=== PATIENT | male | born 1950 | race Caucasian/White ===

== ENCOUNTER 2021-05-31 09:42 | Outpatient (REF) | payer MEDICARE, SELFPAY ==
[2021-05-31 11:08] LABS: Alanine Aminotransferase 19 U/L (0-40); Alkaline Phosphatase 137 U/L (39-117); Anion Gap 15 (12-20); Aspartate Amino Transferase 20 U/L (5-37); Bilirubin Total 0.7 mg/dL (0.0-1.0); Blood Urea Nitrogen 33 mg/dL (9-16); Calcium 9.5 mg/dL (8.4-10.2); Carbon Dioxide 25 mmol/L (22-29); Chloride 103 mmol/L (96-108); Cholesterol 213 mg/dL; Estimated Glomerular Filt Rate 45; Glucose Fasting 153 mg/dL (60-99); HDL Cholesterol 38 mg/dL; LDL Cholesterol Calculated 135 mg/dl; Potassium 5.1 mmol/L (3.3-5.1); Sodium 138 mmol/L (135-145); Total Protein 7.2 g/dL (6.5-8.0); Triglycerides 204 mg/dL
== END 2021-05-31 09:43 | disposition home or self-care (01) ==
LOC: HO.LAB 09:42
PROVIDERS: PCP Internal Medicine; Visit Provider Nurse Practitioner Family
DX: E78.5 Hyperlipidemia, unspecified (principal); I25.10 Atherosclerotic heart disease of native coronary artery without angina pectoris
CPT/HCPCS: 36415; 80053; 80061

== ENCOUNTER → 2021-06-04 09:00 | Outpatient (BNVA) | payer MEDICARE, SELFPAY | PROVIDERS: PCP Internal Medicine; Referring Provider Internal Medicine; Visit Provider Internal Medicine Cardiovascular Disease | DX: I25.10 Atherosclerotic heart disease of native coronary artery without angina pectoris (principal); E78.5 Hyperlipidemia, unspecified | CPT/HCPCS: 93005; 99212 ==

== ENCOUNTER 2021-07-15 11:42 | Outpatient (REF) | payer MEDICARE, SELFPAY ==
[2021-07-15 12:47] LABS: Cholesterol 155 mg/dL; HDL Cholesterol 37 mg/dL; LDL Cholesterol Calculated 85 mg/dl; Triglycerides 168 mg/dL
== END 2021-07-15 11:43 | disposition home or self-care (01) ==
LOC: HO.LAB 11:42
PROVIDERS: PCP Internal Medicine; Visit Provider Internal Medicine Cardiovascular Disease
DX: I25.10 Atherosclerotic heart disease of native coronary artery without angina pectoris (principal)
CPT/HCPCS: 36415; 80061

== ENCOUNTER 2022-01-09 13:24 | Outpatient (REF) | payer MEDICARE, SELFPAY ==
[2022-01-09 16:29] LABS: Estimated Average Glucose 151 mg/dL; Hemoglobin A1c % 6.9 %
== END 2022-01-09 13:25 | disposition home or self-care (01) ==
LOC: HO.HMGCLDS 13:24
PROVIDERS: Visit Provider Internal Medicine
DX: E11.9 Type 2 diabetes mellitus without complications (principal)
CPT/HCPCS: 36415; 83036

== ENCOUNTER → 2022-01-14 10:27 | Outpatient (BNVA) | payer MEDICARE, SELFPAY | PROVIDERS: PCP Internal Medicine; Referring Provider Internal Medicine; Visit Provider Internal Medicine Cardiovascular Disease | DX: I25.10 Atherosclerotic heart disease of native coronary artery without angina pectoris (principal); E78.5 Hyperlipidemia, unspecified | CPT/HCPCS: 93005; 99212 ==

== ENCOUNTER → 2022-01-15 08:47 | Outpatient (REF) | payer MEDICARE, SELFPAY ==
--- NOTE | 2022-01-15 08:49 | CA_ITS ---
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 Accuracy to assess for ischemia decreased due to inabilitty to reach 85% MPHR. He requested to stop due to fatigue and sob. In recovery his BP returned to baseline, 148/60. Test reviewed with Dr Hoffman Referred By: Husam Barnes Overread By: JOYCE KAUR
== END ==
LOC: HO.CARD 08:47
PROVIDERS: PCP Internal Medicine; Visit Provider Internal Medicine Cardiovascular Disease
DX: I25.10 Atherosclerotic heart disease of native coronary artery without angina pectoris (principal)
CPT/HCPCS: 93017

== ENCOUNTER 2022-03-21 08:27 | Outpatient (REF) | payer MEDICARE, SELFPAY ==
[2022-03-21 08:40] LABS: MANUAL DIFF FLAG NO
[2022-03-21 09:25] LABS: Basophils Absolute Auto 0.1 X10*3/uL (0.0-0.2); Basophils Percent Auto 0.6 % (0-2); Eosinophils Absolute Auto 0.5 X10*3/uL (0.0-0.4); Eosinophils Percent Auto 3.7 % (0-4); Hematocrit 40.7 % (42.0-52.0); Hemoglobin 13.1 g/dl (14.0-18.0); Imm Gran Abs Auto 0.05 X10*3/uL (0.00-0.03); Imm Gran Pct Auto 0.4 % (0.0-0.4); Lymphocytes Absolute Auto 2.3 X10*3/uL (1.2-4.9); Lymphocytes Percent Auto 17.2 % (20-40); Mean Corpuscular HGB Conc 32.2 g/dl (31.0-36.0); Mean Corpuscular Hemoglobin 29.3 pg (27.0-33.0); Mean Corpuscular Volume 91.1 fL (80.0-98.0); Mean Platelet Volume 10.5 fL (9.4-12.4); Monocytes Absolute Auto 1.5 X10*3/uL (0.1-1.2); Monocytes Percent Auto 11.3 % (2-11); Neutrophils Absolute Auto 8.9 x10*3/uL (2.0-8.3); Neutrophils Percent Auto 66.8 % (45-73); Platelet Count 356 X10*3/uL (160-400); Red Blood Count 4.47 X10*6/uL (4.60-5.80); Red Cell Distribution Width 14.7 % (11.0-16.0); White Blood Count 13.3 X10*3/uL (4.8-10.8)
[2022-03-21 09:59] LABS: Alanine Aminotransferase 43 U/L (0-40); Alkaline Phosphatase 123 U/L (39-117); Anion Gap 15 (12-20); Aspartate Amino Transferase 31 U/L (5-37); Bilirubin Direct 0.3 mg/dL (0.0-0.5); Bilirubin Total 0.7 mg/dL (0.0-1.0); Blood Urea Nitrogen 29 mg/dL (9-16); Carbon Dioxide 24 mmol/L (22-29); Chloride 106 mmol/L (96-108); Cholesterol 130 mg/dL; Estimated Glomerular Filt Rate 48; Glucose Fasting 165 mg/dL (60-99); HDL Cholesterol 37 mg/dL; LDL Cholesterol Calculated 69 mg/dl; Potassium 5.6 mmol/L (3.3-5.1); Sodium 139 mmol/L (135-145); Total Protein 7.2 g/dL (6.5-8.0); Triglycerides 120 mg/dL
[2022-03-21 10:21] LABS: PSA,Total (Free>4and<10) 0.94 ng/mL (0.00-4.00)
== END 2022-03-21 08:28 | disposition home or self-care (01) ==
LOC: HO.LAB 08:27
PROVIDERS: PCP Internal Medicine; Visit Provider Internal Medicine
DX: Z12.5 Encounter for screening for malignant neoplasm of prostate (principal); R53.83 Other fatigue; E11.9 Type 2 diabetes mellitus without complications; E78.5 Hyperlipidemia, unspecified
CPT/HCPCS: 36415; 80051; 80061; 80076; 82565; 82947; 84153; 84520; 85025

== ENCOUNTER 2022-04-13 08:07 | Outpatient (REF) | payer MEDICARE, SELFPAY ==
[2022-04-13 11:27] LABS: Estimated Average Glucose 151 mg/dL; Hemoglobin A1c % 6.9 %
== END 2022-04-13 08:08 | disposition home or self-care (01) ==
LOC: HO.HMGCLDS 08:07
PROVIDERS: PCP Internal Medicine; Visit Provider Internal Medicine
DX: E11.9 Type 2 diabetes mellitus without complications (principal)
CPT/HCPCS: 36415; 83036

== ENCOUNTER 2022-04-16 09:49 | Outpatient (REF) | payer MEDICARE, SELFPAY ==
[2022-04-16 11:01] LABS: Blood Urea Nitrogen 35 mg/dL (9-16); Estimated Glomerular Filt Rate 51
== END 2022-04-16 09:50 | disposition home or self-care (01) ==
LOC: HO.LAB 09:49
PROVIDERS: PCP Internal Medicine; Visit Provider Internal Medicine Cardiovascular Disease
DX: I25.10 Atherosclerotic heart disease of native coronary artery without angina pectoris (principal); I10 Essential (primary) hypertension; E87.5 Hyperkalemia
CPT/HCPCS: 36415; 82565; 84132; 84520; 99212

== ENCOUNTER → 2022-08-19 09:55 | Outpatient (BNVA) | payer MEDICARE, SELFPAY | PROVIDERS: PCP Internal Medicine; Referring Provider Internal Medicine; Visit Provider Internal Medicine Cardiovascular Disease | DX: I10 Essential (primary) hypertension (principal); I25.10 Atherosclerotic heart disease of native coronary artery without angina pectoris; E78.5 Hyperlipidemia, unspecified | CPT/HCPCS: 99212 ==

== ENCOUNTER → 2023-01-13 12:53 | Outpatient (BNVA) | payer MEDICARE, SELFPAY | PROVIDERS: PCP Internal Medicine; Referring Provider Internal Medicine; Visit Provider Internal Medicine Cardiovascular Disease | DX: I10 Essential (primary) hypertension (principal); I25.10 Atherosclerotic heart disease of native coronary artery without angina pectoris; E78.5 Hyperlipidemia, unspecified; R60.9 Edema, unspecified; Z79.02 Long term (current) use of antithrombotics/antiplatelets; Z79.82 Long term (current) use of aspirin; Z79.899 Other long term (current) drug therapy | CPT/HCPCS: 93005; 99212 ==

== ENCOUNTER 2023-05-15 08:54 | Outpatient (REF) | payer MEDICARE, SELFPAY ==
[2023-05-19 15:43] LABS: NT-proBNP 105 pg/mL (<125)
== END 2023-05-15 08:55 | disposition home or self-care (01) ==
LOC: HO.LAB 08:54
PROVIDERS: PCP Internal Medicine; Visit Provider Internal Medicine Cardiovascular Disease
DX: R60.9 Edema, unspecified (principal)
CPT/HCPCS: 36415; 83880

== ENCOUNTER 2023-05-19 13:48 | Outpatient (AMB) | payer MEDICARE, SELFPAY ==
[2023-05-19 13:49] VITALS: BP 138/64; PULSE 88; BMI 37.2
--- NOTE | 2023-05-19 13:49 | MHC.OFFVIS ---
Intake Vital Signs 05/19/23 13:49 Height 5 ft 9 in Weight 252 lb 3.341 oz BMI 37.2 BP 138/64 Blood Pressure Location Lt brachial Position Sitting Pulse 88 Pulse Source Pulse Oximeter Intake Visit Reasons: 4 mth f/up Intake Note: 4 month follow up. Automation Tester Required: No Accompanied by: Self / Same As Patient Allergies No Known Allergies Allergy (Verified 05/19/23 13:51) Medication List - Last Reconciled 05/19/23 by Husam Barnes MD aspirin 81 mg PO DAILY atorvastatin 80 mg PO BEDTIME 90 days clopidogrel (Plavix) 75 mg PO DAILY ezetimibe 10 mg PO DAILY fluorouracil 5% appl topical BID furosemide (Lasix) 20 mg PO DAILY glyburide 10 mg PO BID hydrochlorothiazide 50 mg PO DAILY isosorbide mononitrate ER 30 mg PO DAILY lisinopril 20 mg PO BID metformin 1,000 mg PO BID metoprolol succinate ER 200 mg PO DAILY nifedipine ER 90 mg PO DAILY HPI HPI Comments History of Present Illness Details Pleasant 73-year-old gentleman here for follow-up. He has background history of coronary artery disease for which he underwent RCA PCI in the past he had moderate LAD disease which was medically managed. He has not complained of any symptoms since the RCA PCI. 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 He had a hypertensive response to exercise during the stress test but did not have any ischemic EKG changes or chest discomfort. He was able to exercise to a maximum workload of 6.4 metabolic equivalents. On follow-up today he has no new complaints. His blood pressure is 140/62. He has been taking medications regularly. He is currently taking hydrochlorothiazide 50 mg daily, lisinopril 20 mg twice a day, metoprolol succinate 200 mg daily and nifedipine extended release 90 mg daily. Denying any chest discomfort shortness of breath. Does not take extra salt in diet. Does not drink alcohol. Not on any NSAIDs. 01/13/23: On follow-up today he has significant peripheral edema. He is saying his legs are swollen all the time. Denying any orthopnea or PND. Saying his breathing is at his baseline. We discussed and added low-dose Lasix 20 mg once a day. He was advised to get repeat blood workup as well as BNP. It appears he did not have any blood workup. 7/12/23: He returns for follow-up. He still has lower extremity edema. He is denying any chest pain or shortness of breath. Taking medications regularly. Blood pressure control is reasonable. [facility] Surgical History History of cardiac cath Family History Mother No problems noted. Father No problems noted. Social History Alcohol intake: never Patient Tobacco Use Status: Never used Tobacco Review of Systems Const Denies weakness ENT Denies dizziness Card Denies chest pain, Denies chest pain with activity, Denies syncope, Denies rapid heart rate, Denies pedal edema, Denies edema, Denies leg edema, Denies lightheadedness, Denies palpitations, Denies dyspnea, Denies dyspnea on exertion and Denies orthopnea Resp Denies cough, Denies dyspnea and Denies dyspnea on exertion GI Denies hematochezia and Denies change in stool character Musc Denies abnormal gait, Denies muscle cramps, Denies muscle weakness, Denies numbness, Denies radiating pain into limb and Denies tingling Neuro Denies abnormal gait, Denies dizziness, Denies syncope, Denies numbness, Denies tingling and Denies weakness Endo Denies palpitations Physical Exam Vital Signs: Last Vital Signs Pulse 88 05/19/23 13:49 BP 138/64 05/19/23 13:49 BMI result Body Mass Index 37.2 GENERAL APPEARANCE: in no acute distress, pleasant. NECK: no carotid bruit, no jugular venous distention. SKIN: no suspicious lesions, warm and dry. HEART: no murmurs, regular rate and rhythm. LUNGS: clear to auscultation bilaterally. ABDOMEN: soft, nontender. EXTREMITIES: 1+ edema. PERIPHERAL PULSES: equal. NEUROLOGIC: No gross deficits, AAO X 3 Assessment & Plan Assessment & Plan (1) Essential hypertension: Code(s): I10 - Essential (primary) hypertension (2) CAD (coronary artery disease): Code(s): I25.10 - Atherosclerotic heart disease of [place] coronary artery without angina pectoris (3) Peripheral edema: Code(s): R60.9 - Edema, unspecified (4) HLD (hyperlipidemia): Code(s): E78.5 - Hyperlipidemia, unspecified Plan [age] gentleman with known coronary artery disease with previous PCI. He has background of hypertension and hyperlipidemia. He is currently taking atorvastatin and ezetimibe. Blood pressure control is good. He has peripheral edema most likely due to nifedipine. He is on hydrochlorothiazide and Lasix 20 mg once a day. Clinically not in heart failure. We will arrange an elective echocardiogram for him. He should have fasting lipid panel once a year and by yearly basic metabolic panel. He is saying he had blood workup done recently but it appears it was not done at [facility]. Thank you for allowing me to participate in the care of your patient. Please feel free to contact me if you have any questions. Orders: Orders CA echo transthoracic complete Today I25.10 - Atherosclerotic heart disease of [place] coronary artery without angina pectoris Coding Level of Care Code Est Pt Level 4 (32744) Diagnoses Essential hypertension I10 CAD (coronary artery disease) I25.10 Peripheral edema R60.9 HLD (hyperlipidemia) E78.5
== END 2023-05-19 14:03 | disposition home or self-care (01) ==
PROVIDERS: Visit Provider Internal Medicine Cardiovascular Disease
DX: I10 Essential (primary) hypertension (principal); I25.10 Atherosclerotic heart disease of native coronary artery without angina pectoris; R60.9 Edema, unspecified; E78.5 Hyperlipidemia, unspecified
CPT/HCPCS: 99214

== ENCOUNTER → 2023-05-19 13:48 | Outpatient (BNVA) | payer MEDICARE, SELFPAY | PROVIDERS: Visit Provider Internal Medicine Cardiovascular Disease | DX: I10 Essential (primary) hypertension (principal); I25.10 Atherosclerotic heart disease of native coronary artery without angina pectoris; E78.5 Hyperlipidemia, unspecified; R60.9 Edema, unspecified | CPT/HCPCS: 99212 ==

== ENCOUNTER → 2023-06-22 09:53 | Outpatient (REF) | payer MEDICARE, SELFPAY ==
--- NOTE | 2023-06-22 09:55 | CA_ITS ---
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 Study Quality: Fair/Contrast Conclusions: - Mildly increased right ventricular cavity size. There is normal right ventricular systolic function. - The left atrium is mildly dilated. The right atrium is normal in size. - There is mild calcification of the aortic valve. There is no aortic valve stenosis. There is no aortic valve regurgitation. - There is mild dilatation of the sinuses of Valsalva measuring 4.12 cm and mild dilatation of the ascending aorta measuring 3.70 cm. - Normal left ventricular cavity size. There is mildly increased left ventricular wall thickness. The left ventricular systolic function is hyperdynamic. The visually estimated ejection fraction is >70%. There is no evidence of regional wall motion abnormalities. Diastolic function is normal for age. Findings Procedure Information Contrast agent, definity, is being given per protocol without apparent complications. Left Ventricle Normal left ventricular cavity size. There is mildly increased left ventricular wall thickness. The left ventricular systolic function is hyperdynamic. The visually estimated ejection fraction is >70%. There is no evidence of regional wall motion abnormalities. Diastolic function is normal for age. Right Ventricle Mildly increased right ventricular cavity size. There is normal right ventricular systolic function. Atria The left atrium is mildly dilated. The right atrium is normal in size. Aortic Valve There is mild calcification of the aortic valve. There is no aortic valve stenosis. There is no aortic valve regurgitation. Mitral Valve Normal mitral valve structure and function. There is no mitral valve regurgitation. There is no mitral valve stenosis. Pulmonic Valve The pulmonic valve is likely normal. Tricuspid Valve Normal tricuspid valve structure and function. There is trace tricuspid valve regurgitation. Normal right atrial pressure. There is no evidence of pulmonary hypertension. Great Vessels There is mild dilatation of the sinuses of Valsalva measuring 4.12 cm and mild dilatation of the ascending aorta measuring 3.70 cm. The visualized portions of the pulmonary artery and branches are normal. Venous The inferior vena cava is normal in size and collapses greater than 50% with inspiration. Pericardium/Pleural There is no evidence of pericardial effusion. Prior Study Comparison No prior study available for comparison. Measurements 2D Linear Measurements IVSd: 1.34 0.6-0.9/0.6-1.0 cm LVIDd: 4.59 3.9-5.3/4.2-5.9 cm LVIDd Index: 2.01 2.4-3.2/2.2-3.1 cm/m2 LVIDs: 2.42 2.0-3.6 cm LVPWd: 1.06 0.7-1.1 cm LA Diam: 3.60 2.7-3.8/3.0-4.0 cm LAIDs Index: 1.58 1.5-2.3 cm/m2 LV Mass: 254.62 67-162/88-224 g LV Mass Index: 111.68 43-95/49-115 g/m2 LVOT Diam: 2.30 3.0+(-)1.3 cm 2D Systolic Function EF 4C: 59.90 >55% EF 2C: 62.00 >55% EF BiP: 60.90 >55% Mitral Valve MV Pk E: 0.63 MV PK A: 0.93 MV Decel Time: 120.00 E/A: 0.70 E'Lateral: 11.40 E'Medial: 9.14 E/E' Med: 6.80 E/E' Lat: 5.50 PHT: 35.00 MVA PHT: 6.29 Decel Sargent: 5.23 Aortic Valve AoV Pk Yaw: 1.39 AoV Mn Yaw: 1.00 AoV VTI: 0.29 AoV Pk Grad: 8.00 Aov Mn Grad: 4.00 MELISSA Cont.VTI: 3.11 LVOT LVOT Pk Yaw: 1.06 LVOT Mn Yaw: 0.76 LVOT VTI: 0.22 LVOT Pk Grad: 4.00 LVOT Mn Grad: 3.00 LVOT Diam: 2.30 LVOT Area: 4.15 Diastolic Function MV Pk E: 0.63 MV Pk A: 0.93 E/A: 0.70 E'Medial: 9.14 E/E' Med: 6.80 E' Laterial: 11.40 E/E' Lat: 5.50 Right Ventricle TAPSE (mm): 24.40 TVS' Yaw: 14.80 Tricuspid Valve TR Pk Yaw: 2.74 TR Pk Grad: 30.00 RA Press: 3.00 RVSP: 33.00 Great Vessels Aorta Sinus of Valsalva: 4.12 2.0-3.[address] [place]: 3.19 1.7-3.4 cm Ao Asc: 3.70 2.1-3.4 cm Updated in Other Vendor System with Status of Final Husam Barnes MD electronically signed on 06/23/2023 12:33:51 PM with status of Final
== END ==
LOC: HO.CARD 09:53
PROVIDERS: PCP Internal Medicine; Visit Provider Internal Medicine Cardiovascular Disease
DX: I25.10 Atherosclerotic heart disease of native coronary artery without angina pectoris (principal)
CPT/HCPCS: 93306; Q9957

== ENCOUNTER → 2023-06-22 09:55 | Outpatient (BNV) | payer MEDICARE, SELFPAY | PROVIDERS: PCP Internal Medicine; Visit Provider Internal Medicine Cardiovascular Disease | DX: I25.10 Atherosclerotic heart disease of native coronary artery without angina pectoris (principal) | CPT/HCPCS: 93306 ==

== ENCOUNTER 2023-07-31 09:08 | Outpatient (REF) | payer MEDICARE, SELFPAY ==
[2023-07-31 11:00] LABS: Estimated Average Glucose 137 mg/dL; Hemoglobin A1c % 6.4 % (<6.0)
== END 2023-07-31 09:09 | disposition home or self-care (01) ==
LOC: HO.LAB 09:08
PROVIDERS: PCP Internal Medicine; Visit Provider Internal Medicine
DX: E11.9 Type 2 diabetes mellitus without complications (principal)
CPT/HCPCS: 36415; 83036

== ENCOUNTER 2023-08-13 13:14 | Outpatient (AMB) | payer MEDICARE, SELFPAY ==
--- NOTE | 2023-08-13 13:52 | MHC.OFFWIV ---
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 no known injuries. Patient Tobacco Use Status: Never used Tobacco Allergies No Known Allergies Allergy (Verified 08/13/23 13:53) Do you need a note to return to daycare/school/sports/work: No HPI HPI Comments History of Present Illness Details This is a 73-year-old male who presents to the office today for sick visit. Patient complaining of atraumatic left wrist pain and swelling x1 day. Patient states he started to developed left wrist pain and swelling yesterday to the point where he was unable to flex or extend his wrist. Today, the pain and swelling have persisted but patient is able to perform range of motion of his wrist with less pain. He states that the pain has improved since yesterday. He denies any known trauma or injury to the area and states that the pain and swelling came out of nowhere. He denies any numbness/ weakness /paresthesias of his upper extremity. [facility] Surgical History History of cardiac cath Family History Mother No problems noted. Father No problems noted. Social History Alcohol intake: never Patient Tobacco Use Status: Never used Tobacco Review of Systems Const All systems reviewed & are unremarkable except as noted in HPI and below Reports no additional complaints Eyes Reports no additional complaints ENT Reports no additional complaints Card Reports no additional complaints Resp Reports no additional complaints GI Reports no additional complaints Reports no additional complaints Musc Reports no additional complaints Skin/Breast Reports system reviewed and no additional complaints, except as documented Neuro Reports no additional complaints Psych Reports no additional complaints Endo Reports no additional complaints [place]/Lymph Reports no additional complaints Aller/Immun Reports no additional complaints Physical Exam Vital Signs: Last Vital Signs Pulse 80 08/13/23 13:53 BP 120/80 08/13/23 13:53 Pulse Ox 95 08/13/23 13:53 Oxygen Delivery Method Room Air 08/13/23 13:53 Const Other: Vital signs reviewed. Constitutional: Non-toxic appearing. No acute distress. Well-developed and well-nourished. HEENT: Normocephalic and atraumatic. Skin: Warm and dry. No rashes or lesions noted. Neck: Full and painless range of motion. No cervical lymphadenopathy. Cardio: Regular rate. No lower extremity edema. No JVD. Pulmonary: No respiratory distress. No accessory muscle usage. Gastrointestinal: Soft, nontender, and nondistended in all 4 quadrants. Musculoskeletal: Swelling of the left wrist with tenderness to palpation of the metacarpals on the dorsal aspect of the wrist. He has full but painful flexion and extension of the wrist. There is no tenderness to palpation of the proximal radius/ ulna or the radial/ulnar styloid process. There is no erythema or ecchymosis noted. Neuro: Alert and oriented x4. Cranial nerves 2-12 grossly intact. No focal deficits appreciated. Psych: Normal mood and affect. Assessment & Plan Assessment & Plan (1) Swelling of left wrist: Code(s): M25.432 - Effusion, left wrist Plan: This is a 73-year-old male presenting to the office complaining of atraumatic left wrist pain / swelling. On physical examination, there is swelling of the left wrist as well as tenderness to palpation of the metacarpals dorsal aspect of the wrist. Patient appeared to have an atraumatic left wrist effusion. No evidence of erythema and patient is able to move his wrist so septic arthritis is unlikely. An x-ray of the left wrist was obtained and shows a possible fracture of the waist of the scaphoid. We attempted to call the patient to discuss his results with him but we did not receive a phone call. Patient should proceed to the emergency room for CT scan to definitively rule out a scaphoid fracture as this would need to be immobilized. Patient was provided with orthopedic surgery referral. He was also given a prescription for p.o. prednisone 40 mg daily times 5 days as he is unable to take NSAIDs due to a history of cardiac disease. Orders: Orders XR wrist LT 2V Today M25.432 - Effusion, left wrist Referrals Orthopedics Referral M25.432 - Effusion, left wrist Medications: New prednisone Monitor your blood sugars while taking this medication. 40 mg (2 x 20 mg) PO DAILY 5 tabs 0RF prednisone Monitor your blood sugars while taking this medication. 40 mg (2 x 20 mg) PO DAILY 10 tabs 0RF Coding Level of Care Code New Pt Level 3 (13998) Diagnoses Swelling of left wrist M25.432
[2023-08-13 13:53] VITALS: BP 120/80; PULSE 80; O2SAT 95
== END 2023-08-13 14:29 | disposition home or self-care (01) ==
PROVIDERS: PCP Internal Medicine; Visit Provider Physician Assistant Medical
DX: M25.432 Effusion, left wrist (principal)
CPT/HCPCS: 99203

== ENCOUNTER 2023-08-13 14:23 | Outpatient (REF) | payer MEDICARE, SELFPAY | END 2023-08-13 14:24 | disposition home or self-care (01) | LOC: HO.HMGCX 14:23 | PROVIDERS: PCP Internal Medicine; Visit Provider Physician Assistant Medical | DX: M25.432 Effusion, left wrist (principal) | CPT/HCPCS: 73100 ==

== ENCOUNTER 2023-08-14 08:53 | Emergency (ER) | payer MEDICARE, SELFPAY ==
[2023-08-14 09:02] VITALS: BP 154/70; PULSE 74; RESP 18; TEMP 36.6; O2SAT 96; BMI 36.0
--- NOTE | 2023-08-14 09:55 | ED.EXTPRO ---
HPI - Extremity Problem General Chief complaint: Extremity Injury, Upper Stated complaint: L arm pain Time Seen by Provider: 08/14/23 09:48 Source: patient Mode of arrival: ambulatory Limitations: no limitations History of Present Illness HPI Narrative: 73-year-old male with a history of hypertension, hyperlipidemia, coronary artery disease presents to the ER with complaints of atraumatic left wrist pain for 2 days. Patient reports he went to walk-in urgent care yesterday and had x-rays of the wrist. He was prescribed prednisone for 5 days and given referral for Hand surgery to follow-up. Patient was called and informed that his x-ray was abnormal and he should seek care in the emergency room. The patient denies any previous injury or trauma. He denies any redness, warmth, fevers, chills, numbness, tingling of the extremity. Related Data Home Medications Medication Instructions Recorded Confirmed aspirin 81 mg tablet,delayed 81 mg PO DAILY 06/04/21 05/19/23 release glyburide 5 mg tablet 10 mg PO BID 06/04/21 05/19/23 metformin 1,000 mg tablet 1,000 mg PO BID 06/04/21 05/19/23 metoprolol succinate 200 mg 200 mg PO DAILY 06/04/21 05/19/23 tablet,extended release 24 hr nifedipine 90 mg tablet,extended 90 mg PO DAILY 06/04/21 05/19/23 release lisinopril 20 mg tablet 20 mg PO BID 01/14/22 05/19/23 fluorouracil 5 % topical cream appl topical BID 04/16/22 05/19/23 Previous Rx's Medication Instructions Recorded clopidogrel 75 mg tablet (Plavix) 75 mg PO DAILY #90 tabs 01/14/21 ezetimibe 10 mg tablet 10 mg PO DAILY #90 tabs 10/12/22 hydrochlorothiazide 50 mg tablet 50 mg PO DAILY #60 tabs 01/06/23 furosemide 20 mg tablet (Lasix) 20 mg PO DAILY #60 tabs 01/13/23 isosorbide mononitrate 30 mg 30 mg PO DAILY #90 tabs 03/12/23 tablet,extended release 24 hr atorvastatin 80 mg tablet 80 mg PO BEDTIME 90 days #90 tabs 03/15/23 prednisone 20 mg tablet 40 mg (2 x 20 mg) PO DAILY #10 tabs 08/13/23 Allergies Allergy/AdvReac Type Severity Reaction Status Date / Time No Known Allergies Allergy Verified 08/14/23 09:02 Review of Systems Review of Systems: Yes all other systems are reviewed and are negative Constitutional: Constitutional: Reports no additional constitutional complaints, Denies body ache(s), Denies chills, Denies fever(s), Denies headache(s) and Denies weakness Eyes: Eyes: Reports no additional eye complaints and Denies change in vision ENT: Reports system reviewed and no additional complaints, except as documented, Denies dizziness, Denies headache(s), Denies nasal congestion, Denies nasal discharge and Denies neck pain Cardiovascular: Cardiovascular: Reports no additional cardiovascular complaints, Denies chest pain, Denies leg edema and Denies dyspnea Respiratory: Respiratory: Reports no additional respiratory complaints, Denies cough and Denies dyspnea Gastrointestinal: Gastrointestinal: Reports no additional gastrointestinal complaints, Denies abdominal pain, Denies diarrhea, Denies nausea and Denies vomiting Genitourinary: Genitourinary: Denies urinary incontinence Musculoskeletal: Musculoskeletal: Reports no additional musculoskeletal complaints, Denies back pain, Reports arthralgias, Denies joint swelling, Denies limited range of motion, Denies neck pain, Denies numbness and Denies tingling Integumentary/Breasts: Skin/Breast: Reports system reviewed and no additional complaints, except as docu and Denies rash Neurologic: Reports system reviewed and no additional complaints, except as documented, Denies Abnormal speech present, Denies dizziness, Denies headache(s), Denies numbness, Denies tingling and Denies weakness PMFSH Past Medical History Attestation statement: The following information was validated with the patient. Source: old records reviewed and nursing notes reviewed Surgical History History of cardiac cath Family History Family History Mother No problems noted. Father No problems noted. Social History Social History Alcohol intake: never Patient Tobacco Use Status: Never used Tobacco Advance Directives: No Advance Directives Information Provided: Yes Physical Exam Vital Signs: Vital Signs: Last Vital Signs Temp 98 F 08/14/23 09:02 Pulse 74 10/07/23 09:02 Resp 18 08/14/23 09:02 BP 154/70 H 08/14/23 09:02 Pulse Ox 96 08/14/23 09:02 O2 Del Method Room Air 08/14/23 09:02 BMI result Body Mass Index 36.0 Const: General: cooperative, healthy appearing, comfortable and no acute distress Orientation/consciousness: patient oriented x3 Limitations: no limitations HEENT: Head: Yes normal to inspection Ears: hearing grossly normal bilaterally General nose exam: Normal external nose present Face and sinus: Yes normal facial exam Mouth: Normal oral and palatal mucosa present Throat: Yes posterior oropharynx normal Eyes: General: appearance normal, both eyes and all related structures Pupils: Equal, round and reactive pupils present Neck: Neck: Yes normal visual inspection Chest: Chest palpation & inspection: normal inspection of the chest Resp: Effort & Inspection: normal respiratory effort Auscultation: clear to auscultation bilaterally Cardio: Rate: regular rate Rhythm: regular rhythm Peripheral pulses: Peripheral pulses 2+ throughout GI: Inspection: Yes normal to inspection Palpation (GI): Soft to palpation and nontender Auscultation: normal bowel sounds Back/Spine/Pelvis: Thoracic/Lumbar Spine: thoracic and lumbar spine normal to inspection Skin: General skin exam: no rashes or lesions noted Neuro: General: patient oriented x3, no focal motor deficits and normal sensation to monofilament Cranial nerves: Yes Equal, round and reactive pupils present Cognition (Neuro): normal cognition Speech: No Abnormal speech present Gait exam (Neuro): Normal gait present Motor exam (neuro): 5/5 motor strength present throughout Extrem: Other: There is some mild tenderness over the left dorsal wrist. There is no tenderness over the snuffbox. There is full passive an active range of motion of the wrist. I do not appreciate any erythema, warmth, swelling. There are normal radial and ulnar pulses. General: Yes normal to inspection Medical Decision Making Medical Decision Making MDM Narrative: 73-year-old male with a history of hypertension, hyperlipidemia, coronary artery disease presents to the ER with complaints of atraumatic left wrist pain for 2 days. Patient reports he went to walk-in urgent care yesterday and had x-rays of the wrist. He was prescribed prednisone for 5 days and given referral for Hand surgery to follow-up. Patient was called and informed that his x-ray was abnormal and he should seek care in the emergency room. The patient denies any previous injury or trauma. He denies any redness, warmth, fevers, chills, numbness, tingling of the extremity. There is some mild tenderness over the left dorsal wrist. There is no tenderness over the snuffbox. There is full passive an active range of motion of the wrist. I do not appreciate any erythema, warmth, swelling. There are normal radial and ulnar pulses. I reviewed the outpatient x-rays which are concerning for a possible scaphoid fracture. This seems less likely as the patient has had no injury or trauma. Additionally he has no significant tenderness over the snuffbox or any limited range of motion to suggest a fracture. I will place him in a thumb spica Velcro splint. He has already been given referral for Orthopedics and is on prednisone which I recommend he continue With this plan of care. Reviewed worrisome signs and symptoms of when to return to the emergency room. Comfortable plan for discharge home. Differential Diagnosis Differential Diagnoses: The differential diagnosis associated with the presentation includes Fracture- see discussion above arthritis low concern for septic arthritis with full range of motion Admission/Observation Consideration of admission/observation: Escalation of care including admission/observation considered less likely fracture based on clinical exam in history of present illness. No evidence of septic arthritis suggest need for further workup and/or admission or orthopedic consultation emergently External Record Review External record reviewed: Outpatient record and Prior outpatient radiology reviewed outpatient urgent care visit and x-rays Tests considered The following testing was considered but not selected: no need for emergent CT or MRI. Patient can follow-up with orthopedics outpatient for this. Prescription Management I considered prescription management with: Pain Medication Chronic Conditions Patient?s care impacted by: Hypertension Discharge Plan Discharge Clinical Impression: Acute wrist pain Patient Disposition: Home, Self-Care Instructions: Arthralgia (ED) Additional Instructions: your x-ray is concerning for a fracture in the scaphoid bone. Clinically you do not have any tenderness over this area and no history of any fall or trauma to suggest a fracture. You were prescribed prednisone by urgent care. I recommend that you continue this. Call the orthopedic team on Wednesday to make an appointment to follow-up. Take Tylenol for pain additionally. Use the splint for comfort. Heat or ice to the area. Prescriptions: No Action clopidogrel [Plavix] 75 mg tablet 75 mg PO DAILY Qty: 90 1RF ezetimibe 10 mg tablet 10 mg PO DAILY Qty: 90 3RF hydrochlorothiazide 50 mg tablet 50 mg PO DAILY Qty: 60 3RF isosorbide mononitrate 30 mg tablet extended release 24 hr 30 mg PO DAILY Qty: 90 3RF atorvastatin 80 mg tablet 80 mg PO BEDTIME 90 Days Qty: 90 3RF prednisone 20 mg tablet 40 mg PO DAILY Qty: 10 0RF Rx Instructions: Monitor your blood sugars while taking this medication. glyburide 5 mg tablet 10 mg PO BID metoprolol succinate 200 mg tablet extended release 24 hr 200 mg PO DAILY nifedipine 90 mg tablet extended release 90 mg PO DAILY metformin 1,000 mg tablet 1,000 mg PO BID aspirin 81 mg tablet,delayed release (DR/EC) 81 mg PO DAILY lisinopril 20 mg tablet 20 mg PO BID fluorouracil 5 % cream topical BID furosemide [Lasix] 20 mg tablet 20 mg PO DAILY Qty: 60 3RF [place]: [facility] [place] Group] - 5 days Interventions: ED Discharge Assessment Last Done: 08/14/23 10:37 Discharge Date/Time: 08/14/23 10:38
== END 2023-08-14 10:38 | disposition home or self-care (01) ==
PROVIDERS: Emergency Provider Emergency Medicine Emergency Medical Services; PCP Internal Medicine
DX: M25.532 Pain in left wrist (principal); I10 Essential (primary) hypertension; E78.5 Hyperlipidemia, unspecified; Z79.82 Long term (current) use of aspirin; Z79.899 Other long term (current) drug therapy
CPT/HCPCS: 29125; 99282; 99283

== ENCOUNTER 2023-08-24 10:41 | Outpatient (REF) | payer MEDICARE, SELFPAY ==
--- NOTE | ~2023-08-24 | XR_ITS ---
EXAMINATION: XR wrist LT w scaphoid CLINICAL INFORMATION: Male of 73 years with history of Reason for Exam M25.532 - Pain in left wrist COMPARISON: 08/13/2023 TECHNIQUE: PA, lateral, and oblique views of the left wrist. FINDINGS: The bones and soft tissues are normal. No fracture. Alignment is anatomic with normal joint spaces. No erosions or abnormal soft tissue calcifications. No fracture of the left wrist. Anatomic alignment. No lytic or sclerotic osseous lesions. Diffuse degenerative changes of the left wrist with joint space narrowing and osteophytosis. No vascular calcifications. No soft tissue edema. XR/XR wrist LT w scaphoid IMPRESSION: Normal left wrist. No evidence of scaphoid fracture
== END 2023-08-24 10:42 | disposition home or self-care (01) ==
LOC: HO.HOSX 10:41
PROVIDERS: PCP Internal Medicine; Visit Provider Orthopaedic Surgery
DX: M25.532 Pain in left wrist (principal)
CPT/HCPCS: 73110; 99202

== ENCOUNTER 2023-08-24 10:41 | Outpatient (AMB) | payer MEDICARE, SELFPAY ==
--- NOTE | 2023-08-24 11:10 | MHC.OFFVIS ---
Intake Vital Signs 08/24/23 11:11 Height 5 ft 9 in Weight 245 lb BMI 36.2 Intake Visit Reasons: scaphoid injury-Left wrist DOI 08/14/23 Intake Note: Juan Antonio 73 yr old male who is right h and dominant, presents today for a new patient visit for his scaphoid injury-Left wrist DOI 08/14/23. Patient reports he started to experience soreness and worsen by the end of the day. States pain was so severe he was not able to move wrist. Denies injury, numbness, tingling or locking of any finger. Seen at urgent care where xray were done and was told he might have a fracture. Currently states pain has subside and is able to move his hand and wrist with no pain. A1C is a 6.5, last checked in July. Allergies No Known Allergies Allergy (Verified 08/24/23 11:26) HPI scaphoid injury-Left wrist DOI 08/14/23 HPI Details Juan Antonio is a 73 year old right hand dominant man who presents to discuss his left wrist pain. He reports having pain in his left wrist, which began on 08/12/23 and worsened over the next few days. No known injury. He was seen in the ED on 08/14/23, given PO Prednisone and referred here as he was told his X-rays were abnormal . Currently he denies any pain and feels that he is able to move his wrist comfortably. He denies any falls, injury, numbness, or tingling. 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 [facility] Surgical History History of cardiac cath Family History Mother No problems noted. Father No problems noted. 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 Review of Systems Const All systems reviewed & are unremarkable except as noted in HPI and below Physical Exam Vital Signs: BMI result Body Mass Index 36.2 Const General: cooperative, healthy appearing and no acute distress Orientation/consciousness: patient oriented x3 HEENT Head: Yes normocephalic and Yes atraumatic Eyes EOM: EOMs intact bilaterally Resp Effort & Inspection: normal respiratory effort and able to speak in complete sentences Cardio Jugular venous distension: no JVD Skin General skin exam: turgor normal Rashes: no rashes Neuro General: patient oriented x3 Extrem Other: Evaluation of Left Upper Extremity: The patient is alert, oriented, and in no acute distress Neuro: Median, Ulnar, Radial nerves motor and sensory intact and sensation is normal to the tips of all digits Vascular: Cap refill brisk ROM: He can make a tight fist with good strength and no pain Full & symmetrical pronosupination Nearly symmetrical wrist flexion & extension without pain No tenderness over distal radius, DRUJ, or distal ulna He says he was tender over the dorsal aspect of the distal radius when I pushed on it, but denies any tenderness today No tenderness over the 1st dorsal compartment No snuffbox or scaphoid tubercle tenderness Mild tenderness over the dorsal aspect of the radial lunate joint Skin: No lacerations or abrasions. General: No Ecchymosis. No Erythema or evidence of infection. Radiographs: 3 views of the left wrist were taken and viewed by me today in clinic. They show some small cystic changes in the distal third of the scaphoid, no evidence of fracture or dislocation Psych Appearance: grossly normal Affect: normal affect Attitude: cooperative Assessment & Plan Assessment & Plan (1) Left wrist pain: Code(s): M25.532 - Pain in left wrist Plan Assessment & Plan: 1. Left wrist pain No clinical or radiographic evidence of scaphoid fracture today I educated him about this condition He currently has no pain or limited use of his wrist I suspect this may have been a tendinitis but this seems to have improved with rest and bracing No surgical intervention indicated at this time I recommend he continue activity as tolerated He is no longer wearing his brace If his symptoms return he can follow up to discuss Otherwise follow-up prn Scribed for Tonya Schaffer MD by Juancarlos Lux, medical surgical tech, on 08/24/23 at 12:00 PM, EST. Orders: Orders XR wrist LT w scaphoid Today M25.532 - Pain in left wrist Coding Level of Care Code New Pt Level 3 (09619) Diagnoses Left wrist pain M25.532
[2023-08-24 11:11] VITALS: BMI 36.2
== END 2023-08-24 12:00 | disposition home or self-care (01) ==
PROVIDERS: PCP Internal Medicine; Visit Provider Orthopaedic Surgery
DX: M25.532 Pain in left wrist (principal)
CPT/HCPCS: 99203

== ENCOUNTER 2023-10-25 14:24 | Outpatient (AMB) | payer MEDICARE, SELFPAY ==
[2023-10-25 14:27] VITALS: BP 120/70; PULSE 77; BMI 35.9
--- NOTE | 2023-10-25 14:27 | MHC.OFFVIS ---
Intake Vital Signs 10/25/23 14:27 Height 5 ft 9 in Weight 242 lb 15.19 oz BMI 35.9 BP 120/70 Blood Pressure Location Lt brachial Position Sitting Pulse 77 Pulse Source Pulse Oximeter Intake Visit Reasons: 5 mth f/up Intake Note: 5 mnth f/up pt its feeling good Automatic Vulcanizing Operator Required: No Accompanied by: Self / Same As Patient Allergies No Known Allergies Allergy (Verified 08/24/23 11:26) Medication List - Last Reconciled 10/25/23 by Husam Barnes MD aspirin 81 mg PO DAILY atorvastatin 80 mg PO BEDTIME 90 days clopidogrel (Plavix) 75 mg PO DAILY ezetimibe 10 mg PO DAILY fluorouracil 5% appl topical BID furosemide (Lasix) 20 mg PO DAILY glyburide 10 mg PO BID hydrochlorothiazide 50 mg PO DAILY isosorbide mononitrate ER 30 mg PO DAILY lisinopril 20 mg PO BID metformin 1,000 mg PO BID metoprolol succinate ER 200 mg PO DAILY nifedipine ER 90 mg PO DAILY prednisone 40 mg (2 x 20 mg) PO DAILY HPI HPI Comments History of Present Illness Details Pleasant 73-year-old gentleman here for follow-up. He has background history of coronary artery disease for which he underwent RCA PCI in the past he had moderate LAD disease which was medically managed. He has not complained of any symptoms since the RCA PCI. 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 He had a hypertensive response to exercise during the stress test but did not have any ischemic EKG changes or chest discomfort. He was able to exercise to a maximum workload of 6.4 metabolic equivalents. On follow-up today he has no new complaints. His blood pressure is 140/62. He has been taking medications regularly. He is currently taking hydrochlorothiazide 50 mg daily, lisinopril 20 mg twice a day, metoprolol succinate 200 mg daily and nifedipine extended release 90 mg daily. Denying any chest discomfort shortness of breath. Does not take extra salt in diet. Does not drink alcohol. Not on any NSAIDs. 01/13/23: On follow-up today he has significant peripheral edema. He is saying his legs are swollen all the time. Denying any orthopnea or PND. Saying his breathing is at his baseline. We discussed and added low-dose Lasix 20 mg once a day. He was advised to get repeat blood workup as well as BNP. It appears he did not have any blood workup. 05/19/23: He returns for follow-up. He still has lower extremity edema. He is denying any chest pain or shortness of breath. Taking medications regularly. Blood pressure control is reasonable. 10/25/2023: He returns for follow-up. He has been doing well. No chest discomfort or shortness of breath. 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 Blood pressure control is good. [facility] Surgical History History of cardiac cath Family History Mother No problems noted. Father No problems noted. 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 Review of Systems Const Reports chills, Reports fatigue, Reports fever(s), Reports frequent falls, Reports weakness, Reports weight gain and Reports weight loss ENT Reports dizziness Card Reports chest pain, Reports leg edema, Reports lightheadedness, Reports palpitations, Reports dyspnea and Reports dyspnea on exertion Resp Reports cough, Reports dyspnea and Reports dyspnea on exertion GI Reports hematochezia Musc Reports abnormal gait, Reports muscle weakness, Reports numbness, Reports radiating pain into limb and Reports tingling Neuro Reports abnormal gait, Reports dizziness, Reports frequent falls, Reports numbness, Reports tingling and Reports weakness Endo Reports fatigue and Reports palpitations Physical Exam Vital Signs: Last Vital Signs Pulse 77 10/25/23 14:27 BP 120/70 10/25/23 14:27 BMI result Body Mass Index 35.9 GENERAL APPEARANCE: in no acute distress, pleasant. NECK: no carotid bruit, no jugular venous distention. SKIN: no suspicious lesions, warm and dry. HEART: no murmurs, regular rate and rhythm. LUNGS: clear to auscultation bilaterally. ABDOMEN: soft, nontender. EXTREMITIES: 1+ edema. PERIPHERAL PULSES: equal. NEUROLOGIC: No gross deficits, AAO X 3 Assessment & Plan Assessment & Plan (1) Peripheral edema: Code(s): R60.9 - Edema, unspecified (2) Essential hypertension: Code(s): I10 - Essential (primary) hypertension (3) Stable angina: Code(s): I20.89 - Other forms of angina pectoris Plan Pleasant 73 gentleman is here for follow-up. He has stable angina. Clinically stable. Advised him to stop the aspirin and take Plavix monotherapy. Blood pressure control is good. He has peripheral edema due to nifedipine. Clinically not in heart failure. He will see us back in 6 months. Thank you for allowing me to participate in the care of your patient. Please feel free to contact me if you have any questions. Coding Level of Care Code Est Pt Level 4 (21331) Diagnoses Peripheral edema R60.9 Essential hypertension I10 Stable angina I20.89
== END 2023-10-25 14:41 | disposition home or self-care (01) ==
PROVIDERS: PCP Internal Medicine; Visit Provider Internal Medicine Cardiovascular Disease
DX: R60.9 Edema, unspecified (principal); I10 Essential (primary) hypertension; I20.89 Other forms of angina pectoris
CPT/HCPCS: 99214

== ENCOUNTER → 2023-10-25 14:24 | Outpatient (BNVA) | payer MEDICARE, SELFPAY | PROVIDERS: PCP Internal Medicine; Visit Provider Internal Medicine Cardiovascular Disease | DX: I20.89 Other forms of angina pectoris (principal); I10 Essential (primary) hypertension; R60.9 Edema, unspecified; Z79.82 Long term (current) use of aspirin | CPT/HCPCS: 99212 ==

== ENCOUNTER 2024-04-22 09:05 | Emergency (ER) | payer MEDICARE, SELFPAY ==
--- NOTE | ~2024-04-22 | US_ITS ---
EXAMINATION: US VENOUS WITH DOPPLER UPPER EXTREMITY, RIGHT CLINICAL INFORMATION: Pain and swelling. COMPARISON: None available. TECHNIQUE: Ultrasound of the upper extremity is performed using compression sonography and color and pulse Doppler flow with assessment of augmentation of flow. There is also imaging and Doppler assessment of the jugular and subclavian veins. Spectral analysis with color-flow imaging is performed. FINDINGS: Respiratory variation, normal compression, and augmented flow are noted throughout the upper extremity including the axillary, brachial, cubital, and radial and ulnar veins. There is normal flow in the internal jugular and subclavian veins. There is no visible deep or superficial thrombophlebitis. In the lateral soft tissues of the right proximal upper extremity, there is a 5.2 x 1 x 1 cm well-defined, reniform structure with a central fatty hilum most suggestive of a lymph node. If the patient's symptoms progress, a followup ultrasound in 5 -7 days might be of value to exclude proximal propagation from a nonvisualized distal arm vein. US/US venous duplex UE RT IMPRESSION: 1. No DVT demonstrated in the right upper extremity. 2. Prominent nonaggressive appearing lymph node in the lateral aspect of the proximal right upper extremity; recommend correlation with physical examination and out of precaution follow-up with targeted short-term ultrasound.
--- NOTE | ~2024-04-22 | XR_ITS ---
X-RAY RIGHT CLAVICLE AND RIGHT SHOULDER CLINICAL HISTORY: Pain. COMPARISON: No relevant prior studies are available for comparison. TECHNIQUE: 1 view of the right clavicle and 4 views of the right shoulder. FINDINGS: No acute fracture or subluxation. Moderate degenerative osteoarthritis of the acromioclavicular and glenohumeral joints. No unusual soft tissue calcifications. Included portion of the right-sided ribs and right lung are within normal limits. XR/XR clavicle RT IMPRESSION: No acute fracture or subluxation. Moderate degenerative osteoarthritis.
--- NOTE | ~2024-04-22 | XR_ITS ---
X-RAY RIGHT CLAVICLE AND RIGHT SHOULDER CLINICAL HISTORY: Pain. COMPARISON: No relevant prior studies are available for comparison. TECHNIQUE: 1 view of the right clavicle and 4 views of the right shoulder. FINDINGS: No acute fracture or subluxation. Moderate degenerative osteoarthritis of the acromioclavicular and glenohumeral joints. No unusual soft tissue calcifications. Included portion of the right-sided ribs and right lung are within normal limits. XR/XR shoulder RT min 2V IMPRESSION: No acute fracture or subluxation. Moderate degenerative osteoarthritis.
[2024-04-22 09:08] VITALS: BP 150/60; PULSE 85; RESP 18; TEMP 36.6; O2SAT 94; BMI 36.9
--- NOTE | 2024-04-22 09:37 | ECG_ITS ---
Test Reason : R SHOULDER PAIN Blood Pressure : / mmHG Vent. Rate : 082 BPM Atrial Rate : 082 BPM P-R Int : 288 ms QRS Dur : 100 ms QT Int : 352 ms P-R-T Axes : 037 014 043 degrees QTc Int : 411 ms Sinus rhythm with 1st degree A-V block Otherwise normal ECG No previous ECGs available Referred By: Richa Luz Electronically Signed By:SIVA PILLAI
--- NOTE | 2024-04-22 09:43 | ED_ITS ---
HPI - Extremity Problem General Chief complaint: Extremity Problem Stated complaint: R arm pain, no injury Time Seen by Provider: 04/22/24 09:15 Source: patient, RN notes reviewed and old records reviewed Mode of arrival: ambulatory History of Present Illness ED Provider: Richa Luz PA-C HPI Narrative: 74-year-old male with a past medical history of CAD s/p stent placement on Plavix, HLD, HTN, peripheral edema, presenting to the ED complaining of atraumatic right shoulder pain x1 week worsening over the past few days. Reports decreased ROM secondary to pain. Denies known injury, trauma or fall/heavy lifting, numbness/tingling, chest being, shortness of breath. Reports compliance with medications MD Complaint: extremity pain Related Data Home Medications ?Medication ?Instructions ?Recorded ?Confirmed glyburide 5 mg tablet 10 mg PO BID 06/04/21 10/25/23 metformin 1,000 mg tablet 1,000 mg PO BID 06/04/21 10/25/23 metoprolol succinate 200 mg 200 mg PO DAILY 06/04/21 10/25/23 tablet,extended release 24 hr nifedipine 90 mg tablet,extended 90 mg PO DAILY 06/04/21 10/25/23 release lisinopril 20 mg tablet 20 mg PO BID 01/14/22 10/25/23 fluorouracil 5 % topical cream appl topical BID 04/16/22 10/25/23 Previous Rx's ?Medication ?Instructions ?Recorded clopidogrel 75 mg tablet (Plavix) 75 mg PO DAILY #90 tabs 01/14/21 prednisone 20 mg tablet 40 mg (2 x 20 mg) PO DAILY #10 tabs 08/13/23 hydrochlorothiazide 50 mg tablet 50 mg PO DAILY #60 tabs 08/30/23 ezetimibe 10 mg tablet 10 mg PO DAILY #90 tabs 10/11/23 furosemide 20 mg tablet (Lasix) 20 mg PO DAILY #60 tabs 10/28/23 atorvastatin 80 mg tablet 80 mg PO BEDTIME 90 days #90 tabs 01/26/24 isosorbide mononitrate 30 mg 30 mg PO DAILY #90 tabs 02/01/24 tablet,extended release 24 hr acetaminophen 500 mg tablet 500 mg PO Q6H PRN fever or pain 04/22/24 (Tylenol Extra Strength) #14 tabs cyclobenzaprine 5 mg tablet 5 mg PO Q8H PRN pain (scale score 04/22/24 7-10) 5 days #14 tabs lidocaine 5 % topical patch 1 patch topical DAILY PRN pain #30 04/22/24 (Lidoderm) ea morphine 15 mg immediate release 15 mg PO Q6H PRN pain (scale score 04/22/24 tablet 7-10) 3 days #5 tabs Allergies Allergy/AdvReac Type Severity Reaction Status Date / Time No Known Allergies Allergy Verified 04/22/24 09:08 Review of Systems Review of Systems: Constitutional: No Fever, No Chills ENT/Mouth: No Ear Pain, No Nasal Congestion, No sore throat, No Rhinorrhea, No Swallowing Difficulty Cardiovascular: No Chest Pain, No SOB Respiratory: No Cough Gastrointestinal: No Nausea, No Vomiting, No Diarrhea, No Constipation, No Abdominal pain Musculoskeletal: + joint pain, No Myalgias, + Joint Swelling Skin: No Skin Lesions, No rash Neuro: No Weakness, No Numbness, No Paresthesias Yes all other systems are reviewed and are negative Constitutional: Constitutional: Reports as per [facility] Past Medical History Attestation statement: The following information was validated with the patient. Source: old records reviewed Surgical History History of cardiac cath Family History Family History Mother No problems noted. Father No problems noted. 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 Physical Exam Vital Signs: Vital Signs: Last Vital Signs Temp 97.9 F 04/22/24 09:08 Pulse 85 04/22/24 09:08 Resp 18 04/22/24 09:08 BP 150/60 H 04/22/24 09:08 Pulse Ox 94 04/22/24 09:08 O2 Del Method Room Air 04/22/24 09:08 BMI result Body Mass Index 36.9 Const: General: cooperative, healthy appearing and no acute distress Orientation/consciousness: patient oriented x3 Limitations: no limitations HEENT: Head: Yes normal to inspection and Yes atraumatic Ears: hearing grossly normal bilaterally General nose exam: Normal external nose present Face and sinus: Yes normal facial exam Eyes: General: appearance normal, both eyes and all related structures EOM: EOMs intact bilaterally Neck: Neck: Yes normal visual inspection and Yes no meningeal signs Resp: Effort & Inspection: normal respiratory effort and no respiratory distress Cardio: Rate: regular rate Heart sounds: S1 normal heart sound present and S2 normal heart sound present Peripheral pulses: radial pulses present Skin: Rashes: no rashes Wounds: no wounds Neuro: General: patient oriented x3, tone normal and no meningeal signs Cranial nerves: Yes CN's II-XII intact bilaterally Gait exam (Neuro): Normal gait present Extrem: Other: +RUE swelling noted. No pitting edema. No erythema/warmth or crepitus. Right shoulder/clavicle with reproducible tenderness. Decreased ROM secondary to pain. Neurovascularly intact distally. Course Course Course Narrative: XR clavicle RT/XR shoulder RT min 2V IMPRESSION: No acute fracture or subluxation. Moderate degenerative osteoarthritis. US venous duplex UE RT IMPRESSION: 1. No DVT demonstrated in the right upper extremity. 2. Prominent nonaggressive appearing lymph node in the lateral aspect of the proximal right upper extremity; recommend correlation with physical examination and out of precaution follow-up with targeted short-term ultrasound. > 1216--on re-evaluation patient reports symptomatic improvement after medications given. Results discussed with patient including worrisome signs and symptoms and strict return precautions, and when to return to the emergency department. They verbalized understanding and feel safe for discharge at this time. Medications Administered Discontinued Medications Generic Name Dose Route Start Last Admin Trade Name Gita PRN Reason Stop Dose Admin Acetaminophen 650 mg 04/22/24 11:28 04/22/24 11:48 Acetaminophen 325 Mg Tablet PO 04/22/24 11:29 650 mg ONCE ONE Administration Cyclobenzaprine HCl 5 mg 04/22/24 09:37 04/22/24 09:57 Cyclobenzaprine Hcl 5 Mg Tablet PO 04/22/24 09:38 5 mg ONCE ONE Administration Morphine Sulfate 15 mg 04/22/24 11:28 04/22/24 11:48 Morphine Sulfate Immed Release 15 Mg Tablet PO 04/22/24 11:29 15 mg ONCE ONE Administration Medical Decision Making Medical Decision Making MDM Narrative: 74-year-old male with a past medical history of CAD s/p stent placement on Plavix, HLD, HTN, peripheral edema, presenting to the ED complaining of atraumatic right shoulder pain x1 week worsening over the past few days. On exam vital signs stable, NAD, nontoxic appearing, physical exam as above with right upper extremity swelling, right shoulder/clavicular tenderness and dec reased ROM. Neurovascularly intact. Concern for arthritis vs strain vs rotator cuff injury vs DVT. No evidence of cellulitis. Compartments soft. Lower suspicion for atypical ACS or arterial compromise Plan: EKG, x-ray, venous duplex ultrasound, pain control Please refer to course for remaining clinical decision making, interpretation of labs/imaging results, and discussions with consultants and/or family members. Differential Diagnosis Differential Diagnoses: The differential diagnosis associated with the presentation includes As above Admission/Observation Consideration of admission/observation: Escalation of care including admission/observation considered Lab Data MDM Lab Attestation statement: I reviewed the patient's lab results. Independent Interpretation I performed an independent interpretation of an: EKG, Plain X-Ray and Ultrasound Radiology Impression Discussion of test interpretation with radiology: I have reviewed the radiologist's reading. External Record Review External record reviewed: Inpatient record, Office record, Outpatient record, Prior outpatient labs, Prior outpatient radiology, Primary care record and Outside ED record Tests considered The following testing was considered but not selected: As above Chronic Conditions Patient?s care impacted by: Hypertension and Other (CAD) Discharge Plan Discharge Clinical Impression: Osteoarthritis of right shoulder Patient Disposition: Home, Self-Care Instructions: Osteoarthritis (DC) Additional Instructions: X-ray show osteoarthritis of her right shoulder. You do not have a blood clot They also see an inflamed lymph node in your right upper extremity. If symptoms persist we recommend a repeat ultrasound in 5-7 days Please have close follow-up with your doctor. Flexeril is a muscle relaxer, take at night as it makes you drowsy, do not drive, drink alcohol, or operate machinery while taking it Lidoderm patches are numbing patches, apply to painful area In addition take Tylenol at home Morphine as an opiate pain medication, take only when pain is severe for the next 3 If symptoms persist or worsen, pain becomes unbearable, you developed urinary retention or incontinence, or weakness return to the ED Prescriptions: New acetaminophen [Tylenol Extra Strength] 500 mg tablet 500 mg PO Q6H PRN (Reason: fever or pain) Qty: 14 0RF lidocaine [Lidoderm] 5 % adhesive patch,medicated 1 patch topical DAILY MDD remove after 12 hours PRN (Reason: pain) Qty: 30 0RF Rx Instructions: leave on most painful area for up to 12 hrs cyclobenzaprine 5 mg tablet 5 mg PO Q8H PRN (Reason: pain (scale score 7-10)) 5 Days Qty: 14 0RF morphine 15 mg tablet 15 mg PO Q6H PRN (Reason: pain (scale score 7-10)) 3 Days Qty: 5 0RF Rx Instructions: Partial Fill upon patient request. No Action clopidogrel [Plavix] 75 mg tablet 75 mg PO DAILY Qty: 90 1RF hydrochlorothiazide 50 mg tablet 50 mg PO DAILY Qty: 60 6RF ezetimibe 10 mg tablet 10 mg PO DAILY Qty: 90 3RF furosemide [Lasix] 20 mg tablet 20 mg PO DAILY Qty: 60 6RF atorvastatin 80 mg tablet 80 mg PO BEDTIME 90 Days Qty: 90 3RF isosorbide mononitrate 30 mg tablet extended release 24 hr 30 mg PO DAILY Qty: 90 3RF prednisone 20 mg tablet 40 mg PO DAILY Qty: 10 0RF Rx Instructions: Monitor your blood sugars while taking this medication. glyburide 5 mg tablet 10 mg PO BID metoprolol succinate 200 mg tablet extended release 24 hr 200 mg PO DAILY nifedipine 90 mg tablet extended release 90 mg PO DAILY metformin 1,000 mg tablet 1,000 mg PO BID lisinopril 20 mg tablet 20 mg PO BID fluorouracil 5 % cream topical BID Referrals: [facility] [place] [facility] [Provider Group] Ash Tucker MD [Primary Care Provider] - 3 days Print Language: Bengali
[2024-04-22] MEDS: Cyclobenzaprine HCl 5 MG TABLET PO (09:57)
[2024-04-22] MEDS: Acetaminophen 325 MG TABLET 650 MG PO (11:48)
[2024-04-22] MEDS: Morphine Sulfate Immed Release 15 MG TABLET PO (11:48)
[2024-04-22 12:51] VITALS: BP 127/56; PULSE 80; RESP 16; TEMP 37; O2SAT 92
== END 2024-04-22 12:45 | disposition home or self-care (01) ==
PROVIDERS: Emergency Provider Emergency Medicine Emergency Medical Services; PCP Internal Medicine
DX: M19.011 Primary osteoarthritis, right shoulder (principal); M25.511 Pain in right shoulder; M79.601 Pain in right arm; R60.9 Edema, unspecified; I10 Essential (primary) hypertension; E78.5 Hyperlipidemia, unspecified; Z79.02 Long term (current) use of antithrombotics/antiplatelets; Z79.899 Other long term (current) drug therapy
CPT/HCPCS: 73000; 73030; 93005; 93971; 99284

== ENCOUNTER → 2024-04-22 09:37 | Outpatient (BNV) | payer MEDICARE, SELFPAY | PROVIDERS: Emergency Provider Emergency Medicine Emergency Medical Services; PCP Internal Medicine; Visit Provider Internal Medicine | DX: I44.0 Atrioventricular block, first degree (principal) | CPT/HCPCS: 93010 ==

== ENCOUNTER 2024-05-03 15:41 | Outpatient (AMB) | payer MEDICARE, SELFPAY ==
[2024-05-03 15:58] VITALS: BP 110/60; PULSE 78; BMI 33.9
--- NOTE | 2024-05-03 15:58 | A.OFFVIS_ITS ---
Vital Signs 05/03/24 15:58 Height 5 ft 9 in Weight 229 lb 11.547 oz BMI 33.9 BP 110/60 Blood Pressure Location Lt brachial Position Sitting Pulse 78 Pulse Source Pulse Oximeter Intake Visit Reasons: 6 month follow up [employer] Required: No Accompanied by: Self / Same As Patient Allergies No Known Allergies Allergy (Verified 04/22/24 09:08) Medication List - Last Reconciled 05/03/24 by Husam Barnes MD acetaminophen (Tylenol Extra Strength) 500 mg PO Q6H PRN atorvastatin 80 mg PO BEDTIME 90 days clopidogrel (Plavix) 75 mg PO DAILY cyclobenzaprine 5 mg PO Q8H PRN 5 days ezetimibe 10 mg PO DAILY fluorouracil 5% appl topical BID furosemide (Lasix) 20 mg PO DAILY glyburide 10 mg PO BID hydrochlorothiazide 50 mg PO DAILY isosorbide mononitrate ER 30 mg PO DAILY lidocaine 5% (Lidoderm) 1 patch topical DAILY PRN MDD remove after 12 hours lisinopril 20 mg PO BID metformin 1,000 mg PO BID metoprolol succinate ER 200 mg PO DAILY morphine 15 mg PO Q6H PRN 3 days nifedipine ER 90 mg PO DAILY prednisone 40 mg (2 x 20 mg) PO DAILY HPI Comments Details: Pleasant 74-year-old gentleman here for follow-up. He has background history of coronary artery disease for which he underwent RCA PCI in the past he had moderate LAD disease which was medically managed. He has not complained of any symptoms since the RCA PCI. 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 He had a hypertensive response to exercise during the stress test but did not have any ischemic EKG changes or chest discomfort. He was able to exercise to a maximum workload of 6.4 metabolic equivalents. On follow-up today he has no new complaints. His blood pressure is 140/62. He has been taking medications regularly. He is currently taking hydrochlorothiazide 50 mg daily, lisinopril 20 mg twice a day, metoprolol succinate 200 mg daily and nifedipine extended release 90 mg daily. Denying any chest discomfort shortness of breath. Does not take extra salt in diet. Does not drink alcohol. Not on any NSAIDs. 01/13/23: On follow-up today he has significant peripheral edema. He is saying his legs are swollen all the time. Denying any orthopnea or PND. Saying his breathing is at his baseline. We discussed and added low-dose Lasix 20 mg once a day. He was advised to get repeat blood workup as well as BNP. It appears he did not have any blood workup. 05/19/23: He returns for follow-up. He still has lower extremity edema. He is denying any chest pain or shortness of breath. Taking medications regularly. Blood pressure control is reasonable. 10/25/2023: He returns for follow-up. He has been doing well. No chest discomfort or shortness of breath. 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 Blood pressure control is good. 05/03/24: He is here for follow-up. He has been doing well. No chest pain or shortness of breath. Taking medication regularly. [facility] Surgical History History of cardiac cath Family History Mother No problems noted. Father No problems noted. 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 Review of Systems Const Denies chills, Denies fatigue, Denies fever(s), Denies frequent falls, Denies weakness, Denies weight gain and Denies weight loss ENT Denies dizziness Card Denies chest pain, Denies leg edema, Denies lightheadedness, Denies palpitations, Denies dyspnea and Denies dyspnea on exertion Resp Denies cough, Denies dyspnea and Denies dyspnea on exertion GI Denies hematochezia Musc Denies abnormal gait, Denies muscle weakness, Denies numbness, Denies radiating pain into limb and Denies tingling Neuro Denies abnormal gait, Denies dizziness, Denies frequent falls, Denies numbness, Denies tingling and Denies weakness Endo Denies fatigue and Denies palpitations Physical Exam Vital Signs: Last Vital Signs Pulse 78 05/03/24 15:58 BP 110/60 05/03/24 15:58 BMI result Body Mass Index 33.9 GENERAL APPEARANCE: in no acute distress, pleasant. NECK: no carotid bruit, no jugular venous distention. SKIN: no suspicious lesions, warm and dry. HEART: no murmurs, regular rate and rhythm. LUNGS: clear to auscultation bilaterally. ABDOMEN: soft, nontender. EXTREMITIES: 1+ edema. PERIPHERAL PULSES: equal. NEUROLOGIC: No gross deficits, AAO X 3 Assessment & Plan Assessment & Plan (1) Peripheral edema: Code(s): R60.9 - Edema, unspecified Category: Medical (2) Essential hypertension: Code(s): I10 - Essential (primary) hypertension Category: Medical (3) Stable angina: Code(s): I20.89 - Other forms of angina pectoris Category: Medical Plan Pleasant 74 gentleman is here for follow-up. He has stable angina. Clinically stable. He is currently taking Plavix monotherapy. Blood pressure control is good. He has peripheral edema due to nifedipine. Clinically not in heart failure. He will see us back in 6 months. Thank you for allowing me to participate in the care of your patient. Please feel free to contact me if you have any questions. Coding Level of Care Code Est Pt Level 4 (09668) Diagnoses Peripheral edema R60.9 Essential hypertension I10 Stable angina I20.89
== END 2024-05-03 16:21 | disposition home or self-care (01) ==
PROVIDERS: PCP Internal Medicine; Visit Provider Internal Medicine Cardiovascular Disease
DX: R60.9 Edema, unspecified (principal); I10 Essential (primary) hypertension; I20.89 Other forms of angina pectoris
CPT/HCPCS: 99214

== ENCOUNTER → 2024-05-03 15:41 | Outpatient (BNVA) | payer MEDICARE, SELFPAY | PROVIDERS: PCP Internal Medicine; Visit Provider Internal Medicine Cardiovascular Disease | DX: I10 Essential (primary) hypertension (principal); I20.89 Other forms of angina pectoris; R60.9 Edema, unspecified | CPT/HCPCS: 99212 ==

== ENCOUNTER 2024-05-13 10:00 | Outpatient (REF) | payer MEDICARE, SELFPAY ==
[2024-05-13 10:25] LABS: MANUAL DIFF FLAG NO
[2024-05-13 10:49] LABS: Basophils Absolute Auto 0.1 X10*3/uL (0.0-0.2); Basophils Percent Auto 0.4 % (0-2); Hematocrit 35.7 % (42.0-52.0); Hemoglobin 11.5 g/dl (14.0-18.0); Imm Gran Abs Auto 0.08 X10*3/uL (0.00-0.03); Imm Gran Pct Auto 0.6 % (0.0-0.4); Lymphocytes Absolute Auto 1.5 X10*3/uL (1.2-4.9); Lymphocytes Percent Auto 10.9 % (20-40); Mean Corpuscular HGB Conc 32.2 g/dl (31.0-36.0); Mean Corpuscular Hemoglobin 29.2 pg (27.0-33.0); Mean Corpuscular Volume 90.6 fL (80.0-98.0); Mean Platelet Volume 9.9 fL (9.4-12.4); Monocytes Absolute Auto 1.2 X10*3/uL (0.1-1.2); Neutrophils Absolute Auto 10.8 x10*3/uL (2.0-8.3); Neutrophils Percent Auto 79.1 % (45-73); Platelet Count 424 X10*3/uL (160-400); Red Blood Count 3.94 X10*6/uL (4.60-5.80); Red Cell Distribution Width 14.5 % (11.0-16.0); White Blood Count 13.7 X10*3/uL (4.8-10.8)
[2024-05-13 10:57] LABS: Estimated Average Glucose 134 mg/dL; Hemoglobin A1c % 6.3 % (<6.0)
[2024-05-13 11:21] LABS: Alanine Aminotransferase 28 U/L (0-40); Albumin Level 3.8 g/dL (3.5-5.0); Alkaline Phosphatase 99 U/L (39-117); Anion Gap 16 (12-20); Aspartate Amino Transferase 20 U/L (5-37); Bilirubin Total 0.5 mg/dL (0.0-1.0); Blood Urea Nitrogen 53 mg/dL (9-16); Calcium 9.6 mg/dL (8.4-10.2); Carbon Dioxide 25 mmol/L (22-29); Chloride 105 mmol/L (96-108); Cholesterol 115 mg/dL (<200); Estimated Glomerular Filt Rate 37; HDL Cholesterol 33 mg/dL (>40); LDL Cholesterol Calculated 61 mg/dL (<100); Potassium 5.4 mmol/L (3.3-5.1); Sodium 141 mmol/L (135-145); Total Protein 7.1 g/dL (6.5-8.0); Triglycerides 109 mg/dL (<150)
[2024-05-13 11:33] LABS: Glucose Fasting 53 mg/dL (60-99)
[2024-05-13 11:40] LABS: Prostate Specific Antigen Scr 1.16 ng/mL (<0.05-4.0)
== END 2024-05-13 10:01 | disposition home or self-care (01) ==
LOC: HO.LAB 10:00
PROVIDERS: PCP Internal Medicine; Visit Provider Internal Medicine
DX: E11.9 Type 2 diabetes mellitus without complications (principal); Z12.5 Encounter for screening for malignant neoplasm of prostate; E78.5 Hyperlipidemia, unspecified
CPT/HCPCS: 36415; 80053; 80061; 83036; 84153; 85025

== ENCOUNTER 2024-05-18 11:22 | Outpatient (AMB) | payer MEDICARE, SELFPAY ==
--- NOTE | 2024-05-18 12:08 | MHC.OFFVIS ---
Vital Signs 05/18/24 12:11 Height 5 ft 9 in Weight 229 lb BMI 33.8 Intake Visit Reasons: New prob- RT shoulder OA Intake Note: Juan Antonio is a 74 year old right hand dominant male who presents today with complaints of right shoulder pain. Patient reports that he has had right shoulder pain ongoing for about three weeks now. Denies numbness & tingling. Denies injury & any previous treatment Allergies No Known Allergies Allergy (Verified 04/22/24 09:08) HPI HPI New prob- RT shoulder OA: Details: Juan Antonio presents with right shoulder pain for ~ 1 month. He denies injury. States he is active and uses his hand regularly. He has difficulty sleeping and with overhead activity. [facility] Surgical History History of cardiac cath Family History Mother No problems noted. Father No problems noted. 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 Physical Exam Vital Signs: BMI result Body Mass Index 33.8 Const General: cooperative, healthy appearing, no acute distress and well groomed Orientation/consciousness: oriented to person and oriented to place HEENT Head: Yes normal to inspection, Yes normocephalic and Yes atraumatic Eyes General: appearance normal, both eyes and all related structures Alignment and Position: alignment normal Conjunctivae: conjunctivae normal EOM: EOMs intact bilaterally Neck Neck: Yes normal visual inspection and Yes trachea midline Resp Other: No rerpiratory distress Effort & Inspection: normal respiratory effort and able to speak in complete sentences GI Other: No abdominal distension Back/Spine/Pelvis Cervical Spine: normal cervical lordosis and cervical ROM normal Skin General skin exam: no rashes or lesions noted Neuro General: oriented to person, oriented to place and gait normal Extrem Other: SRight hsoulder: 20/80/130/HP Pain with JOSE Office Procedures Joint Injection/Drain Joint Injection/Drain Details: Injected 1 mL of Decadron and 3 mL 1% lidocaine and 3 mL of 0.25% Marcaine. Site was prepped using aseptic technique. Patient tolerated the procedure well. Primary Site: right shoulder (GH) Approach Used: posterolateral Coding - Large joint Procedure code (CPT) selection complete Results Reviewed Results Reviewed: I personally reviewed relevant radiographs. Right shoulder Moderate GH OA Assessment & Plan Assessment & Plan (1) Osteoarthritis of glenohumeral joint: Code(s): M19.019 - Primary osteoarthritis, unspecified shoulder Category: Medical Plan: This is a 74 yo with right GH OA but pain only for a few weeks. I discussed his diagnosis and treatment options. Surgery not appropriate nor desired by patient. I injected GH joint. f/u as needed. Coding Level of Care Code New Pt Level 3 (70744) Diagnoses Osteoarthritis of glenohumeral joint M19.019 CPT Codes Coding - Large joint: 15840 - Large joint ([id number])
[2024-05-18 12:11] VITALS: BMI 33.8
== END 2024-05-18 12:25 | disposition home or self-care (01) ==
PROVIDERS: PCP Internal Medicine; Visit Provider Orthopaedic Surgery
DX: M19.011 Primary osteoarthritis, right shoulder (principal)
CPT/HCPCS: 20610; 99203

== ENCOUNTER → 2024-05-18 11:22 | Outpatient (BNVA) | payer MEDICARE, SELFPAY ==
--- NOTE | 2024-06-01 15:52 | P.CONNP_ITS ---
History of Present Illness Reason for Consult Consult date: 06/01/24 Reason for consult: CKD 3 Chief Complaint Chief complaint: New prob- RT shoulder OA History of Present Illness Narrative: RTANE consulted for eval and Tx of CKD 3 in setting of DM/HTN Full consult avail in ofice TText me if need to discuss renal issues PMFSH Family History Family History Mother No problems noted. Father No problems noted. 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 Meds Allergies Allergy/AdvReac Type Severity Reaction Status Date / Time No Known Allergies Allergy Verified 04/22/24 09:08 Home Medications ?Medication ?Instructions ?Recorded ?Confirmed ?Last Taken ?Type glyburide 5 mg tablet 10 mg PO BID 06/04/21 05/03/24 Unknown History metformin 1,000 mg tablet 1,000 mg PO BID 06/04/21 05/03/24 Unknown History metoprolol succinate 200 mg 200 mg PO DAILY 06/04/21 05/03/24 Unknown History tablet,extended release 24 hr nifedipine 90 mg tablet,extended 90 mg PO DAILY 06/04/21 05/03/24 Unknown History release lisinopril 20 mg tablet 20 mg PO BID 01/14/22 05/03/24 Unknown History fluorouracil 5 % topical cream appl topical BID 04/16/22 05/03/24 Unknown History Procedures Date of Service Date of Service: 06/01/24
== END ==
PROVIDERS: PCP Internal Medicine; Visit Provider Orthopaedic Surgery
DX: M19.011 Primary osteoarthritis, right shoulder (principal)
CPT/HCPCS: 20610; 99202; J0665; J1100

== ENCOUNTER 2024-06-03 10:04 | Outpatient (REF) | payer MEDICARE, SELFPAY ==
[2024-06-03 10:18] LABS: MANUAL DIFF FLAG NO
[2024-06-03 11:14] LABS: Basophils Absolute Auto 0.1 X10*3/uL (0.0-0.2); Basophils Percent Auto 0.5 % (0-2); Hematocrit 35.4 % (42.0-52.0); Hemoglobin 11.3 g/dl (14.0-18.0); Imm Gran Abs Auto 0.06 X10*3/uL (0.00-0.03); Imm Gran Pct Auto 0.5 % (0.0-0.4); Lymphocytes Absolute Auto 1.9 X10*3/uL (1.2-4.9); Lymphocytes Percent Auto 14.7 % (20-40); Mean Corpuscular HGB Conc 31.9 g/dl (31.0-36.0); Mean Corpuscular Hemoglobin 28.9 pg (27.0-33.0); Mean Corpuscular Volume 90.5 fL (80.0-98.0); Mean Platelet Volume 9.6 fL (9.4-12.4); Monocytes Absolute Auto 1.4 X10*3/uL (0.1-1.2); Monocytes Percent Auto 10.6 % (2-11); Neutrophils Absolute Auto 9.4 x10*3/uL (2.0-8.3); Neutrophils Percent Auto 73.7 % (45-73); Platelet Count 424 X10*3/uL (160-400); Red Blood Count 3.91 X10*6/uL (4.60-5.80); Red Cell Distribution Width 14.5 % (11.0-16.0); White Blood Count 12.8 X10*3/uL (4.8-10.8)
[2024-06-03 12:01] LABS: Parathyroid Hormone Intact 69.5 pg/mL (8.7-77.1)
[2024-06-03 12:15] LABS: Albumin Level 3.9 g/dL (3.5-5.0); Anion Gap 16 (12-20); Blood Urea Nitrogen 45 mg/dL (9-16); Calcium 9.7 mg/dL (8.4-10.2); Carbon Dioxide 25 mmol/L (22-29); Chloride 103 mmol/L (96-108); Estimated Glomerular Filt Rate 43; Magnesium 2.2 mg/dL (1.6-2.6); Phosphorus 3.3 mg/dL (2.7-4.5); Potassium 5.4 mmol/L (3.3-5.1); Sodium 139 mmol/L (135-145); Vitamin D 25-OH Total 26.8 ng/mL (>30)
== END 2024-06-03 10:05 | disposition home or self-care (01) ==
LOC: HO.LAB 10:04
PROVIDERS: PCP Internal Medicine; Visit Provider Internal Medicine Nephrology
DX: E11.22 Type 2 diabetes mellitus with diabetic chronic kidney disease (principal); N18.32 Chronic kidney disease, stage 3b; N25.0 Renal osteodystrophy
CPT/HCPCS: 36415; 80051; 82040; 82306; 82310; 82565; 83735; 83970; 84100; 84520; 85025

== ENCOUNTER 2024-11-27 14:04 | Outpatient (AMB) | payer MEDICARE, SELFPAY ==
[2024-11-27 14:11] VITALS: BP 120/58; PULSE 72; BMI 34.4
--- NOTE | 2024-11-27 14:11 | A.OFFVIS_ITS ---
Vital Signs 11/27/24 14:11 Height 5 ft 9 in Weight 233 lb 3.985 oz BMI 34.4 BP 120/58 L Blood Pressure Location Lt brachial Position Sitting Pulse 72 Pulse Source Pulse Oximeter Intake Visit Reasons: 6 mth f/up Intake Note: 6 mth f/up Host Hostess Required: No Accompanied by: Self / Same As Patient Allergies No Known Allergies Allergy (Verified 04/22/24 09:08) HPI Comments Details: Pleasant 74-year-old gentleman here for follow-up. He has background history of coronary artery disease for which he underwent RCA PCI in the past he had moderate LAD disease which was medically managed. He has not complained of any symptoms since the RCA PCI. 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 He had a hypertensive response to exercise during the stress test but did not have any ischemic EKG changes or chest discomfort. He was able to exercise to a maximum workload of 6.4 metabolic equivalents. On follow-up today he has no new complaints. His blood pressure is 140/62. He has been taking medications regularly. He is currently taking hydrochlorothiazide 50 mg daily, lisinopril 20 mg twice a day, metoprolol succinate 200 mg daily and nifedipine extended release 90 mg daily. Denying any chest discomfort shortness of breath. Does not take extra salt in diet. Does not drink alcohol. Not on any NSAIDs. 01/13/23: On follow-up today he has significant peripheral edema. He is saying his legs are swollen all the time. Denying any orthopnea or PND. Saying his breathing is at his baseline. We discussed and added low-dose Lasix 20 mg once a day. He was advised to get repeat blood workup as well as BNP. It appears he did not have any blood workup. 05/19/23: He returns for follow-up. He still has lower extremity edema. He is denying any chest pain or shortness of breath. Taking medications regularly. Blood pressure control is reasonable. 10/25/2023: He returns for follow-up. He has been doing well. No chest discomfort or shortness of breath. 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 Blood pressure control is good. 05/03/24: He is here for follow-up. He has been doing well. No chest pain or shortness of breath. Taking medication regularly. 11/27/2024: He is here for follow-up. He is denying any chest discomfort shortness of breath. Continues to work as a tier lift truck operator. He is asking for a note from us that he can continue to drive. He had a stress test done in January of 2022 when he was cleared to drive truck. 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 [facility] Surgical History History of cardiac cath Family History Mother No problems noted. Father No problems noted. 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 Review of Systems Const Denies chills, Denies fatigue, Denies fever(s), Denies frequent falls, Denies weakness, Denies weight gain and Denies weight loss ENT Denies dizziness Card Denies chest pain, Denies leg edema, Denies lightheadedness, Denies palpitations, Denies dyspnea and Denies dyspnea on exertion Resp Denies cough, Denies dyspnea and Denies dyspnea on exertion GI Denies hematochezia Musc Denies abnormal gait, Denies muscle weakness, Denies numbness, Denies radiating pain into limb and Denies tingling Neuro Denies abnormal gait, Denies dizziness, Denies frequent falls, Denies numbness, Denies tingling and Denies weakness Endo Denies fatigue and Denies palpitations Physical Exam Vital Signs: Last Vital Signs Pulse 72 11/27/24 14:11 BP 120/58 L 11/27/24 14:11 BMI result Body Mass Index 34.4 GENERAL APPEARANCE: in no acute distress, pleasant. NECK: no carotid bruit, no jugular venous distention. SKIN: no suspicious lesions, warm and dry. HEART: no murmurs, regular rate and rhythm. LUNGS: clear to auscultation bilaterally. ABDOMEN: soft, nontender. EXTREMITIES: Mild edema. PERIPHERAL PULSES: equal. NEUROLOGIC: No gross deficits, AAO X 3 Assessment & Plan Assessment & Plan (1) Peripheral edema: Code(s): R60.9 - Edema, unspecified Category: Medical (2) Essential hypertension: Code(s): I10 - Essential (primary) hypertension Category: Medical (3) Stable angina: Code(s): I20.89 - Other forms of angina pectoris Category: Medical Plan Pleasant 74 gentleman is here for follow-up. He has stable angina. Clinically stable. He is currently taking Plavix monotherapy. Blood pressure control is good. He has peripheral edema due to nifedipine. Clinically not in heart failure. He has no exertional symptoms and can continue to drive truck. He did stress testing in January of 2022. If DOT requires new stress testing then he will reach out to us. He will see us back in 4 months. Thank you for allowing me to participate in the care of your patient. Please feel free to contact me if you have any questions. Coding Level of Care Code Est Pt Level 4 (38338) Diagnoses Peripheral edema R60.9 Essential hypertension I10 Stable angina I20.89
== END 2024-11-27 14:35 | disposition home or self-care (01) ==
PROVIDERS: PCP Internal Medicine; Visit Provider Internal Medicine Cardiovascular Disease
DX: R60.9 Edema, unspecified (principal); I10 Essential (primary) hypertension; I20.89 Other forms of angina pectoris
CPT/HCPCS: 99214

== ENCOUNTER → 2024-11-27 14:04 | Outpatient (BNVA) | payer MEDICARE, SELFPAY | PROVIDERS: PCP Internal Medicine; Visit Provider Internal Medicine Cardiovascular Disease | DX: I25.10 Atherosclerotic heart disease of native coronary artery without angina pectoris (principal); I10 Essential (primary) hypertension; R60.9 Edema, unspecified; I20.89 Other forms of angina pectoris | CPT/HCPCS: 99212 ==

== ENCOUNTER 2025-01-13 09:18 | Outpatient (REF) | payer MEDICARE, SELFPAY ==
--- OUTSIDE RECORDS SUMMARY | 2025-01-13 09:22 | XMS_ITS ---
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 Name Role Phone Ash Tucker MD Primary Care Provider Unavailab monica Birgit Sandoval Unavailable [phone] Allergies No Known Allergies REASON FOR VISIT At Risk Footcare, Painful Nail(s) aggrevated by shoes and causing difficulty standing/walking Medications Medication SIG (Take, Route, Frequency, Duration) Notes Start Date End Date Status Nifedical XL 60 MG 1 tablet Orally Once a day Active Extra Depth Orthopedic Shoes (1 Pair) with Customized Heat Molded Multidensity Innersoles (3 Pair) as directed Dx: NIDDM/Polyneuropathy (E11.42), Hammertoe Foot Deformity (M20.41,M20.42), Preulcerative Skin Lesion(s) (L85.1 01/05/2018 Active Cephalexin 500 MG TAKE ONE CAPSULE BY MOUTH THREE TIMES A DAY Oral for 7 Not-Taking metFORMIN HCl 1000 MG 1 tablet with meal s Orally Twice a day Active Simvastatin 20 MG 1 tablet in the even ing Orally Once a day Active Atenolol 100 MG 1 tablet Orally Once a day Active Pioglitazone HCl 30 MG 1 tablet Orally O nce a day Active Lisinopril 10 MG 1 tablet Orally twic e a day Active glyBURIDE 10mg twice a day Act joon Immunizations Vaccine Route Administration Date Status Comme nts Influenza Unknown 04/28/2024 Refused Social History Tobacco Use: Social History Observation Description Date Details (start date - stop date) Never Smoker NA - NA Tobacco Use/Smoking Question Answer Notes Are you a: nonsmoker Additional Findings: Tobacco Non-User Current no n-smoker Alcohol Screen Question Answer Notes Did you have a drink containing alcohol in the p ast year? No Points 0 Interpretation Negative Tobacco use other than smoking: Question Answer Notes Are you an other tobacco user? No Vital Signs Height 5ft9in in 04/28/2024 Weight 250 lbs 04/28/2024 BMI 36.91 kg/m2 04/28/2024 Encounters Encounter Location Date Provider Diagnosis [facility] [address] [address] 04/28/2024 Birgit Sandoval Tinea unguium B35.1 ; Ingrown nail L60.0 and Type 2 diabetes mellitus with diabetic polyneuropathy E11.42 Assessments Encounter Date Diagnosis (ICD Code) Assessment Notes Treatment Notes Treatment Clinical Notes Section Notes 04/28/2024 Tinea unguium (ICD-10 - B35.1) 04/28/2024 Ingrown nail (ICD-10 - L60.0) 04/28/2024 Type 2 diabetes mellitus with diabetic polyneuropathy (ICD-10 - E11.42) Plan Of Treatment Next Appt Details Follow Up: 3 Months, Reason: Provider Name:Birgit chang, 01/19/2025 09:00:00 AM, [address] [place] [address], [id number], Procedure Notes * Category Sub-Category Detail Notes Debride Nail 6-10 Nail debridement Nail debridem ent performed extensively to reduce/remove overall nail length and girth, subungual debris, and necrotic tissue, by manual and electrical means with use of a nail nipper and/or dremel, to more viable healthy nail plate or bed tissue 6-10. Silver nitrate used for any petechial bleeding as necessary. Patient chooses, no pharmaceutical tx ([id number]) Keratoma Treatment Parring or Cutting o f Benign Hyperkeratotic Lesion(s) 26665 ( >4 Lesions) - The Benign hyperkeratotic lesions, as described above were pared, and/or cut utilizing a sterile #15 blade, tissue nippers, and/or dremel Progress Notes * Juan Antonio FERNANDESDOB:[birth year] (74 yo M)Acc No.[id number]:04/28/2024 Progress Note Patient:?Juan Antonio Fernandes Provider:?Birgit Sandoval DPM :1950???Age:74 Y???Sex:Male Tera e:04/28/2024 Address:[address] [id number] Pcp:Ash Tucker MD Subjective: * Chief Complaints: * ???At Risk FootcarePainful N ail(s) aggrevated by shoes and causing difficulty standing/walking * HPI: ???At Risk footcare:?Pt States Last PCP Visit:?Date?10/08/2023 * ROS:?General/Constitutional:?Nausea?denies, denies.?Vomiting?denies, denies.?Hunger Thirst?denies, denies.?Loss appetite?denies, denies.?Chills?denies, denies.?Fatigue?denies, denies.?Fever?denies, denies.?Night Sweats denies, denies.?Unexplained weight loss?denies, denies.?Unexplained weight gain?denies, denies.?HEENTM:?Dentures?denies, denies.?Dizziness?denies, denies.?Glasses/contacts?denies, denies.?Retinopathy?denies, denies.?Blurred/double vision?denies, denies.?TMJ?denies, denies.?Discharge/drainage?denies, denies.?Implants?denies, denies.?Sore throat?denies, denies.?Dental implants?denies, denies.?Hard of hearing ?denies, denies.?Difficulty chewing/swallowing/speaking?denies, denies.?Nose bleeds?denies, denies.?Sore mouth?denies, denies.?Respiratory:?On Oxygen?denies, denies.?Pneumonia/pleurisy?denies, denies.?Bronchitis?denies, denies.?Emphysema?denies, denies.?Coughing?denies, denies.?Cough blood?denies, denies.?Shortness of breath?denies, denies.?Wheezing?denies, denies.?Cardiovascular:?Pacemaker?denies, denies.?MVP?denies, denies.?WPW?denies, denies.?CHF?denies, denies.?Heart attack?denies, denies.?Septal defect?denies, denies.?Rapid beat?denies, denies.?Chest pain ?denies, denies.?Atrial Fib.?denies, denies.?Murmur/Palpitations?denies, denies.?Gastrointestinal:?Hemorrhoids?denies, denies.?Stomach/Abdominal pain?denies, denies.?Dark blood stool?denies, denies.?Irritable bowel ?denies, denies.?Constipation?denies, denies.?Diarrhea?denies, denies.?Hematology:?Swelling?admits, admits.?Clots?denies, denies.?Varicose Veins?denies, denies.?Bruising?denies, denies.?Bleeding problem?denies, denies.?Genitourinary:?Blood urine?denies, denies.?Frequent/Painfu/urination/bladder control?denies, denies.?Kidney stones?denies, denies.?Infection (UTI)?denies, denies.?Nephropathy?denies, denies.?sex trans dis (STD)?denies, denies.?Prostate?denies, denies.?Musculoskeletal:?Hammertoes?denies, denies.?Bunions?denies, denies.?Back Pain?denies, denies.?Muscle Cramps/ Resting?denies, denies.?Muscle cramps / walking?denies, denies.?Generalized aches and pains?admits, admits.?Weakness?denies, denies.?Integ.:?Nicholson?denies, denies.?Scars?denies, denies.?Corns/calluses?denies, denies.?Ingrown nails?admits, admits.?Painful nails?denies, denies.?Open Sores?denies, denies.?Rashes?denies, denies.?Neurologic:?Difficulty sleeping?denies, denies.?Brain disorder?denies, denies.?Numbness?denies, denies.?Balance trouble?denies, denies.?Confusion?denies, denies.?Fainting/blackouts?denies, denies.?Tingling?denies, denies.?Tremors?denies, denies.? * Medical History:? * Surgical History:?Stent x2 p laced 05/2019 * Hospitalization/Major Diagno stic Procedure:?Denies Past Hospitalization * Family History:?Mother: dece ased, diagnosed with Unspecified essential hypertension.?Father: , diagnosed with Other malignant neoplasm of unspecified site.? * Social History:?Tobacco Use:?Tobacco Use/Smoking?Are you a:?nonsmoker ?Additional Findings: Tobacco Non-User?Current non-smoker ?Tobacco use other than smoking?Are you an other tobacco user??No ???Drugs/Alcohol:?Drugs?Have you used drugs other than those for medical reasons in the past 12 months??No ?Alcohol Screen?Did you have a drink containing alcohol in the past year??No ?Points?0 ?Interpretation?Negative ???Miscellaneous:?Caffeine: yes, frequency: Soda , 2-3 cups per day. ?no Children. ?Exercise: yes, work. ?Marital status: single. 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 * Medications:?TakingAtenolol 100 MG Tablet 1 tablet Orally Once a dayPioglitazone HCl 30 MG Tablet 1 tablet Orally Once a dayLisinopril 10 MG Tablet 1 tablet Orally twice a dayglyBURIDE 10mg twice a dayNifedical XL 60 MG Tablet Extended Release 24 Hour 1 tablet Orally Once a daymetFORMIN HCl 1000 MG Tablet 1 tablet with meals Orally Twice a daySimvastatin 20 MG Tablet 1 tablet in the evening Orally Once a dayExtra Depth Orthopedic Shoes (1 Pair) with Customized Heat Molded Multidensity Innersoles (3 Pair) as directed Dx: NIDDM/Polyneuropathy (E11.42), Hammertoe Foot Deformity (M20.41,M20.42), Preulcerative Skin Lesion(s) (L85.1Taking Atenolol 100 MG Tablet 1 tablet Orally Once a dayTaking Pioglitazone HCl 30 MG Tablet 1 tablet Orally Once a dayTaking Lisinopril 10 MG Tablet 1 tablet Orally twice a dayTaking glyBURIDE 10mg twice a dayTaking Nifedical XL 60 MG Tablet Extended Release 24 Hour 1 tablet Orally Once a dayTaking metFORMIN HCl 1000 MG Tablet 1 tablet with meals Orally Twice a dayTaking Simvastatin 20 MG Tablet 1 tablet in the evening Orally Once a dayTaking Extra Depth Orthopedic Shoes (1 Pair) with Customized Heat Molded Multidensity Innersoles (3 Pair) as directed Dx: NIDDM/Polyneuropathy (E11.42), Hammertoe Foot Deformity (M20.41,M20.42), Preulcerative Skin Lesion(s) (L85.1Not-Taking/PRNCephalexin 500 MG Capsule TAKE ONE CAPSULE BY MOUTH THREE TIMES A DAY Oral Medication List reviewed and reconciled with the patientNot-Taking/PRN Cephalexin 500 MG Capsule TAKE ONE CAPSULE BY MOUTH THREE TIMES A DAY Oral Medication List reviewed and reconciled with the patient * Allergies:?N.K.D.A.yes[Aller gies Verified] Objective: * Vitals:?Ht: 5ft9in, Wt:250, BMI:36.91, Shoe size: 11.5, BS: 86, Ht-cm: 175.26 cm, Wt-k.4 kg. * ???Past Orders: ???Lab:HEMOGLOBIN A1C (GLYCO HEMOGLOBIN) (Order Date - 10/22/2023) (Collection Date - 10/22/2023) ? Value Reference Range ?HEMOGLOBIN A1C (HH) 6.7 * Examination: ???Ophthalmology Referral: ?DIABETES EYE EXAM?Diabetic Retinopathy Screening:?Yes ?Findings of Diabetic Eye Exam:?no retinopathy?Neurological: ?SENSORY:?Neurological exam demonstrates, reduced light touch sensation, reduced sharp/dull discrimination , reduced vibration sensation, Pt relates, tingling, paresthesia, B/L.?Nails: ?NAILS are:?Elongated, overgrown, dystrophic, lytic, greater than 3mm thick, discolored and friable with crumbly malodorous subungual debris, with dull to no pain on palpation due to neuropathy, TA, T2, T5, T6, T7, T9, T1.?Dermatologic: ?SKIN FINDINGS:?Skin exam reveals Keratotic lesion(s) located at ,TA,T5, T8,Heel(s),B/L.? Assessment: * Assessment: 1.?Tinea unguium - B35.1?2.? Ingrown nail - L60.0 (Primary)?3.?Type 2 diabetes mellitus with diabetic polyneuropathy - E11.42? Plan: * Treatment: * Procedures:?Debride Nail 6-10:?Nail debridement?Nail debridement performed extensively to reduce/remove overall nail length and girth, subungual debris, and necrotic tissue, by manual and electrical means with use of a nail nipper and/or dremel, to more viable healthy nail plate or bed tissue 6-10. Silver nitrate used for any petechial bleeding as necessary. Patient chooses, no pharmaceutical tx ([id number]).?Keratoma Treatment:?Parring or Cutting of Benign Hyperkeratotic Lesion(s)?96657 ( >4 Lesions) - The Benign hyperkeratotic lesions, as described above were pared, and/or cut utilizing a sterile #15 blade, tissue nippers, and/or dremel.? * Immunizations:? Influenza (Not administered - Refused: Patient decision) * Procedure Codes:?18368 DEBRI DE NAIL, 6 OR MORE, Modifiers: XS 31792 TRIM SKIN LESIONS, OVER 4, Modifiers: XS * Follow Up:?3 Months * Images: * Sign off status: Completed true * Provider:?Birgit Sandoval, DPM Date:? Generated for Ann blanchard/Lorna/Vikram on:?01/13/2025 09:22 AM EST History and Physical Notes * HPI (History of Present Illness) Category Sub-Category Detail Notes Category Not es At Risk footcare Pt States Last PCP Visit: Date: 3 Examination Category Sub-Category Detail Notes Category Not es Neurological SENSORY: Neurological exa m demonstrates, reduced light touch sensation, reduced sharp/dull discrimination , reduced vibration sensation, Pt relates, tingling, paresthesia, B/L Dermatologic SKIN FINDINGS: Skin exam reveal s Keratotic lesion(s) located at ,TA, T5, T8,Heel(s),B/L Ophthalmology Referral DIABETES EYE EXAM Diabeti c Retinopathy Screening:: Yes Findings of Diabetic Eye Exam:: no retin opathy Nails NAILS are: Elongated, overg rown, dystrophic, lytic, greater than 3mm thick, discolored and friable with crumbly malodorous subungual debris, with dull to no pain on palpation due to neuropathy, TA, T2, T5, T6, T7, T9, T1
--- OUTSIDE RECORDS SUMMARY | 2025-01-13 09:22 | XMS_ITS ---
Author Organization [facility] Jose Address [address] [facility] [place] [address] Care Team Providers Care Horologist Apprentice Name Role Phone Ash Tucker MD Primary Care Provider Unavailab monica Birgit Sandoval Unavailable [phone] Allergies No Known Allergies REASON FOR VISIT At Risk Footcare, Painful Nail(s) aggrevated by shoes and causing difficulty standing/walking Medications Medication SIG (Take, Route, Frequency, Duration) Notes Start Date End Date Status Nifedical XL 60 MG 1 tablet Orally Once a day Active metFORMIN HCl 1000 MG 1 tablet with meal s Orally Twice a day Active Extra Depth Orthopedic Shoes (1 Pair) with Customized Heat Molded Multidensity Innersoles (3 Pair) as directed Dx: NIDDM/Polyneuropathy (E11.42), Hammertoe Foot Deformity (M20.41,M20.42), Preulcerative Skin Lesion(s) (L85.1 01/05/2018 Active Simvastatin 20 MG 1 tablet in the evening Orally Once a day Not-Taking Cephalexin 500 MG TAKE ONE CAPSULE BY MOUTH THREE TIMES A DAY Oral for 7 Not-Taking glyBURIDE 10mg twice a day Act joon Atenolol 100 MG 1 tablet Orally Once a day Active hydroCHLOROthiazide 50 MG 1 tablet in th e morning Orally Once a day Active Lisinopril 10 MG 1 tablet Orally twic e a day Active Pioglitazone HCl 30 MG 1 tablet Orally O nce a day Active Atorvastatin Calcium 80 MG 1 tablet Oral ly Once a day Active Ezetimibe 10 MG 1 tablet Orally Once a day Active Social History Tobacco Use: Social History Observation Description Date Details (start date - stop date) Never Smoker NA - NA Tobacco Use/Smoking Question Answer Notes Are you a: nonsmoker Additional Findings: Tobacco Non-User Current no n-smoker Tobacco use other than smoking: Question Answer Notes Are you an other tobacco user? No Vital Signs Height 5ft9in in 07/28/2024 Weight 238 lbs 07/28/2024 BMI 35.14 kg/m2 07/28/2024 Blood pressure systolic 126 mm Hg 07/28/20 24 Blood pressure diastolic 67 mm Hg 024 Encounters Encounter Location Date Provider Diagnosis [facility] [address] [place] [address] 07/28/2024 Birgit Sandoval Tinea unguium B35.1 and Type 2 diabetes mellitus with diabetic polyneuropathy E11.42 Assessments Encounter Date Diagnosis (ICD Code) Assessment Notes Treatment Notes Treatment Clinical Notes Section Notes 07/28/2024 Tinea unguium (ICD-10 - B35.1) 07/28/2024 Type 2 diabetes mellitus with diabetic polyneuropathy (ICD-10 - E11.42) Plan Of Treatment Next Appt Details Follow Up: 3 Months, Reason: Provider Name:Birgit chang, 01/19/2025 09:00:00 AM, [address] [place] [address], [id number], Procedure Notes * Category Sub-Category Detail Notes [...] as necessary. Patient chooses, no pharmaceutical tx ([id number]) Progress Notes * Juan Antonio FERNANDESDOB:[birth year] (74 yo M)Acc No.[id number]:07/28/2024 Progress Note Patient:?Juan Antonio Fernandes Provider:?Birgit Sandoval DPM :1950???Age:74 Y???Sex:Male Tera e:07/28/2024 [address] [place] Pcp:Ash Tucker MD Subjective: * Chief Complaints: * ???At Risk FootcarePainful N ail(s) aggrevated by shoes and causing difficulty standing/walking * HPI: ???At Risk footcare:?Pt States Last PCP Visit:?Date?01/07/2024 * ROS:?General/Constitutional:?Nausea?denies, denies, denies.?Vomiting?denies, denies, denies.?Hunger Thirst?denies, denies, denies.?Loss appetite?denies, denies, denies.?Chills?denies, denies, denies.?Fatigue?denies, denies, denies.?Fever?denies, denies, denies.?Night Sweats?denies, denies, denies.?Unexplained weight loss?denies, denies, denies.?Unexplained weight gain?denies, denies, denies.?HEENTM:?Dentures?denies, denies, denies.?Dizziness?denies, denies, denies.?Glasses/contacts?denies, denies, denies.?Retinopathy?denies, denies, denies.?Blurred/double vision?denies, denies, denies.?TMJ?denies, denies, denies.?Discharge/drainage?denies, denies, denies.?Implants?denies, denies, denies.?Sore throat?denies, denies, denies.?Dental implants?denies, denies, denies.?Hard of hearing ?denies, denies, denies.?Difficulty chewing/swallowing/speaking denies, denies, denies.?Nose bleeds?denies, denies, denies.?Sore mouth?denies, denies, denies.?Respiratory:?On Oxygen?denies, denies, denies.?Pneumonia/pleurisy?denies, denies, denies.?Bronchitis?denies, denies, denies.?Emphysema?denies, denies, denies.?Coughing?denies, denies, denies.?Cough blood?denies, denies, denies.?Shortness of breath?denies, denies, denies.?Wheezing?denies, denies, denies.?Cardiovascular:?Pacemaker?denies, denies, denies.?MVP?denies, denies, denies.?WPW?denies, denies, denies.?CHF?denies, denies, denies.?Heart attack?denies, denies, denies.?Septal defect?denies, denies, denies.?Rapid beat denies, denies, denies.?Chest pain ?denies, denies, denies.?Atrial Fib.?denies, denies, denies.?Murmur/Palpitations?denies, denies, denies.?Gastrointestinal:?Hemorrhoids?denies, denies, denies.?Stomach/Abdominal pain?denies, denies, denies.?Dark blood stool?denies, denies, denies.?Irritable bowel ?denies, denies, denies.?Constipation?denies, denies, denies.?Diarrhea?denies, denies, denies.?Hematology:?Swelling?admits, admits, admits.?Clots?denies, denies, denies.?Varicose Veins?denies, denies, denies.?Bruising?denies, denies, denies.?Bleeding problem?denies, denies, denies.?Genitourinary:?Blood urine?denies, denies, denies.?Frequent/Painfu/urination/bladder control?denies, denies, denies.?Kidney stones?denies, denies, denies.?Infection (UTI)?denies, denies, denies.?Nephropathy?denies, denies, denies. sex trans dis (STD)?denies, denies, denies.?Prostate?denies, denies, denies.?Musculoskeletal:?Hammertoes?denies, denies, denies.?Bunions?denies, denies, denies.?Back Pain?denies, denies, denies.?Muscle Cramps/ Resting?denies, denies, denies.?Muscle cramps / walking?denies, denies, denies.?Generalized aches and pains?admits, admits, admits.?Weakness?denies, denies, denies.?Integ.:?Nicholson?denies, denies, denies.?Scars?denies, denies, denies.?Corns/calluses?denies, denies, denies.?Ingrown nails?admits, admits, admits.?Painful nails?denies, denies, denies.?Open Sores?denies, denies, denies.?Rashes?denies, denies, denies.?Neurologic:?Difficulty sleeping?denies, denies, denies.?Brain disorder?denies, denies, denies.?Numbness?denies, denies, denies.?Balance trouble?denies, denies, denies.?Confusion?denies, denies, denies.?Fainting/blackouts?denies, denies, denies.?Tingling?denies, denies, denies.?Tremors?denies, denies, denies.? * Medical History:? * Surgical History:?Stent x2 p laced 05/2019 * Hospitalization/Major Diagno stic Procedure:?Denies Past Hospitalization * Family History:?Mother: dece ased, diagnosed with Unspecified essential hypertension.?Father: , diagnosed with Other malignant neoplasm of unspecified site.? * Social History:?Tobacco Use:?Tobacco Use/Smoking?Are you a:?nonsmoker ?Additional Findings: Tobacco Non-User?Current non-smoker ?Tobacco use other than smoking?Are you an other tobacco user??No ???Miscellaneous:?Caffeine: yes, frequency: Soda , 2-3 cups per day. ?no Children. ?Exercise: yes, work. ?Marital status: single. 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 * Medications:?TakingEzetimibe 10 MG Tablet 1 tablet Orally Once a dayAtorvastatin Calcium 80 MG Tablet 1 tablet Orally Once a dayhydroCHLOROthiazide 50 MG Tablet 1 tablet in the morning Orally Once a dayAtenolol 100 MG Tablet 1 tablet Orally Once a dayPioglitazone HCl 30 MG Tablet 1 tablet Orally Once a dayLisinopril 10 MG Tablet 1 tablet Orally twice a dayglyBURIDE 10mg twice a dayNifedical XL 60 MG Tablet Extended Release 24 Hour 1 tablet Orally Once a daymetFORMIN HCl 1000 MG Tablet 1 tablet with meals Orally Twice a dayExtra Depth Orthopedic Shoes (1 Pair) with Customized Heat Molded Multidensity Innersoles (3 Pair) as directed Dx: NIDDM/Polyneuropathy (E11.42), Hammertoe Foot Deformity (M20.41,M20.42), Preulcerative Skin Lesion(s) (L85.1Taking Ezetimibe 10 MG Tablet 1 tablet Orally Once a dayTaking Atorvastatin Calcium 80 MG Tablet 1 tablet Orally Once a dayTaking hydroCHLOROthiazide 50 MG Tablet 1 tablet in the morning Orally Once a dayTaking Atenolol 100 MG Tablet 1 tablet Orally [...] tablet with meals Orally Twice a dayTaking Extra Depth Orthopedic Shoes (1 Pair) with Customized Heat Molded Multidensity Innersoles (3 Pair) as directed Dx: NIDDM/Polyneuropathy (E11.42), Hammertoe Foot Deformity (M20.41,M20.42), Preulcerative Skin Lesion(s) (L85.1Not-Taking/PRNSimvastatin 20 MG Tablet 1 tablet in the evening Orally Once a dayCephalexin 500 MG Capsule TAKE ONE CAPSULE BY MOUTH THREE TIMES A DAY Oral Medication List reviewed and reconciled with the patientNot-Taking/PRN Simvastatin 20 MG Tablet 1 tablet in the evening Orally Once a dayNot-Taking/PRN Cephalexin 500 MG Capsule TAKE ONE CAPSULE BY MOUTH THREE TIMES A DAY Oral Medication List reviewed and reconciled with the patient * Allergies:?N.K.D.A.yes[Aller gies Verified] Objective: * Vitals:?Ht: 5ft9in, Wt:238, BMI:35.14, Shoe size: 11.5, BP:126/67 mm Hg, BS: 105, Ht-cm: 175.26 cm, Wt-k.95 kg. * ???Past Orders: ???Lab:HEMOGLOBIN A1C (GLYCO [...] T2, T5, T6, T7, T9, T1.?Dermatologic: ?SKIN FINDINGS:?, Skin exam reveals normal color, texture, elasticity, and turgor. There are no masses, nor excrescences. The interspaces are clear, B/L.? Assessment: * Assessment: 1.?Tinea unguium - B35.1?2.? Type 2 diabetes mellitus with diabetic polyneuropathy - E11.42 (Primary)? Plan: * Treatment: * Procedures:?Debride Nail 6-10:?Nail debridement?Nail debridement performed extensively to reduce/remove overall nail length and girth, subungual debris, and necrotic tissue, by manual and electrical means with use of a nail nipper and/or dremel, to more viable healthy nail plate or bed tissue 6-10. Silver nitrate used for any petechial bleeding as necessary. Patient chooses, no pharmaceutical tx ([id number]).? * Procedure Codes:?80971 DEBRI DE NAIL, 6 OR MORE, Modifiers: XS * Follow Up:?3 Months * Images: * Sign off status: Completed true * Provider:?Birgit Sandoval, DPMartha Date:? Generated for Ann blanchard/Lorna/eTransmitting on:?01/13/2025 09:22 AM EST History and Physical Notes * HPI (History of Present Illness) Category Sub-Category Detail Notes Category Not es At Risk footcare Pt States Last PCP Visit: Date: 4 Examination Category Sub-Category Detail Notes Category Not es Neurological SENSORY: Neurological exa m demonstrates, reduced light touch sensation, reduced sharp/dull discrimination , reduced vibration sensation, Pt relates, tingling, paresthesia, B/L Dermatologic SKIN FINDINGS: , Skin exam reve als normal color, texture, elasticity, and turgor. There are no masses, nor excrescences. The interspaces are clear, B/L Ophthalmology Referral DIABETES EYE EXAM Diabeti c Retinopathy Screening:: Yes Findings of Diabetic Eye Exam:: no retin opathy Nails NAILS are: Elongated, overg rown, dystrophic, lytic, greater than 3mm thick, discolored and friable with crumbly malodorous subungual debris, with dull to no pain on palpation due to neuropathy, TA, T2, T5, T6, T7, T9, T1
--- OUTSIDE RECORDS SUMMARY | 2025-01-13 09:23 | XMS_ITS ---
Author Organization [facility] m[facility] Jose Address [address] [facility] [place] [address] Care Team Providers Care Television Actor Name Role Phone Ash Tucker MD Primary Care Provider Unavailab monica ValverdeBirgit chang Unavailable [phone] Allergies No Known Allergies REASON FOR VISIT At Risk Footcare, Painful Nail(s) aggrevated by shoes and causing difficulty standing/walking, Ingrown Nail Medications Medication SIG (Take, Route, Frequency, Duration) Notes Start Date End Date Status Lisinopril 10 MG 1 tablet Orally twic e a day Active glyBURIDE 10mg twice a day Act joon Nifedical XL 60 MG 1 tablet Orally Once a day Active metFORMIN HCl 1000 MG 1 tablet with meal s Orally Twice a day Active Extra Depth Orthopedic Shoes (1 Pair) with Customized Heat Molded Multidensity Innersoles (3 Pair) as directed Dx: NIDDM/Polyneuropathy (E11.42), Hammertoe Foot Deformity (M20.41,M20.42), Preulcerative Skin Lesion(s) (L85.1 01/05/2018 Active Atenolol 100 MG 1 tablet Orally Once a day Active Pioglitazone HCl 30 MG 1 tablet Orally O nce a day Active hydroCHLOROthiazide 50 MG 1 tablet in th e morning Orally Once a day Active Ezetimibe 10 MG 1 tablet Orally Once a day Active Atorvastatin Calcium 80 MG 1 tablet Oral ly Once a day Active Cephalexin 500 MG TAKE ONE CAPSULE BY MOUTH THREE TIMES A DAY Oral for 7 Not-Taking Simvastatin 20 MG 1 tablet in the evening Orally Once a day Active Social History Tobacco Use: Social History Observation Description Date Details (start date - stop date) Never Smoker NA - NA Tobacco Use/Smoking Question Answer Notes Are you a: nonsmoker Additional Findings: Tobacco Non-User Current no n-smoker Tobacco use other than smoking: Question Answer Notes Are you an other tobacco user? No Vital Signs Height 5ft9in in 10/27/2024 Weight 240 lbs 10/27/2024 BMI 35.44 kg/m2 10/27/2024 Blood pressure systolic 130 mm Hg 10/27/20 24 Blood pressure diastolic 70 mm Hg 024 Encounters Encounter Location Date Provider Diagnosis [facility] [address] [address] 10/27/2024 Birgit Jaime Type 2 diabetes mellitus with diabetic polyneuropathy E11.42 ; Ingrown nail L60.0 and Tinea unguium B35.1 Assessments Encounter Date Diagnosis (ICD Code) Assessment Notes Treatment Notes Treatment Clinical Notes Section Notes 10/27/2024 Type 2 diabetes mellitus with diabetic polyneuropathy (ICD-10 - E11.42) 10/27/2024 Ingrown nail (ICD-10 - L60.0) 10/27/2024 Tinea unguium (ICD-10 - B35.1) Plan Of Treatment Next Appt Details Follow Up: 3 Months, Reason: Provider Name:Birgit Chang Abram bernardo, 01/19/2025 09:00:00 AM, [address] [place] [address], [phone], Procedure Notes * Category Sub-Category Detail Notes Nail Avulsion Procedure A fine sterile e levator was placed between the eponychium, nail fold, and nail plate to separate the structures. A sterile nail splitter, and/or sterile 316 blade, was then used to longitudinally section the nail along its entire length through the eponychium to the area under the nail fold. The offending portion of nail was from the nail bed with a rolling action and then removed with a hemostat. No underlying bone was identified. There was minimal bleeding as hemostasis was achieved through the temporary use of either a digital tourniquet or the aforementioned local with epinephrine. A bacitracin sterile dressing was applied. Local wound aftercare instructions were discussed and dispensed. The patient was informed of both conservative and future surgical procedures to prevent recurrence. Tylenol or Motrin was recommended for pain or discomfort (60394), Pt DEFERS matricectomy Anesthesia 3cc of 1 percent Lid ocaine Plain local anesthesic utilizing aseptic technique Location Medial nail border, TA Debride Nail 6-10 Nail debridement Due to the cl inical pathology outlined in the exam findings, performance of this nail treatment is medically necessary as its management by an unskilled/untrained nonprofessional would put this patients foot and overall health at risk. Therefore, debridement to affected nail(s), as described in exam ( TA, T2, T5, T6, T7, T9, T1), was performed exclusively by the physician of record to reduce/remove overall nail length, girth, thickness, subungual debris, and necrotic tissue, by manual and/or electrical means through the use of a nail nipper and/or dremel-type grinder set up operator surface, to a more viable healthy nail plate or bed tissue 6-10 nails in total. Silver nitrate was used for any petechial bleeding as necessary. Definitive antifungal treatment options, both pharmaceutical and surgical, have been reviewed and discussed with the patient. The patient solely prefers the use of intermittent/as needed professional debridement services for their nail condition and understands the need for additional periodic treatments to maintain effectiveness in symptomatic relief - 03779 Keratoma Treatment Parring or Cutting o f Benign Hyperkeratotic Lesion(s) (-56) 2-4 Lesions - Due to the at risk nature of the patients medical condition as documented in the exam findings, performance of this keratoderma treatment is medically necessary as its management by an unskilled/untrained nonprofessional would put this patients foot and overall health at risk. Therefore, the benign hyperkeratotic lesions, ( 4) in total, locations as stated and described in the exam ( Medial plantar, T5, Plantar Heel(s), B/L), were pared, and/or cut utilizing a sterile 15 blade, tissue nippers, and/or power dremel instrumentation by the physician of record - 26919 Progress Notes * Juan Antonio FERNANDESDOB:[birth year] (74 yo M)Acc No.[id number]:10/27/2024 Progress Note Patient:?Juan Antonio FERNANDES Provider:?Birgit Sandoval DPM :1950???Age:74 Y???Sex:Male Tera e:10/27/2024 Address:[place], [place] Pcp:Ash Tucker MD Subjective: * Chief Complaints: * ???At Risk FootcarePainful N ail(s) aggrevated by shoes and causing difficulty standing/walkingIngrown Nail * HPI: ???At Risk footcare:?Pt States Last PCP Visit:?Date?01/07/2024 * ROS:?General/Constitutional:?Nausea?denies.?Vomiting?denies.?Hunger Thirst?denies.?Loss appetite?denies.?Chills?denies.?Fatigue?denies.?Fever?denies.?Night Sweats?denies.?Unexplained weight loss?denies.?Unexplained weight gain?denies.?HEENTM:?Dentures?denies.?Dizziness?denies.?Glasses/contacts?denies.?Retinopathy?den ies.?Blurred/double vision?denies.?TMJ?denies.?Discharge/drainage?denies.?Implants?denies.?Sore throat?denies.?Dental implants?denies.?Hard of hearing ?denies.?Difficulty chewing/swallowing/speaking?denies.?Nose bleeds?denies.?Sore mouth?denies.?Respiratory:?On O xygen?denies.?Pneumonia/pleurisy?denies.?Bronchitis?denies.?Emphysema?denies.?Co ughing?denies.?Cough blood?denies.?Shortness of breath?denies.?Wheezing?denies.?Cardiovascular:?Pacemaker?denies.?MVP?denies.?WPW?denies.?CHF?denies.?Heart attack?denies.?Septal defect?denies.?Rapid beat?denies.?Chest pain ?denies.?Atrial Fib.?denies.?Murmur/Palpitations?denies.?Gastrointestinal:?Hemorrhoids?denies.?Stomach/Abdominal pain?denies.?Dark blood stool?denies.?Irritable bowel ?denies.?Constipation?denies.?Diarrhea?denies.?Hematology:?Swelling?admits.?Clots?denies.?Varicose Veins?denies.?Bruising?denies.?Bleeding problem?denies.?Genitourinary:?Blood urine?denies.?Frequent/Painfu/urination/bladder control?denies.?Kidney stones?denies.?Infection (UTI)?denies.?Nephropathy?denies.?sex trans dis (STD)?denies.?Prostate?denies.?Musculoskeletal:?Hammertoes?denies.?Bunions?denies.?Back Pain?denies.?Muscle Cramps/ Resting?denies.?Muscle cramps / walking?denies.?Generalized aches and pains?admits.?Weakness?denies.?Integ.:?Nicholson?denies.?Scars?denies.?Corns/calluses?denies.?Ingrown nails?admits.?Painful nails?denies.?Open Sores?denies.?Rashes?denies.?Neurologic:?Difficulty sleeping?denies.?Brain disorder?denies.?Numbness?denies.?Balance t rouble?denies.?Confusion?denies.?Fainting/blackouts?denies.?Tingling?denies.?Amol mors?denies.? * Medical History:? * Surgical History:?Stent x2 p laced 05/2019 * Hospitalization/Major Diagno stic Procedure:?Denies Past Hospitalization * Family History:?Mother: dece ased, diagnosed with Unspecified essential hypertension.?Father: , diagnosed with Other malignant neoplasm of unspecified site.? * Social History:?Tobacco Use:?Tobacco Use/Smoking?Are you a:?nonsmoker ?Additional Findings: Tobacco Non-User?Current non-smoker ?Tobacco use other than smoking?Are you an other tobacco user??No * Medications:?TakingEzetimibe 10 MG Tablet 1 tablet Orally Once a day Atorvastatin Calcium 80 MG Tablet 1 tablet Orally Once a day hydroCHLOROthiazide 50 MG Tablet 1 tablet in the morning Orally Once a day Atenolol 100 MG Tablet 1 tablet Orally Once a day Pioglitazone HCl 30 MG Tablet 1 tablet Orally Once a day Lisinopril 10 MG Tablet 1 tablet Orally twice a day glyBURIDE 10mg twice a day Nifedical XL 60 MG Tablet Extended Release 24 Hour 1 tablet Orally Once a day metFORMIN HCl 1000 MG Tablet 1 tablet with meals Orally Twice a day Extra Depth Orthopedic Shoes (1 Pair) with Customized Heat Molded Multidensity Innersoles (3 Pair) as directed Dx: NIDDM/Polyneuropathy (E11.42), Hammertoe Foot Deformity (M20.41,M20.42), Preulcerative Skin Lesion(s) (L85.1 Simvastatin 20 MG Tablet 1 tablet in the evening Orally Once a day Taking Ezetimibe 10 MG Tablet 1 tablet Orally Once a day Taking Atorvastatin Calcium 80 MG Tablet 1 tablet Orally Once a day Taking hydroCHLOROthiazide 50 MG Tablet 1 tablet in the morning Orally Once a day Taking Atenolol 100 MG Tablet 1 tablet Orally Once a day Taking Pioglitazone HCl 30 MG Tablet 1 tablet Orally Once a day Taking Lisinopril 10 MG Tablet 1 tablet Orally twice a day Taking glyBURIDE 10mg twice a day Taking Nifedical XL 60 MG Tablet Extended Release 24 Hour 1 tablet Orally Once a day Taking metFORMIN HCl 1000 MG Tablet 1 tablet with meals Orally Twice a day Taking Extra Depth Orthopedic Shoes (1 Pair) with Customized Heat Molded Multidensity Innersoles (3 Pair) as directed Dx: NIDDM/Polyneuropathy (E11.42), Hammertoe Foot Deformity (M20.41,M20.42), Preulcerative Skin Lesion(s) (L85.1 Taking Simvastatin 20 MG Tablet 1 tablet in the evening Orally Once a day Not-Taking/PRNCephalexin 500 MG Capsule TAKE ONE CAPSULE BY MOUTH THREE TIMES A DAY Oral Medication List reviewed and reconciled with the patientNot-Taking/PRN Cephalexin 500 MG Capsule TAKE ONE CAPSULE BY MOUTH THREE TIMES A DAY Oral Medication List reviewed and reconciled with the patient * Allergies:?N.K.D.A.yes[Aller gies Verified] Objective: * Vitals:?Ht: 5ft9in, Wt:240, BMI:35.44, Shoe size: 11.5, BP:130/70mm Hg, BS: 106, Ht-cm: 175.26 cm, Wt-k.86 kg. * ???Past Orders: ???Lab:HEMOGLOBIN A1C (GLYCO HEMOGLOBIN) (Order Date - 10/22/2023) (Collection Date & Time - 10/22/2023 09:31 AM) ? Value Reference Range ?HEMOGLOBIN A1C (HH) 6.7 * Examination: ???Ophthalmology Referral: ?DIABETES EYE EXAM?Procedure Performed:?Yes ?Date of Exam Performed?08/15/2024 ?Findings of Diabetic Eye Exam:?no retinopathy?Neurological: ?SENSORY:?Neurological [...] ?SKIN FINDINGS:?Skin exam reveals Keratotic lesion(s) located at, Medial plantar, T5, Plantar Heel(s), B/L.?Ingrown Nail: ?INSPECTION:?Reveals nail incurvation, pain on palpation, groove hypertrophy, Medial nail border, TA.?General Examination: ?FOOT EXAM:?Lower Extremity Neurological Exam performed:?Yes ?Visual exam of foot performed:?Yes ?Date?10/27/2024 ?Sensory testing performed:?sensations diminished ?Footwear Evaluation?Footwear Evaluation performed:?Yes??? Assessment: * Assessment: 1.?Type 2 diabetes mellitus with diabetic polyneuropathy - E11.42???2.?Ingrown nail - L60.0 (Primary)???3.?Tinea unguium - B35.1??? Plan: * Treatment: * Procedures:?Debride Nail 6-10:?Nail debridement?Due to the clinical pathology outlined in the exam findings, performance of this nail treatment is medically necessary as its management by an unskilled/untrained nonprofessional would put this patients foot and overall health at risk. Therefore, debridement to affected nail(s), as described in exam (?TA,?T2,?T5,?T6, T7,?T9,?T1), was performed exclusively by the physician of record to reduce/remove overall nail length, girth, thickness, subungual debris, and necrotic tissue, by manual and/or electrical means through the use of a nail nipper and/or dremel-type grinder set up operator surface, to a more viable healthy nail plate or bed tissue 6- 10 nails in total. Silver nitrate was used for any petechial bleeding as necessary. Definitive antifungal treatment options, both pharmaceutical and surgical, have been reviewed and discussed with the patient. The patient solely prefers the use of intermittent/as needed professional debridement services for their nail condition and understands the need for additional periodic treatments to maintain effectiveness in symptomatic relief - 84704.?Keratoma Treatment:?Parring or Cutting of Benign Hyperkeratotic Lesion(s)?(-56) 2-4 Lesions - Due to the at risk nature of the patients medical condition as documented in the exam findings, performance of this keratoderma treatment is medically necessary as its management by an unskilled/untrained nonprofessional would put this patients foot and overall health at risk. Therefore, the benign hyperkeratotic lesions, ( 4) in total, locations as stated and described in the exam (?Medial plantar,?T5,?Plantar Heel(s),?B/L), were pared, and/or cut utilizing a sterile 15 blade, tissue nippers, and/or power dremel instrumentation by the physician of record - 70335.?Nail Avulsion:?Location?Medial nail border, TA.?Anesthesia?3cc of 1 percent Lidocaine Plain local anesthesic utilizing aseptic technique.?Procedure?A fine sterile elevator was placed between the eponychium, nail fold, and nail plate to separate the structures. A sterile nail splitter, and/or sterile 316 blade, was then used to longitudinally section the nail along its entire length through the eponychium to the area under the nail fold. The offending portion of nail was from the nail bed with a rolling action and then removed with a hemostat. No underlying bone was identified. There was minimal bleeding as hemostasis was achieved through the temporary use of either a digital tourniquet or the aforementioned local with epinephrine. A bacitracin sterile dressing was applied. Local wound aftercare instructions were discussed and dispensed. The patient was informed of both conservative and future surgical procedures to prevent recurrence. Tylenol or Motrin was recommended for pain or discomfort (45810), Pt DEFERS matricectomy.? * Procedure Codes:?95261 DEBRI DE NAIL, 6 OR MORE, Modifiers: XS 13569 Avulsion Plate, Modifiers: XS , [id number] TRIM SKIN LESIONS, 2 TO 4, Modifiers: XS * Preventive Medicine:? ??Screening/Special Tests:?Fall Risk?Assessment:?Performed ?Screening:?No falls in the past year ?FALLS: Screening for Future Fall Risk?Have you had two or more falls in the past year??No ?Have you had any falls with injury in the past year??No * Follow Up:?3 Months * Images: * Sign off status: Completed true * Provider:?Birgit aSndoval DPM Date:? Generated for Ann blanchard/Lorna/Vikram on:?01/13/2025 09:22 AM EST History and Physical Notes * HPI (History of Present Illness) Category Sub-Category Detail Notes Category Not es At Risk footcare Pt States Last PCP Visit: Date: 4 Examination Category Sub-Category Detail Notes Category Not es Ingrown Nail INSPECTION: Reveals nail inc urvation, pain on palpation, groove hypertrophy, Medial nail border, TA Neurological SENSORY: Neurological exa m demonstrates, reduced light touch sensation, reduced sharp/dull discrimination , reduced vibration sensation, Pt relates, tingling, paresthesia, B/L Dermatologic SKIN FINDINGS: Skin exam reveal s Keratotic lesion(s) located at, Medial plantar, T5, Plantar Heel(s), B/L General Examination FOOT EXAM: Lower Extrem ity Neurological Exam performed:: Yes Visual exam of foot performed:: Yes Date: 10/27/2024 Sensory testing performed:: sensations d iminished Footwear Evaluation Footwear Evaluation performe d:: Yes Ophthalmology Referral DIABETES EYE EXAM Procedure Perform ed:: Yes ?Date of Exam Performed: 08/15/2024 Findings of Diabetic Eye Exam:: no retin opathy Nails NAILS are: Elongated, overg rown, dystrophic, lytic, greater than 3mm thick, discolored and friable with crumbly malodorous subungual debris, with dull to no pain on palpation due to neuropathy, TA, T2, T5, T6, T7, T9, T1
--- OUTSIDE RECORDS SUMMARY | 2025-01-13 09:23 | XMS_ITS | Encounter Summary ---
Author Organization [facility] Address [address] [facility] [address] [place] [address] Phone Care Team Providers Care Pressurizer Name Role Phone Ash Tucker MD Primary Care Provider [phone] Encounter Details Date Type Department Care Team (Late Contact Info) Description 06/07/2024 Office Communication [facility] [address] [facility] [address] [place] [address] Melvin Becerra MD [address] [facility] [address] [place] [address] Social History Tobacco Use Types Packs/Day Years Used Date Smoking Tobacco: Never Smokeless Tobacco: Never Alcohol Use Standard Drinks/Week Comments Never 0 (1 standard drink = 0.6 oz pur e alcohol) Sex and Gender Information Value Date Recorded Sex Assigned at Not on file Legal Sex Male 9:16 AM EDT Gender Identity Not on file Sexual Orientation Not on file documented as of this encounter Miscellaneous Notes * Telephone Encounter - Melvin Becerra MD - 06/07/2024 9:42 AM EDT Pls call PT and tell him to start med to keep potassium controlled --I will send to his pharmacy Lokelma 10 gm 3x/week documented in this encounter Plan of Treatment Upcoming Encounters Date Type Department Care Team (Late st Contact Info) Description 01/22/2025 1:00 PM EDT Office Visit [facility] [address] [place] [id number] Melvin Becerra MD [address] [address] documented as of this encounter Visit Diagnoses Not on filedocumented in this encounter Care Teams Pressurizer Relationship Specialty Start Date End Date Ash Tucker MD [address] [place] [address] PCP - General Internal Medicine 05/18/24 documented as of this encounter
--- OUTSIDE RECORDS SUMMARY | 2025-01-13 09:23 | XMS_ITS | Patient Health Record ---
Author [facility] Address [address] [facility] [place] [address] Care Team Providers Care Hand Clipper Name Role Phone Ash Tucker MD Primary Care Provider Unavailab monica Sandoval Birgit Unavailable [phone] Jordan Joel Unavailable [phone] Allergies No Known Allergies Reason For Referral No Information Medications Medication SIG (Take, Route, Frequency, Duration) Notes Start Date End Date Status Atenolol 100 MG 1 tablet Orally Once a day Active Pioglitazone HCl 30 MG 1 tablet Orally O nce a day Active Lisinopril 10 MG 1 tablet Orally twic e a day Active glyBURIDE 10mg twice a day Act joon hydroCHLOROthiazide 50 MG 1 tablet in th e morning Orally Once a day Active Ezetimibe 10 MG 1 tablet Orally Once a day Active Cephalexin 500 MG TAKE ONE CAPSULE BY MOUTH THREE TIMES A DAY Oral for 7 Not-Taking Atorvastatin Calcium 80 MG 1 tablet Oral ly Once a day Active Nifedical XL 60 MG 1 tablet Orally [...] the evening Orally Once a day Active Immunizations Vaccine Route Administration Date Status Comme nts COVID-19 Pfizer BioNTech Vaccine Unknown 04/04/2021 Administered Firs Dose: 05/0 05/2021 Influenza Unknown 01/05/2018 Refused Influenza Unknown 07/05/2018 Refused Influenza Unknown 10/04/2018 Refused Influenza Unknown 04/19/2020 Refused Influenza Unknown 04/28/2024 Refused Social History Tobacco [...] Are you an other tobacco user? No Problems Problem Type SNOMED Code ICD Code Onset Dates Problem Status W/U Status Risk Notes Problem Polyneuropathy due to type 2 diabetes mellitus (852128929) Type 2 diabetes mellitus with diabetic polyneuropathy (E11.42) Active confirmed Vital Signs Blood pressure diastolic 70 mm Hg 10/27/2024 Height 5ft9in in 10/27/2024 Blood pressure systolic 130 mm Hg 10/27/2024 Weight 240 lbs 10/27/2024 BMI 35.44 kg/m2 10/27/2024 Encounters Encounter Location Date Provider Diagnosis [address] [address] 2024 Joel Jordan Tinea unguium B35.1 ; Ingrown nail L60.0 and Type 2 diabetes mellitus with diabetic polyneuropathy E11.[address] [address] 04/28/2024 Birgit Perica Tinea unguium B35.1 ; Ingrown nail L60.0 and Type 2 diabetes mellitus with diabetic polyneuropathy E11.[address] [address] 07/28/2024 Birgit Perica Tinea unguium B35.1 and Type 2 diabetes mellitus with diabetic polyneuropathy E11.[address] [address] 10/27/2024 Birgit Perica Type 2 diabetes mellitus with diabetic polyneuropathy E11.42 ; Ingrown nail L60.0 and Tinea unguium B35.1 Assessments Encounter Date Diagnosis (ICD Code) Assessment Notes Treatment Notes Treatment Clinical Notes Section Notes 2024 Tinea unguium (ICD-10 - B35.1) 04/28/2024 Tinea unguium (ICD-10 - B35.1) 07/28/2024 Tinea unguium (ICD-10 - B35.1) 07/28/2024 Type 2 diabetes mellitus with diabetic polyneuropathy (ICD-10 - E11.42) 10/27/2024 Type 2 diabetes mellitus with diabetic polyneuropathy (ICD-10 - E11.42) 10/27/2024 Ingrown nail (ICD-10 - L60.0) 10/27/2024 Tinea unguium (ICD-10 - B35.1) 04/28/2024 Ingrown nail (ICD-10 - L60.0) 2024 Type 2 diabetes mellitus with diabetic polyneuropathy (ICD-10 - E11.42) 2024 Ingrown nail (ICD-10 - L60.0) 04/28/2024 Type 2 diabetes mellitus with diabetic polyneuropathy (ICD-10 - E11.42) Plan Of Treatment Pending Test Test Name Order Date [id number] NAIL, 6 OR MORE 01/05/2018 [id number] NAIL, 6 OR MORE 04/01/2018 [id number] NAIL, 6 OR MORE 07/05/2018 [id number] NAIL, 6 OR MORE 10/04/2018 51092-[id number] Plate 07/05/2018 30261-NOIL SKIN LESIONS, OVER 4 07/05/20 18 66651-EREX SKIN LESIONS, OVER 4 04/01/20 18 [id number] SKIN LESIONS, OVER 4 01/05/20 18 28590-GPII SKIN LESIONS, OVER 4 10/04/20 18 Next Appt Details Provider Name:Birgit chang, 01/19/2025 09:00:00 AM, [address] [facility], [place], [address], Insurance Providers Payer Name Payer Address Payer Phone Subscriber Number Group Number Insured Name Patient Relationship to Insured Coverage Start Date Coverage End Date Medicare [employer] [address] [place] [address] [phone] [id number] Rainaud, Juan Antonio Self - patient is the insured 4 Medical (General) History Medical History History ICD Code Diabetic type 2 High blood pressure Measles Surgical History Surgery Date(Month/Year) Stent x2 placed 05/2019
--- OUTSIDE RECORDS SUMMARY | 2025-01-13 09:23 | XMS_ITS | Encounter Summary ---
Author Organization [facility] Address [address] [address] Phone Care Team Providers Care Tower Dragline Operator Name Role Phone Ash Tucker MD Primary Care Provider [phone] Encounter Details Date Type Department Care Team ([facility] Contact Info) Description 12/17/2024 Orders Only [facility] [address] [place] [address] Melvin Becerra MD [address] [address] Stage 3b chronic kidney disease (HCC); Renal osteodystrophy; Essential (primary) hypertension Social History Tobacco Use Types Packs/Day Years [...] on file documented as of this encounter Plan of Treatment Upcoming Encounters Date Type Department Care Team (Late Contact Info) Description 01/22/2025 1:00 PM EDT Office Visit [facility] [address] [place] [address] Melvin Becerra MD [address] [address] documented as of this encounter Visit Diagnoses Diagnosis Stage 3b chronic kidney disease (HCC) Renal osteodystrophy Essential (primary) hypertension documented in this encounter Care Teams Tower Dragline Operator Relationship Specialty Start Date End Date Ash Tucker MD [address] [place] [address] PCP - General Internal Medicine 05/18/24 documented as of this encounter
[2025-01-13 10:20] LABS: MANUAL DIFF FLAG NO
[2025-01-13 11:04] LABS: Basophils Absolute Auto 0.1 X10*3/uL (0.0-0.2); Basophils Percent Auto 0.7 % (0-2); Hematocrit 35.7 % (42.0-52.0); Hemoglobin 11.7 g/dl (14.0-18.0); Imm Gran Abs Auto 0.05 X10*3/uL (0.00-0.03); Imm Gran Pct Auto 0.4 % (0.0-0.4); Lymphocytes Percent Auto 16.9 % (20-40); Mean Corpuscular HGB Conc 32.8 g/dl (31.0-36.0); Mean Corpuscular Hemoglobin 29.6 pg (27.0-33.0); Mean Corpuscular Volume 90.4 fL (80.0-98.0); Mean Platelet Volume 9.9 fL (9.4-12.4); Monocytes Absolute Auto 1.4 X10*3/uL (0.1-1.2); Monocytes Percent Auto 11.8 % (2-11); Neutrophils Absolute Auto 8.4 x10*3/uL (2.0-8.3); Neutrophils Percent Auto 70.2 % (45-73); Platelet Count 364 X10*3/uL (160-400); Red Blood Count 3.95 X10*6/uL (4.60-5.80); Red Cell Distribution Width 14.4 % (11.0-16.0)
[2025-01-13 11:21] LABS: Appearance Urine Clear; Color Urine Yellow; Glucose Urine UA Negative (Negative); Leukocyte Esterase Urine Negative (Negative); Nitrite Urine Negative (Negative); PH 6.5 (5.0-9.0); Specific Gravity - Urine 1.015 (1.005-1.025); Urine Blood Negative (Negative); Urine Ketones Negative (Negative); Urine Protein Negative (Neg-Trace)
[2025-01-13 11:26] LABS: Bacteria Urine None Seen (None Seen); Hyaline Casts Urine 0-2 /LPF (0-2); RBC Urine 0-2 /HPF (0-2); Squamous Epithelial Cell Urine 0-2 /HPF (0-2); WBC Urine 0-5 /HPF (0-5)
[2025-01-13 12:06] LABS: Creatinine Urine 77.98 mg/dL; Microalbum/Creatinine Ratio Ur 10.2 ug/mg cr (<30); Total Protein Urine Random < 7 mg/dL (<12)
[2025-01-13 12:07] LABS: Parathyroid Hormone Intact 61.2 pg/mL (8.7-77.1)
[2025-01-13 12:15] LABS: Albumin Level 3.9 g/dL (3.5-5.0); Anion Gap 13 (12-20); Blood Urea Nitrogen 59 mg/dL (9-16); Calcium 9.3 mg/dL (8.4-10.2); Carbon Dioxide 23 mmol/L (22-29); Chloride 107 mmol/L (96-108); Estimated Glomerular Filt Rate 40; Magnesium 2.2 mg/dL (1.6-2.6); Phosphorus 3.9 mg/dL (2.7-4.5); Potassium 4.8 mmol/L (3.3-5.1); Sodium 138 mmol/L (135-145)
[2025-01-13 12:23] LABS: Vitamin D 25-OH Total 24.8 ng/mL (>30)
[2025-01-18 05:18] LABS: Calcitonin 3 pg/mL (<=10)
== END 2025-01-13 09:19 | disposition home or self-care (01) ==
LOC: HO.LAB 09:18
PROVIDERS: PCP Internal Medicine; Visit Provider Internal Medicine Nephrology
DX: N18.32 Chronic kidney disease, stage 3b (principal); N25.0 Renal osteodystrophy; I10 Essential (primary) hypertension
CPT/HCPCS: 36415; 80051; 81001; 82040; 82043; 82306; 82308; 82310; 82565; 82570; 83735; 83970; 84100; 84156; 84520; 85025

== ENCOUNTER 2025-04-16 08:55 | Outpatient (AMB) | payer MEDICARE, SELFPAY ==
--- NOTE | 2025-04-16 08:59 | A.OFFVIS_ITS ---
Vital Signs 04/16/25 09:03 Height 5 ft 9 in Weight 231 lb 7.766 oz BMI 34.2 BP 110/58 L Blood Pressure Location Lt brachial Position Sitting Pulse 65 Pulse Source Monitor Intake Visit Reasons: 4 mth fu Intake Note: 4 mth f/up Podiatrist Orthopedic Required: No Accompanied by: Self / Same As Patient Allergies No Known Allergies Allergy (Verified 04/22/24 09:08) Medication List - Last Reconciled 04/16/25 by Husam Barnes MD atorvastatin 80 mg PO BEDTIME 90 days clopidogrel (Plavix) 75 mg PO DAILY ezetimibe 10 mg PO DAILY furosemide (Lasix) 20 mg PO DAILY glyburide 10 mg PO BID hydrochlorothiazide 50 mg PO DAILY isosorbide mononitrate ER 30 mg PO DAILY lisinopril 20 mg PO BID metformin 1,000 mg PO BID metoprolol succinate ER 200 mg PO DAILY nifedipine ER 90 mg PO DAILY HPI Comments Details: Pleasant 75-year-old gentleman here for follow-up. He has background history of coronary artery disease for which he underwent RCA PCI in the past he had moderate LAD disease which was medically managed. He has done well since the RCA PCI and has not had any significant symptoms. He has peripheral edema related to nifedipine use. Previously had stress testing which was normal. Has been clinically stable and denying any symptoms on follow-up. [facility] Surgical History History of cardiac cath Family History Mother No problems noted. Father No problems noted. 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 Review of Systems Const Denies chills, Denies fatigue, Denies fever(s), Denies frequent falls, Denies weakness, Denies weight gain and Denies weight loss ENT Denies dizziness Card Denies chest pain, Denies leg edema, Denies lightheadedness, Denies palpitations, Denies dyspnea and Denies dyspnea on exertion Resp Denies cough, Denies dyspnea and Denies dyspnea on exertion GI Denies hematochezia Musc Denies abnormal gait, Denies muscle weakness, Denies numbness, Denies radiating pain into limb and Denies tingling Neuro Denies abnormal gait, Denies dizziness, Denies frequent falls, Denies numbness, Denies tingling and Denies weakness Endo Denies fatigue and Denies palpitations Physical Exam Vital Signs: Last Vital Signs Pulse 65 04/16/25 09:03 BP 110/58 L 04/16/25 09:03 BMI result Body Mass Index 34.2 GENERAL APPEARANCE: in no acute distress, pleasant. NECK: no carotid bruit, no jugular venous distention. SKIN: no suspicious lesions, warm and dry. HEART: no murmurs, regular rate and rhythm. LUNGS: clear to auscultation bilaterally. ABDOMEN: soft, nontender. EXTREMITIES: Mild edema. PERIPHERAL PULSES: equal. NEUROLOGIC: No gross deficits, AAO X 3 Office Procedures EKG Details: Sinus rhythm 65 beats per minute, first-degree AV block with OR interval 320 milliseconds, normal axis, QTC 386 milliseconds. 62182-Ywzaktfvjccakwmob, Complete Assessment & Plan Assessment & Plan (1) Essential hypertension: Code(s): I10 - Essential (primary) hypertension Category: Medical (2) Stable angina: Code(s): I20.89 - Other forms of angina pectoris Category: Medical Plan Pleasant 75 gentleman is here for follow-up. He has stable angina. Clinically stable. He is currently taking Plavix monotherapy. Blood pressure control is good. He has peripheral edema due to nifedipine. Clinically not in heart failure. He has no exertional symptoms and can continue to drive truck. He did stress testing in January of 2022. If DOT requires new stress testing then he will reach out to us. Follow up with us in 1 year. Thank you for allowing me to participate in the care of your patient. Please feel free to contact me if you have any questions. Coding Level of Care Code Est Pt Level 3 (36362) Diagnoses Essential hypertension I10 Stable angina I20.89 CPT Codes EKG - CPT: 13904-Izpvalaehzezdcftj, Complete ([id number])
[2025-04-16 09:03] VITALS: BP 110/58; PULSE 65; BMI 34.2
--- OUTSIDE RECORDS SUMMARY | 2025-04-16 09:09 | XMS_ITS | Patient Health Record ---
Author Organization [facility] Address [address] [place] [address] Care Team Providers Care Rural Route Carrier Name Role Phone Ash Tucker MD Primary Care Provider Unavailab monica ValverdeBirgit chang Unavailable [phone] Allergies No Known Allergies Results Component Value Reference Range Notes HEMOGLOBIN A1C (GLYCOHEMOGLO BIN) Reviewed date:01/19/2025 09:03:04 AM Interpretation: Performing Lab: Notes/Report: HEMOGLOBIN A1C % (HH) 6.7 Reason For Referral No Information Medications Medication SIG (Take, Route, Frequency, Duration) Notes Start Date End Date Status hydroCHLOROthiazide 50 MG 1 tablet in th e morning Orally Once a day Active Atorvastatin Calcium 80 MG 1 tablet Oral ly Once a day Active Ezetimibe 10 MG 1 tablet Orally Once a day Active Cephalexin 500 MG TAKE ONE CAPSULE BY MOUTH THREE TIMES A DAY Oral for 7 Not-Taking Simvastatin 20 MG 1 tablet in the evening Orally Once a day Active glyBURIDE 10mg twice a day Act joon Lisinopril 10 MG 1 tablet Orally twic e a day Active Pioglitazone HCl 30 MG 1 tablet Orally O nce a day Active Atenolol 100 MG 1 tablet Orally Once a day Active metFORMIN HCl 1000 MG 1 tablet with meal s Orally Twice a day Active Nifedical XL 60 MG 1 tablet Orally Once a day Active Extra Depth Orthopedic Shoes (1 Pair) with Customized Heat Molded Multidensity Innersoles (3 Pair) as directed Dx: NIDDM/Polyneuropathy (E11.42), Hammertoe Foot Deformity (M20.41,M20.42), Preulcerative Skin Lesion(s) (L85.1 01/05/2018 Active Immunizations Vaccine Route Administration Date Status [...] Problem Status W/U Status Risk Notes Problem Other hammer toe(s) (acquired), right foot (M20.41) Active confirmed Problem Acquired hammer toe of left foot ([id number] ) Other hammer toe(s) (acquired), left foot (M20.42) Active confirmed Problem Polyneuropathy due to type 2 diabetes mellitus (340829417) Type 2 diabetes mellitus with diabetic polyneuropathy (E11.42) Active confirmed Vital Signs Blood pressure diastolic 70 mm Hg 04/04/2025 Height 5ft9in in 04/04/2025 Blood pressure systolic 131 mm Hg 04/04/2025 Weight 240 lbs 04/04/2025 BMI 35.44 kg/m2 04/04/2025 Encounters [facility] [address] [facility]28[facility] Birgit Perica Tinea unguium B35.1 ; Ingrown nail L60.0 and Type 2 diabetes mellitus with diabetic polyneuropathy E11.[address] [address] 07/28/2024 Birgit Perica Tinea unguium B35.1 and Type 2 diabetes mellitus with diabetic polyneuropathy E11.[address] [address] 10/27/2024 Birgit Perica Type 2 diabetes mellitus with diabetic polyneuropathy E11.42 ; Ingrown nail L60.0 and Tinea unguium B35.[address] [address] 01/19/2025 iBrgit Sandoval Type 2 diabetes mellitus with diabetic polyneuropathy E11.42 ; Tinea unguium B35.1 ; Other hammer toe(s) (acquired), right foot M20.41 and Other hammer toe(s) (acquired), left foot M20.[address] [address] 04/04/2025 Birgit Sandoval Type 2 diabetes mellitus with diabetic polyneuropathy E11.42 and Tinea unguium B35.1 Assessments Encounter Date Diagnosis (ICD Code) Assessment Notes Treatment Notes Treatment Clinical Notes Section Notes 04/28/2024 Tinea unguium (ICD-10 - B35.1) 10/27/2024 Type 2 diabetes mellitus with diabetic polyneuropathy (ICD-10 - E11.42) 10/27/2024 Ingrown nail (ICD-10 - L60.0) 01/19/2025 Tinea unguium (ICD-10 - B35.1) 01/19/2025 Type 2 diabetes mellitus with diabetic polyneuropathy (ICD-10 - E11.42) 04/04/2025 Tinea unguium (ICD-10 - B35.1) 04/04/2025 Type 2 diabetes mellitus with diabetic polyneuropathy (ICD-10 - E11.42) 07/28/2024 Tinea unguium (ICD-10 - B35.1) 07/28/2024 Type 2 diabetes mellitus with diabetic polyneuropathy (ICD-10 - E11.42) 10/27/2024 Tinea unguium (ICD-10 - B35.1) 01/19/2025 Other hammer toe(s) (acquired), right foot (ICD-10 - M20.41) 04/28/2024 Ingrown nail (ICD-10 - L60.0) 04/28/2024 Type 2 diabetes mellitus with diabetic polyneuropathy (ICD-10 - E11.42) 01/19/2025 Other hammer toe(s) (acquired), left foot (ICD-10 - M20.42) Plan Of Treatment Pending Test Test Name Order Date [id number] NAIL, 6 OR MORE 01/05/2018 [id number] NAIL, 6 OR MORE 04/01/2018 [id number] NAIL, 6 OR MORE 07/05/2018 [id number] NAIL, 6 OR MORE 10/04/2018 [id number] Plate 07/05/2018 [id number] SKIN LESIONS, OVER 4 07/05/20 18 [id number]-FVGH SKIN LESIONS, OVER 4 04/01/20 18 [id number] SKIN LESIONS, OVER 4 01/05/20 18 [id number] SKIN LESIONS, OVER 4 10/04/20 18 Next Appt Details Provider Name:Birgit chang, 07/06/2025 11:15:00 AM, [address] [place] [address], [phone], Insurance Providers Payer Name Payer Address Payer Phone Subscriber Number Group Number Insured Name Patient Relationship to Insured Coverage Start Date Coverage End Date Medicare [facility] [address] [place] [address] [id number] Juan Antonio Gaines Self - patient is the insured 4 Medical (General) History Medical History History ICD Code Diabetic type 2 High blood pressure Measles Surgical History Surgery Date(Month/Year) Stent x2 placed 05/2019
== END 2025-04-16 09:22 | disposition home or self-care (01) ==
LOC: HO.HCS 08:55
PROVIDERS: PCP Internal Medicine; Visit Provider Internal Medicine Cardiovascular Disease
DX: I10 Essential (primary) hypertension (principal); I20.89 Other forms of angina pectoris
CPT/HCPCS: 93010; 99213

== ENCOUNTER → 2025-04-16 08:55 | Outpatient (BNVA) | payer MEDICARE, SELFPAY | PROVIDERS: PCP Internal Medicine; Visit Provider Internal Medicine Cardiovascular Disease | DX: I10 Essential (primary) hypertension (principal); I20.89 Other forms of angina pectoris; I44.0 Atrioventricular block, first degree | CPT/HCPCS: 93005; 99212 ==

== ENCOUNTER 2025-06-11 09:24 | Outpatient (AMB) | payer MEDICARE, SELFPAY ==
--- NOTE | 2025-06-11 09:29 | A.OFFPC_ITS ---
Vital Signs 06/11/25 09:31 06/11/25 10:12 Height 5 ft 7.32 in Weight 236 lb BMI 36.6 BP 142/67 H 136/61 Blood Pressure Location Rt brachial Position Sitting Respiration 16 Pulse 66 Pulse Source Pulse Oximeter Temp 97.6 F Temp Source Temporal Artery Scan Pulse Oximetry (%) 95 Oxygen Delivery Method Room Air Intake Visit Reasons: establish care [employer] Superintendent Required: No Accompanied by: Self / Same As Patient Allergies No Known Allergies Allergy (Verified 06/11/25 09:43) Medication List - Last Reconciled 06/11/25 by Trice Chou PA-C atorvastatin 80 mg PO BEDTIME 90 days blood sugar diagnostic (FreeStyle Lite Strips) As directed clopidogrel (Plavix) 75 mg PO DAILY ezetimibe 10 mg PO DAILY furosemide (Lasix) 20 mg PO DAILY glyburide 10 mg PO BID hydrochlorothiazide 50 mg PO DAILY isosorbide mononitrate ER 30 mg PO DAILY lisinopril 20 mg PO BID metformin 1,000 mg PO BID metoprolol succinate ER 200 mg PO DAILY nifedipine ER 30 mg PO DAILY nifedipine ER 60 mg PO DAILY pioglitazone 30 mg PO DAILY Tobacco use date assessed: 06/11/25 Fall risk assessment: 1 Fall in past year Last assessed Fall Risk: 06/11/25 Dental Screening Dental Screen Date: 06/11/25 Did you have a dental visit in the last 12 months?: Yes Did you have a dental problem in the last 6 months where you did not have access to dental care?: No Was dental information given to patient?: Patient has dentist HPI establish care HPI Details The patient is a 75-year-old male presenting for new patient appointment as he was a patient of Dr. Ferro who retired. Patient presenting for a routine follow-up for chronic conditions management, including diabetes and coronary artery disease. The patient has a history of Type 2 Diabetes Mellitus, managed with Metformin 1000 mg twice daily and Actos 30 mg. His A1c is currently 6.4, indicating good glycemic control. The patient has a history of coronary artery disease, having undergone RCA PCI in the past and has moderate LAD disease managed medically. He has two stents placed and is on Plavix. Being followed by Cardiology Dr. Dov guevara at [facility] has follow-up April of next year had a recent normal follow-up April of this year. The patient reports peripheral edema, attributed to nifedipine use, with no clinical evidence of heart failure. 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 The patient has chronic kidney disease with a BUN of 59, creatinine of 1.6, and GFR of 40, and is under the care of a batch and furnace operator, Dr. Becerra. The patient has chronic anemia and a history of elevated white blood cell count. The patient has a venous ulcer on the right lower extremity, for which topical antibiotics are being used. He has been advised to monitor the ulcer and consider visiting a wound clinic if it worsens. Social History - Housing: Lives with his brother, no az ed for additional care support. - Travel: Plans to travel to [place] for six weeks, owns a mobile home there. [facility] Medical History Severe obesity with body mass index (BMI) of 36.0 to 36.9 with serious comorbidity Venous ulcer of right leg Chronic anemia CKD stage 3b, GFR 30-44 ml/min Type 2 diabetes mellitus with hemoglobin A1c goal of less than 7.0% Surgical History History of cardiac cath Family History Mother Skin cancer Father Skin cancer Social History Housing: House Alcohol intake: current Alcohol intake frequency: does not drink Patient Tobacco Use Status: Never used Tobacco service: No Current occupational status: employed Cognitive needs: No Hearing needs: No Vision needs: No Questionnaire PHQ-9 Over the last 2 weeks, how often have you been bothered by any of the following problems? 1. Little interest or pleasure in doing things: not at all 2. Feeling down, depressed, or hopeless: not at all 3. Trouble falling or staying asleep, or sleeping too much: not at all 4. Feeling tired or having little energy: not at all 5. Poor appetite or overeating: not at all 6. Feeling bad about yourself - or that you are a failure or have let yourself or your family down: not at all 7. Trouble concentrating on things, such as reading the newspaper or watching television: not at all 8. Moving or speaking so slowly that other people could have noticed. Or the opposite - being so fidgety or restless that you have been moving around a lot more than usual: not at all 9. Thoughts that you would be better off or of hurting yourself in some way: not at all Total score: 0 Depression Screening Interpretation: Negative Depression Screening Done: Yes 40646 - PHQ-9 Billing: Yes Source: Developed by Drs. Emery López, Parul Kasper, Elvin Moreno and colleagues, with an educational fredi from [employer]. Thrive Questionnaire Date Thrive assessed: 06/11/25 I am a: Patient What is your living situation today?: I have a steady place to live Within the past 12 months, did the food you bought not last and you didn't have the money to get more?: Never true Within the past 12 months, did you worry whether your food would run out before you got money to buy more?: Never true Do you have trouble paying for medicines?: No Do you have trouble getting transportation to medical appointments?: No Do you have trouble paying your heating and electricity bill?: No Do you have trouble taking care of your child, family member or friend?: No Do you have trouble with day-to-day activities such as bathing, preparing meals, shopping, managing finances, etc.?: No Are you currently unemployed and looking for a job?: No Are you interested in more education?: No Please select the resources that you would like help with: None THRIVE Score: 0 AUDIT C Alcohol Use Questionnaire (AUDIT-C) 1. How often do you have a drink containing alcohol?: Never 3. How often do you have six or more drinks on one occasion?: Never Total Score: 0 Score Reviewed/Action Taken: No JOSEP-7 AMB Questionnaire JOSEP-7 Date JOSEP - 7 assessed: 06/11/25 Feeling nervous, anxious, or on edge: 0 = Not at all Not being able to stop or control worryin = Not at all Worrying too much about different things: 0 = Not at all Trouble relaxin = Not at all Being so restless that it is hard to sit still: 0 = Not at all Becoming easily annoyed or irritable: 0 = Not at all Feeling afraid as if something awful might happen: 0 = Not at all Total JOSEP-7 score (0-4 normal; 5-9 mild; 10-14 moderate; 15-21 severe): 0 Source: Developed by Drs. Emery López, Parul Kasper, Elvin Moreno and colleagues, with an educational fredi from [employer]. JOSEP-7 Assessment Billing JOSEP-7 Assessment Tool: JOSEP-7 Assessment 02691 Review of Systems Const Details: - Gastrointestinal: Denies black or bloody stools, reports normal bowel movements. - Cardiovascular: Denies chest pain with ambulation. - Respiratory: Denies shortness of breath. - Genitourinary: Denies burning or blood in urine. - Neurological: Denies dizziness, reports a fall two weeks ago possibly due to low blood sugar, no loss of consciousness. All systems reviewed & are unremarkable except as noted in HPI and below Physical exam (Primary Care) Vital Signs: Last Vital Signs Temp 97.6 F 06/11/25 09:31 Pulse 66 06/11/25 09:31 Resp 16 06/11/25 09:31 BP 142/67 H 06/11/25 09:31 Pulse Ox 95 06/11/25 09:31 Oxygen Delivery Method Room Air 06/11/25 09:31 Care Plan Goal for BP management: <140/90 at Goal BMI result Body Mass Index 36.6 Tobacco/Smoking Status: Tobacco use Status Tobacco use date assessed 06/11/25 06/11/25 09:38 Patient Tobacco Use Status Never used Tobacco 06/11/25 09:38 PHQ-9: PHQ-9 Score PHQ-9: Total score 0 06/11/25 09:48 Depression Screening Interpretation: Negative Thrive Assessment: Date of Thrive Assessment Date Thrive assessed 06/11/25 06/11/25 09:38 Const Other: Appearance: Alert. Oriented X3. No acute distress. Head: Normal external exam. Normocephalic. Atraumatic. Eyes: Pupils are equal, round, and reactive to light. Extraocular movements intact. Conjunctiva and sclera normal. Eyelids normal. Throat: Pharynx normal. Uvula midline. Moist mucous membranes. Neck: Normal inspection. Neck supple. Full range of motion. Cardiovascular: Normal heart rate and rhythm. Heart sound normal. No murmurs noted. Pulses normal throughout. Respiratory: No respiratory distress. Painless inspiration. Breath sounds normal. No wheezes/rales/rhonchi noted. Chest nontender. No accessory muscle us age noted or decreased air movement noted. Abdomen: Soft and nontender. Bowel sounds normal in all 4 quadrants. No distention noted. No organomegaly noted. Back: Full range of motion noted. Skin: Skin warm and dry. Normal skin color. Normal skin turgor. No rashes/lesions/lacerations noted. Extremities: Peripheral edema noted. Venous ulcer to right lower extremity. No signs of acute infection. No calf tenderness is noted. Extremities exhibit normal range of motion. Extremities nontender. Neuro: Oriented X 3. No motor deficit. No sensory deficit. Reflexes normal. Results AMB Hemoglobin A1c AMB Hemoglobin A1c 6.4 % Last Edit by CARMELA Greenwood on 06/11/25 10:01 Results Reviewed Results Reviewed: - Labs: A1c 6.4, BUN 59, creatinine 1.6, GFR 40, chronic anemia, elevated white blood cell count. Coding Level of Care Code New Pt Level 4 (11829) Complex EM visit Add On G2211 Diagnoses Type 2 diabetes mellitus with hemoglobin A1c goal of less than 7.0% E11.9 CAD (coronary artery disease) I25.10 Peripheral edema R60.9 CKD stage 3b, GFR 30-44 ml/min N18.32 Chronic anemia D64.9 Venous ulcer of right leg I83.019; L97.919 Severe obesity with body mass index (BMI) of 36.0 to 36.9 with serious comorbidity E66.01; Z68.36 Additional Codes PHQ-9 - 77894 - PHQ-9 Billing: Yes ([id number]) JOSEP-7 Assessment Billing - JOSEP-7 Assessment Tool: JOSEP-7 Assessment 53662 ([id number]) Assessment & Plan Assessment & Plan (1) Type 2 diabetes mellitus with hemoglobin A1c goal of less than 7.0%: Code(s): E11.9 - Type 2 diabetes mellitus without complications Category: Medical Plan: The patient's diabetes is currently well-managed with Metformin and Actos, as evidenced by an A1c of 6.4. No changes to the current regimen were discussed, and the patient is advised to continue monitoring blood glucose levels regularly. (2) CAD (coronary artery disease): Code(s): I25.10 - Atherosclerotic heart disease of [place] coronary artery without angina pectoris Category: Medical Plan: The patient has a history of coronary artery disease with previous RCA PCI and moderate LAD disease managed medically. He is on Plavix and continues to have regular follow-ups with his reservations manager. No new symptoms were reported, and no changes to the current management plan were discussed. (3) Peripheral edema: Code(s): R60.9 - Edema, unspecified Category: Medical Plan: The patient has a history of coronary artery disease with previous RCA PCI and moderate LAD disease managed medically. He is on Plavix and continues to have regular follow-ups with his reservations manager. No new symptoms were reported, and no changes to the current management plan were discussed. (4) CKD stage 3b, GFR 30-44 ml/min: Code(s): N18.32 - Chronic kidney disease, stage 3b Category: Medical Plan: The patient is under the care of a batch and furnace operator for chronic kidney disease, with a BUN of 59, creatinine of 1.6, and GFR of 40. Continued monitoring and follow- up with the batch and furnace operator are recommended. (5) Chronic anemia: Code(s): D64.9 - Anemia, unspecified Category: Medical Plan: The patient has chronic anemia and elevated white blood cell count. Further evaluation and management were not discussed during this visit. (6) Venous ulcer of right leg: Code(s): I83.019 - Varicose veins of right lower extremity with ulcer of unspecified site; L97.919 - Non-pressure chronic ulcer of unspecified part of right lower leg with unspecified severity Category: Medical Plan: The patient has a venous ulcer on the right lower extremity, for which topical antibiotics are being used. He is advised to monitor the ulcer and consider visiting a wound clinic if it worsens. (7) Severe obesity with body mass index (BMI) of 36.0 to 36.9 with serious comorbidity: Code(s): E66.01 - Morbid (severe) obesity due to excess calories; Z68.36 - Body mass index [BMI] 36.0-36.9, adult Category: Medical Plan: Patient to improve diet and exercise regimen. Condition is chronic and stable will continue to monitor. Plan Plan Patient was informed and verbally consented to the use of an ambient scribe for clinic note documentation during this visit. 1. Type 2 Diabetes Mellitus The patient's diabetes is currently well-managed with Metformin and Actos, as evidenced by an A1c of 6.4. No changes to the current regimen were discussed, and the patient is advised to continue monitoring blood glucose levels regularly. 2. Coronary Artery Disease The patient has a history of coronary artery disease with previous RCA PCI and moderate LAD disease managed medically. He is on Plavix and continues to have regular follow-ups with his reservations manager. No new symptoms were reported, and no changes to the current management plan were discussed. 3. Peripheral Edema Peripheral edema is attributed to nifedipine use, with no clinical evidence of heart failure. The patient is advised to monitor for any worsening symptoms and report them if they occur. 4. Chronic Kidney Disease The patient is under the care of a batch and furnace operator for chronic kidney disease, with a BUN of 59, creatinine of 1.6, and GFR of 40. Continued monitoring and follow- up with the batch and furnace operator are recommended. 5. Chronic Anemia The patient has chronic anemia and elevated white blood cell count. Further evaluation and management were not discussed during this visit. 6. Venous Ulcer The patient has a venous ulcer on the right lower extremity, for which topical antibiotics are being used. He is advised to monitor the ulcer and consider visiting a wound clinic if it worsens. During the visit, I discussed the patient's current management of diabetes and coronary artery disease. We reviewed his medication regimen, including Metformin, Actos, and Plavix, and confirmed that his A1c is well-controlled at 6.4. I advised him to continue monitoring his blood glucose levels and to report any new symptoms. We also discussed his chronic kidney disease and the importance of follow-up with his batch and furnace operator. For his venous ulcer, I recommended monitoring and considering a wound clinic visit if it worsens. The patient was informed about the need for fasting before his next blood work and the importance of regular follow-ups. Orders: Orders Liver Panel Today Z00.00 - Encounter for general adult medical examination without abnormal findings Lipid Panel Today Z00.00 - Encounter for general adult medical examination without abnormal findings AMB Hemoglobin A1c Today E11.9 - Type 2 diabetes mellitus without complications Vitamin B12 and Folate Today Z00.00 - Encounter for general adult medical examination without abnormal findings PSA,Total (Free>4and<10) Today Z00.00 - Encounter for general adult medical examination without abnormal findings TSH reflex Free T4 Today Z00.00 - Encounter for general adult medical examination without abnormal findings Patient Instructions: - Continue taking Metformin and Actos as prescribed. - Monitor blood glucose levels regularly. - Report any new symptoms or changes in health. - Monitor the venous ulcer and seek care if it worsens. - Follow up with batch and furnace operator as scheduled. - Fast before next blood work appointment.
[2025-06-11 09:31] VITALS: BP 142/67; PULSE 66; RESP 16; TEMP 36.4; O2SAT 95; BMI 36.6
--- OUTSIDE RECORDS SUMMARY | 2025-06-11 09:52 | XMS_ITS | Patient Health Record ---
Author Organization [facility] Billy mohini GrewalJose Address [address] [place] [address] Care Team Providers Care Clerk Entry Level Name Role Phone Ash Tucker MD Primary Care Provider Unavailab monica ValverdeBirgit chang Unavailable [phone] Allergies No Known Allergies Results Component Value [...] CAPSULE BY MOUTH THREE TIMES A DAY Oral; Duration: 7 Not-Taking Simvastatin 20 MG 1 tablet [...] Administration Date Status Comme nts Influenza Unknown 01/05/2018 Refused Influenza Unknown 07/05/2018 Refused Influenza Unknown 10/04/2018 Refused Influenza Unknown 04/19/2020 Refused Influenza Unknown 04/28/2024 Refused COVID-19 Pfizer BioNTech Vaccine Unknown 04/04/2021 Administered Firs Dose: 050 05/2021 Social History Tobacco Use: Social History Observation [...] Problem Status W/U Status Risk Notes Problem Acquired hammer toe of right foot ([id number] ) Other hammer toe(s) (acquired), right foot (M20.41) Active confirmed Problem Acquired hammer toe of left foot ([id number] ) Other hammer toe(s) (acquired), left foot (M20.42) Active confirmed Problem Polyneuropathy due to type 2 diabetes mellitus (859522482) Type 2 diabetes mellitus with diabetic polyneuropathy (E11.42) Active confirmed Vital Signs Blood pressure diastolic 70 mm Hg 04/04/2025 Height 5ft9in in 04/04/2025 Blood pressure systolic 131 mm Hg 04/04/2025 Weight 240 lbs 04/04/2025 BMI 35.44 kg/m2 04/04/2025 Encounters Encounter Location Date Provider Diagnosis [address] [address] 07/28/2024 Birgit Sandoval Tinea unguium B35.1 and Type 2 diabetes mellitus with diabetic polyneuropathy E11.[address] [address] 10/27/2024 Birgit Sandoval Type 2 diabetes mellitus with diabetic polyneuropathy E11.42 ; Ingrown nail L60.0 and Tinea unguium B35.[address] [facility] [address] 01/19/2025 Birgit Sandoval Type 2 diabetes mellitus with diabetic polyneuropathy E11.42 ; Tinea unguium B35.1 ; Other hammer toe(s) (acquired), right foot M20.41 and Other hammer toe(s) (acquired), left foot M20.42 [facility] [place] [address] [place] [address] 04/04/2025 Birgit Sandoval Type 2 diabetes mellitus [...] toe(s) (acquired), right foot (ICD-10 - M20.41) 01/19/2025 Other hammer toe(s) (acquired), left foot (ICD-10 - M20.42) Plan Of Treatment Pending Test Test Name Order Date [id number] NAIL, 6 OR MORE 01/05/2018 [id number] NAIL, 6 OR MORE 04/01/2018 [id number] NAIL, 6 OR MORE 07/05/2018 [id number] NAIL, 6 OR MORE 10/04/2018 08648-Fssnyyti Plate 07/05/2018 [id number] SKIN LESIONS, OVER 4 07/05/20 18 18885-[id number] SKIN LESIONS, OVER 4 04/01/20 18 30174-DYEX SKIN LESIONS, OVER 4 01/05/20 18 77886-CHMY SKIN LESIONS, OVER 4 10/04/20 18 Next Appt Details Provider Name:Birgit chang, 07/06/2025 11:15:00 AM, [address] [place] [address], [phone], Insurance Providers Payer Name Payer Address Payer Phone Subscriber Number Group Number Insured Name Patient Relationship to Insured Coverage Start Date Coverage End Date Medicare [employer] [address] [place] [address] [id number] Juan Antonio Gaines Self - patient is the insured 4 Medical (General) History Medical History History ICD Code Diabetic type 2 High blood pressure Measles Surgical History Surgery Date(Month/Year) Stent x2 placed 05/2019
--- OUTSIDE RECORDS SUMMARY | 2025-06-11 09:52 | XMS_ITS | Patient Health Record ---
Author Organization [facility] Address [address] [place] [address] Care Team Providers Care Metal Finisher Name Role Phone Garrett (RETIRED) Ash PAZ Primary Care Provider Unavailable Frederick Davies Jr Unavailable Reason For Referral No Information Medications Medication SIG (Take, Route, Frequency, Duration) Notes Start Date End Date Status Simvastatin 20mg Act joon Lisinopril 10mg Acti ve glyBURIDE 10 mg Acti ve Nifedical XL 60 MG 1 tablet Orally Once a day Active Pioglitazone HCl Act joon Atenolol 100mg Activ e metFORMIN HCl 1000 MG Orally Active Colyte with Flavor Packs 240 GM As directed Orally Over the specified time. for 1 day(s) 08/13/2016 Active Aleve 220 MG Orally as needed Active Problems Problem Type SNOMED Code ICD Code Onset Dates Problem Status W/U Status Risk Notes Problem [id number] Rectal bleeding (K62.5) Active confirmed Problem [id number] Abnormal findings in stool (R19.5) Active confirmed Plan Of Treatment Future Test Test Name Order Date COLONOSCOPY 08/05/2012 COLONOSCOPY 08/13/2016 Insurance Providers Payer Name Payer Address Payer Phone Subscriber Number Group Number Insured Name Patient Relationship to Insured Coverage Start Date Coverage End Date [employer] OF [employer] [address] [place] [address] [phone] [id number] FERNANDES Self - patient is the insured Medical (General) History Medical History History ICD Code diabetes hypertension Denies ID,CVA,Lung disease,renal disease hypercholesterolemia
--- OUTSIDE RECORDS SUMMARY | 2025-06-11 09:52 | XMS_ITS | Clinical Summary ---
Author Organization [facility] Address [address] [place] [address] Phone Care Team Providers Care University Internship Name Role Phone Ash Tucker MD Primary Care Provider [phone] Allergies No known active allergies Medications glyBURIDE (DIABETA) 5 MG tablet 10 mg 4 Active lisinopril 20 MG tablet Take 20 mg by mouth in the morning and 20 mg in the evening. Active hydroCHLOROthia zide (HYDRODIURIL) 50 MG tablet Take 50 mg by mouth 1 (one) time each day 4 Active metoprolol succinate XL (TOPROL-XL) 100 MG 24 hr tablet Take 200 mg by mouth 1 (one) time each day 4 Active clopidogrel (PLAVIX) 75 MG tablet Take 75 mg by mouth 1 (one) time each day 4 Active ezetimibe (ZETIA) 10 MG tablet Take 10 mg by mouth 1 (one) time each day 4 Active isosorbide dinitrate (ISORDIL) 30 MG tablet Take 30 mg by mouth in the morning and 30 mg at noon and 30 mg in the evening and 30 mg before bedtime. Active pioglitazone (ACTOS) 30 MG tablet Take 30 mg by mouth 1 (one) time each day Active metFORMIN (FORTAMET) 1000 MG 24 hr tablet Take 1,000 mg by mouth 1 (one) time each day with dinner Do not crush, chew, or split. Active furosemide (LASIX) 20 MG tablet Take 20 mg by mouth in the morning and 20 mg in the evening. Active atorvastatin (LIPITOR) 80 MG tablet Take 80 mg by mouth 1 (one) time each day Active NIFEdipine CC (ADALAT CC) 60 MG 24 hr tablet Take 60 mg by mouth 1 (one) time each day before breakfast Do not crush, chew, or split. Active Active Problems Problem Noted Date Diagnosed Date Polyneuropathy due to type 2 diabetes mellitus 0 06/01/2024 Essential (primary) hypertension 06/01/2024 Stage 3b chronic kidney disease 06/01/2024 Type 2 diabetes mellitus wit h diabetic chronic kidney disease 06/01/2024 Renal osteodystrophy 06/01/2024 Immunizations Immunization Administration Dates Next Due Pfizer SARS-COV-2 04/04/2021 Family History Relation Status Comments Father Mother Social History Tobacco Use Types Packs/Day Years Used Date Smoking Tobacco: Never Smokeless Tobacco: Never Tobacco Cessation:Counseling Given: Not Answered Alcohol Use Standard Drinks/Week Comments Never 0 (1 standard drink = 0.6 oz pur e alcohol) Sex and Gender Information Value Date Recorded Sex Assigned at Not on file Legal Sex Male 9:16 AM EDT Gender Identity Not on file Sexual Orientation Not on file Last Filed Vital Signs Vital Sign Reading Time Taken Comments Blood Pressure 128/84 01/22/2025 1:00 PM EDT Pulse 76 01/22/2025 1:00 PM EDT Temperature - - Respiratory Rate - - Oxygen Saturation 95% 01/22/2025 1:00 PM EDT Inhaled Oxygen Concentration - - Weight 107 kg (235 lb 3.2 oz) 01/22/2025 1:00 PM EDT Height - - Body Mass Index - - Plan of Treatment Upcoming Encounters Date Type Department Care Team (Late st Contact Info) Description 10/18/2025 1:15 PM EST Office Visit [facility] [address] [place] [address] Melvin Becerra MD [address] [facility] [address] [place] [address] Health Maintenance Due Date Last Done Comments Pneumococcal Vaccine: 50+ Ye ars (1 of 2 - PCV) 01[birth year]28/1969 Diabetes: Hemoglobin A1C 06/01/2024 Diabetes: Ophthalmology Exam 06/01/2024 Diabetes: Pedal Pulse Checked 06/01/2024 Diabetes: Sensory Foot Exam 06/01/2024 Diabetes: Visual Foot Exam 06/01/2024 Influenza Vaccine (#1) 2025 Hepatitis B Vaccine Aged Out No longe r eligible based on patient's age to complete this topic Insurance Medicare Medicare Care Teams University Internship Relationship Specialty Start Date End Date Ash Tucker MD [address] [place] [address] [place] PCP - General Internal Medicine 05/18/24
[2025-06-11 10:12] VITALS: BP 136/61
== END 2025-06-11 10:06 | disposition home or self-care (01) ==
LOC: HO.HMCSH 09:24
PROVIDERS: PCP Internal Medicine; Visit Provider Physician Assistant Medical
DX: E11.9 Type 2 diabetes mellitus without complications (principal); I25.10 Atherosclerotic heart disease of native coronary artery without angina pectoris; R60.9 Edema, unspecified; N18.32 Chronic kidney disease, stage 3b; D64.9 Anemia, unspecified; I83.019 Varicose veins of right lower extremity with ulcer of unspecified site; L97.919 Non-pressure chronic ulcer of unspecified part of right lower leg with unspecified severity; E66.01 Morbid (severe) obesity due to excess calories; Z68.36 Body mass index [BMI] 36.0-36.9, adult

== ENCOUNTER → 2025-06-11 09:24 | Outpatient (BNVA) | payer MEDICARE, SELFPAY | PROVIDERS: PCP Internal Medicine; Visit Provider Physician Assistant Medical | DX: E11.9 Type 2 diabetes mellitus without complications (principal); I25.10 Atherosclerotic heart disease of native coronary artery without angina pectoris; R60.9 Edema, unspecified; N18.32 Chronic kidney disease, stage 3b; D64.9 Anemia, unspecified; I83.019 Varicose veins of right lower extremity with ulcer of unspecified site; L97.919 Non-pressure chronic ulcer of unspecified part of right lower leg with unspecified severity; E66.01 Morbid (severe) obesity due to excess calories; Z68.36 Body mass index [BMI] 36.0-36.9, adult; Z71.3 Dietary counseling and surveillance | CPT/HCPCS: 83036; 96127; 99202 ==

== ENCOUNTER 2025-10-13 09:32 | Outpatient (REF) | payer MEDICARE, SELFPAY ==
--- OUTSIDE RECORDS SUMMARY | 2025-10-13 09:35 | XMS_ITS | Clinical Summary ---
Author Organization [facility] Address [address] [place] [address] Phone Care Team Providers Care Director Of Environmental Services Name Role Phone Ash Tucker MD Primary Care Provider [phone] Allergies No known active allergies Medications glyBURIDE [...] chronic kidney disease 06/01/2024 Renal osteodystrophy 06/01/2024 Encounters Date Type Department Care Team Description 09/24/2025 Orders Only [facility] [address] [place] [address] Melvin Becerra MD Stage 3b chronic kidney disease (HCC); Renal osteodystrophy; Essential (primary) hypertension from Last 3 Months Immunizations Immunization Administration Dates Next Due Pfizer [...] Visit [facility] [address] [place] [address] Melvin Becerra MD [address] [facility] [address] [place] [address] Health Maintenance Due Date Last [...] this topic Insurance Medicare Medicare Care Teams Director Of Environmental Services Relationship Specialty Start Date End Date Ash Tucker MD [address] [place] [address] PCP - General Internal Medicine 05/18/24
[2025-10-13 10:01] LABS: MANUAL DIFF FLAG NO
[2025-10-13 10:06] LABS: Hematocrit 37.6 % (42.0-52.0); Hemoglobin 12.0 g/dl (14.0-18.0); Imm Gran Abs Auto 0.05 X10*3/uL (0.00-0.03); Imm Gran Pct Auto 0.4 % (0.0-0.4); Lymphocytes Absolute Auto 1.6 X10*3/uL (1.2-4.9); Mean Corpuscular HGB Conc 31.9 g/dl (31.0-36.0); Mean Corpuscular Hemoglobin 29.1 pg (27.0-33.0); Mean Corpuscular Volume 91.0 fL (80.0-98.0); NRBC Abs Auto 0.000 X10*3/uL (0.0-0.012); NRBC Pct Auto 0.0 /100WBC (0.0-0.2); Platelet Count 311 X10*3/uL (160-400); Red Blood Count 4.13 X10*6/uL (4.60-5.80); White Blood Count 13.5 X10*3/uL (4.8-10.8)
[2025-10-13 10:27] LABS: Albumin Level 4.2 g/dL (3.5-5.0); Anion Gap 14 (12-20); Blood Urea Nitrogen 55 mg/dL (9-16); Calcium 9.3 mg/dL (8.4-10.2); Carbon Dioxide 23 mmol/L (22-29); Chloride 109 mmol/L (96-108); Magnesium 2.1 mg/dL (1.6-2.6); Potassium 4.9 mmol/L (3.3-5.1); Sodium 141 mmol/L (135-145)
[2025-10-13 10:29] LABS: Parathyroid Hormone Intact 66.8 pg/mL (8.7-77.1)
== END 2025-10-13 09:33 | disposition home or self-care (01) ==
LOC: HO.LAB 09:32
PROVIDERS: PCP Internal Medicine; Visit Provider Internal Medicine Nephrology
DX: I12.9 Hypertensive chronic kidney disease with stage 1 through stage 4 chronic kidney disease, or unspecified chronic kidney disease (principal); N18.32 Chronic kidney disease, stage 3b; N25.0 Renal osteodystrophy
CPT/HCPCS: 36415; 80069; 82306; 83735; 83970; 85025

== ENCOUNTER 2025-10-17 14:27 | Outpatient (REF) | payer MEDICARE, SELFPAY ==
--- OUTSIDE RECORDS SUMMARY | 2025-06-27 06:00 | XMS_ITS ---
[facility] Address [address] [place] [address] Care Team Providers Care Foil Spinner Name Role Phone Keegan Miller Primary Care Provider [phone] Birgit Sandoval [phone] [place] Encounters Encounter Location Date Provider Diagnosis [address] [address] 06/27/2025 Birgit Sandoval Plan Of Treatment Next Appt Details Provider Name:Birgit chang, 03/26/2026 11:00:00 AM, [address] [place], [address], Progress Notes * Juan Antonio FERNANDESDOB:[birth year] (75 yo M)Acc No.[id number]:06/27/2025 Progress Note Patient: Chip ORELLANAlas Provider: Alexandru Sandoval DPM :1950 A ge:75 Y S ex:Male Date:06/27/2025 Address:[address] [id number] Pcp:Keegan Miller Subjective: * Chief Complaints: * [address] [facility]. * Medical History: Objective: * Vitals: Assessment: Plan: * Treatment: * Images: * The named appointment provid er may or may not be the originator of this progress note, and it is not deemed complete until electronically signed by the appointment provider. Sign off status: Pending * Provider: Alexandru Sandoval DPM Date: 0 06/27/2025 Generated for Ann Nguyen on: 1 12/18/2024 10:43 PM EST
--- OUTSIDE RECORDS SUMMARY | 2025-10-16 06:00 | XMS_ITS ---
Author Organization [facility] [address] [place] Address [address] [place] [address] Care Team Providers Care Hat Forming Machine Operator Name Role Phone PaulFadyKeegan Primary Care Provider Birgit Sandoval Unavailable [phone] Allergies No Known Allergies REASON FOR VISIT At Risk Footcare, Painful Nail(s) aggrevated by shoes and causing difficulty standing/walking, Toe Irritation Medications Medication SIG (Take, Route, Frequency, Duration) Notes Start Date End Date Status Extra Depth Orthopedic Shoes (1 Pair) with Customized Heat Molded Multidensity Innersoles (3 Pair) as directed Dx: NIDDM/Polyneuropathy (E11.42), Hammertoe Foot Deformity (M20.41,M20.42), Preulcerative Skin Lesion(s) (L85.1 01/05/2018 Active metFORMIN HCl 1000 MG 1 tablet with meal s Orally Twice a day Active Lisinopril 10 MG 1 tablet Orally twic e a day Active Nifedical XL 60 MG 1 tablet Orally Once a day Active glyBURIDE 10mg twice a day Act joon Ezetimibe 10 MG 1 tablet Orally Once a day Active Pioglitazone HCl 30 MG 1 tablet Orally O nce a day Active Atorvastatin Calcium 80 MG 1 tablet Oral ly Once a day Active Atenolol 100 MG 1 tablet Orally Once a day Active hydroCHLOROthiazide 50 MG 1 tablet in th e morning Orally Once a day Active Simvastatin 20 MG 1 tablet in the evening Orally Once a day Active Cephalexin 500 MG TAKE ONE CAPSULE BY MOUTH THREE TIMES A DAY Oral; Duration: 7 Not-Taking Immunizations Vaccine Route Administration Date Status Comme nts Influenza Unknown 10/16/2025 Refused Social History Tobacco Use: Social History Observation Description Date Details (start date - stop date) Never Smoker NA - NA Tobacco use other than smoking: Question Answer Notes Are you an other tobacco user? No Tobacco Control (Standard) Question Answer Notes Tobacco use: Nonsmoker Additional Findings: Tobacco non-user Current no nsmoker AUDIT-C (Standard) Question Answer Notes Did you have a drink containing alcohol in the p ast year? No Points 0 Interpretation Negative Vital Signs Height 5ft9in in 10/16/2025 Weight 240 lbs 10/16/2025 BMI 35.44 kg/m2 10/16/2025 Blood pressure systolic 130 mm Hg 10/16/20 25 Blood pressure diastolic 65 mm Hg 025 Encounters Encounter Location Date Provider Diagnosis [facility] [place] [address] [place] [address] 10/16/2025 Birgit Sandoval Type 2 diabetes mellitus with diabetic polyneuropathy E11.42 ; Other hammer toe(s) (acquired), right foot M20.41 ; Tinea unguium B35.1 and Other hammer toe(s) (acquired), left foot M20.42 Assessments Encounter Date Diagnosis (ICD Code) Assessment Notes Treatment Notes Treatment Clinical Notes Section Notes 10/16/2025 Type 2 diabetes mellitus with diabetic polyneuropathy (ICD-10 - E11.42) 10/16/2025 Other hammer toe(s) (acquired), right foot (ICD-10 - M20.41) Patient Educated with: DIABETIC FOOT CARE INSTRUCTIONS. pdf (DIABETIC FOOT CARE INSTRUCTIONS. pdf) 10/16/2025 Tinea unguium (ICD-10 - B35.1) 10/16/2025 Other hammer toe(s) (acquired), left foot (ICD-10 - M20.42) Plan Of Treatment Treatment Notes Assessment Notes Other hammer toe(s) (acquired), right fo ot Patient Educated with: DIABETIC FOOT CARE INSTRUCTIONS.pdf (DIABETIC FOOT CARE INSTRUCTIONS.pdf) Next Appt Details Follow Up: 4 Months, Reason: Provider Name:Birgit chang, 03/26/2026 11:00:00 AM, [address] [place], [address], Procedure Notes * Category Sub-Category Detail Notes Debride Nail 6-10 Nail debridement Due to the cl inical pathology outlined in the exam findings, performance of this nail treatment is medically necessary as its management by an unskilled/untrained nonprofessional would put this patients foot and overall health at risk. Therefore, debridement to affected nail(s), as described in exam ( TA, T1, T2, T3, T4, T5, T6, T7, T8, T9, ), was performed exclusively by the physician of record to reduce/remove overall nail length, girth, thickness, subungual debris, and necrotic tissue, by manual and/or electrical means through the use of a nail nipper and/or dremel-type grinder chipper, to a more viable healthy nail plate [...] to maintain effectiveness in symptomatic relief - 84450 Keratoma Treatment Parring or Cutting o f Benign Hyperkeratotic Lesion(s) (-56) 2-4 Lesions - Due to the at risk nature of the patients medical condition as documented in the exam findings, performance of this keratoderma treatment is medically necessary as its management by an unskilled/untrained nonprofessional would put this patients foot and overall health at risk. Therefore, the benign hyperkeratotic lesions, (2) in total, locations as stated and described in the exam ( , Medial plantar, IPJ, , TA, T5), were pared, and/or cut utilizing a sterile 15 blade, tissue nippers, and/or power dremel instrumentation by the physician of record - 25601 Progress Notes * DENA ChipsushmaDOB:[birth year] (75 yo M)Acc No.[id number]:10/16/2025 Progress Note Patient: Juan Antonio ORELLANA Provider: Alexandru Sandoval DPM :1950 A ge:75 Y S ex:Male Date:10/16/2025 Address:[address] [id number] Pcp:Keegan Miller Subjective: * Chief Complaints: * A t Risk FootcarePainful Nail(s) aggrevated by shoes and causing difficulty standing/walkingToe Irritation * HPI: A t Risk footcare: Pt States Last PCP Visit: D ate 0 06/19/2025 T oe pain: Location: B /L feet. Duration: s everal years. Course: w orse. Aggravated by: s hoes, any pressure. Treatments: c hange in shoes. * ROS: G eneral/Constitutional: Nausea d enies. V omiting d enies. H mere Thirst d enies. L oss appetite d enies. C hills d enies. F atigue d enies.?Fever d enies. N ight Sweats d enies. U nexplained weight loss d enies. U nexplained weight gain d enies. H EENTM: Dentures d enies. D izziness d enies. G lasses/contacts d enies. R etinopathy d enies. B lurred/double vision d enies. T MJ?denies. D ischarge/drainage d enies. I mplants d enies. S ore throat d enies. D ental implants d enies. H kylah of hearing d enies. D ifficulty chewing/swallowing/speaking d enies. N ose bleeds d enies. S ore mouth d enies. ? R espiratory: On Oxygen d enies. P neumonia/pleurisy d enies.?Bronchitis d enies. E mphysema d enies. C oughing d enies. C ough blood?denies. S hortness of breath d enies. W heezing d enies. C ardiovascular: Pacemaker d enies. M JAVA ENTERPRISE ARCHITECT d enies. W PW d enies. C HF d enies. H eart attack d enies. S eptal defect d enies. R apid beat d enies. C hest pain d enies. A trial Fib. d enies. M urmur/Palpitations d enies. G astrointestinal: Hemorrhoids d enies. S tomach/Abdominal pain d enies. D ark blood stool d enies. I rritable bowel d enies. C onstipation d enies. D iarrhea d enies. H ematology: Swelling a dmits. C lots d enies. V aricose Veins d enies. B ruising d enies. B leeding problem d enies. G enitourinary: Blood urine d enies. F requent/Painfu/urination/bladder control d enies. K idney stones d enies. I nfection (UTI) d enies. N ephropathy d enies. s ex trans dis (STD) d enies. P rostate d enies. M usculoskeletal: Hammertoes d enies. B unions d enies. B ack Pain d enies. M uscle Cramps/ Resting d enies. M uscle cramps / walking d enies.?Generalized aches and pains a dmits. W eakness d enies. I nteg.: Nicholson d enies. S cars d enies. C orns/calluses?denies. I ngrown nails a dmits. P ainful nails d enies. O pen Sores d enies. R ashes d enies. N eurologic: Difficulty sleeping d enies. B rain disorder d enies. N umbness d enies. B alance trouble d enies. C onfusion d enies. F ainting/blackouts d enies. T ingling d enies. T remors d enies. * Medical History: * Surgical History: S tent x2 placed 05/2019 * Hospitalization/Major Diagno stic Procedure: D enies Past Hospitalization * Family History: M other: , diagnosed with Unspecified essential hypertension. F ather: , diagnosed with Other malignant neoplasm of unspecified site. * Social History: T obacco Use: T obacco use other than smoking A re you an other tobacco user? N o Tobacco Control (Standard) T obacco use: N onsmoker A dditional Findings: Tobacco non-user C urrent nonsmoker D rugs/Alcohol: D rugs H ave you used drugs other than those for medical reasons in the past 12 months? N o M iscellaneous: C affeine: yes, frequency: Soda , 2-3 cups per day. Children: no. Exercise: yes, work. Marital status: single. 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 D rug/Alcohol: A ROXANE-C (Standard) D id you have a drink containing alcohol in the past year? N o P oints 0 I nterpretation N egative * Medications: T akingEzetimibe 10 MG Tablet 1 tablet Orally Once [...] reviewed and reconciled with the patient * Allergies: N .K.D.A.yes[Allergies Verified] Objective: * Vitals: H t: 5ft9in, Wt:240, BMI: 35.44, Shoe size:11.5, BP:130/65mm Hg, BS:110, Ht-cm: 175.26 cm, Wt-k.86 kg. * P ast Orders: L ab:HEMOGLOBIN A1C (GLYCOHEMOGLOBIN) (Order Date - 11/08/2024) (Collection Date & Time - 11/08/2024 09:02 AM) Value Reference Range HEMOGLOBIN A1C % (HH) 6.7 * Examination: O phthalmology Referral: DIABETES EYE EXAM P rocedure Performed: Y es D ate of Exam Performed 0 05/22/2025 D iabetic Retinopathy Screening: Y es F indings of Diabetic Eye Exam: n o retinopathy N eurological: SENSORY: , (Neuro) Neurological exam demonstrates a loss of protective sensation by an absence of tested sensitivity to 5.07 [place]Luz monofilament at 2 or more sites out of 5 total locations, each foot. N ails: NAILS are: E longated, overgrown, dystrophic, lytic, greater than 3mm thick, discolored and friable with crumbly malodorous subungual debris, with dull to no pain on palpation due to neuropathy, , TA, T1, T2, T3, T4, T5, T6, T7, T8, T9. D ermatologic: SKIN FINDINGS: , Skin exam reveals Keratotic lesion(s) located at, Medial plantar, IPJ, , TA, T5. O rthopedic: FOOT MORPHOLOGY: ( -) Charcot collapse/destruction noted at MTJ. DIGITAL DEFORMITIES: D igital contracture, PIPJ, 2-5 B/L, incompl-reducible to push-up test, no over, nor underlapping, t here is e vidence of shoe producing skin irritation. FOOTWEAR EVALUATION: w orn, non-supportive, shoe gear properties exacerbate patients complaints in relation to their foot/toe deformity. G eneral Examination: FOOT EXAM: L ower Extremity Neurological Exam performed:?Yes V isual exam of foot performed: Y es D ate 1 12/17/2024 S ensory testing performed: s ensations diminished P edal pulse taking performed: 2 + Footwear Evaluation F ootwear Evaluation performed: Y es Assessment: * Assessment: 1. O ther hammer toe(s) (acquired), right foot - M20.41 (Primary) S pecify :Chronic problem, Stable (1=3,2=4) 2 . T ype 2 diabetes mellitus with diabetic polyneuropathy - E11.42 3 . T inea unguium - B35.1 4 . O ther hammer toe(s) (acquired), left foot - M20.42 S pecify :Chronic problem, Stable (1=3,2=4) Plan: * Treatment: * Procedures: D ebride Nail 6-10: Nail debridement D ue to the clinical pathology outlined in the exam findings, performance of this nail treatment is medically necessary as its management by an unskilled/untrained nonprofessional would put this patients foot and overall health at risk. Therefore, debridement to affected nail(s), as described in exam ( TA, T1, T2, T3, T4, T5, T6, T7, T8, T9, ), was performed exclusively by the physician of record to reduce/remove overall nail length, girth, thickness, subungual debris, and necrotic tissue, by manual and/or electrical means through the use of a nail nipper and/or dremel- type grinder chipper, to a more viable healthy nail plate [...] to maintain effectiveness in symptomatic relief - 47859. K eratoma Treatment: Parring or Cutting of Benign Hyperkeratotic Lesion(s) ( -56) 2-4 Lesions - Due to the at risk nature of the patients medical condition as documented in the exam findings, performance of this keratoderma treatment is medically necessary as its management by an unskilled/untrained nonprofessional would put this patients foot and overall health at risk. Therefore, the benign hyperkeratotic lesions, (2) in total, locations as stated and described in the exam ( , M edial plantar, I PJ, , T A, T 5), were pared, and/or cut utilizing a sterile 15 blade, tissue nippers, and/or power dremel instrumentation by the physician of record - [id number]. * Immunizations: Influenza (Not administered - Refused: Patient decision) * Procedure Codes: 1 1721 DEBRIDE NAIL, 6 OR MORE, Modifiers: XS 60861 TRIM SKIN LESIONS, 2 TO 4, Modifiers: XS * Preventive Medicine: Counseling: D iscussion: - 13: Office or other outpatient visit for the evaluation and management of an established patient, which required a medically appropriate history and/or examination and LOW level of DECISION MAKING for: 1 STABLE ACUTE UNCOMPLICATED PROBLEM, 2 OR MORE MINOR PROBLEMS, OR 1 STABLE CHRONIC PROBLEM, THAT POSE(S) A LOW RISK FOR MORBIDITY/MORTALITY. The visit on the day of the encounter encompassed interpreting the data and educating the patient as to the nature of their condition, treatment options available according to their individual PMH, meds, allergies, and overall health/living conditions, as well as any potential risks or complications that may occur from a failure to adhere to, and participate in, the recommended course of therapy. The discussion included a complete verbal, and/or written explanation of the examination results, any x-rays taken, the proposed diagnosis, and outline of the treatment plan. A schedule for future care needs was also explained. The patient verbalized an understanding of the instructions at this time and agreed to be an active participant in their treatment. If the patient should think of any questions or concerns after the visit, I have encouraged the patient to call the office. A t Risk Diabetic/ASO/PVD Footcare: T he patient was advised against self nail/callus care due to inherent risks for infection, loss of limb/life given , diabetes, neuropathy. D igital Surgery: D igital surgery was discussed with the patient, We elected to try conservative treatment at the present time, due to the patients medical history and increased asssociated post-operative risks. D igital Treatment: H T- I explained to the patient the possible etiologies of Hammertoes, including genetics/foot type/shoegear/activity level/exercise routine and the risks/benefits of all the different treatment options for their pain including: No treatment at all, Rest, Ice, New/supportive/wider/deeper Shoegear, Digital Padding/Strapping/Taping/Bracing/Gel protective sleeves, Foot/Ankle AFO Bracing, Stretching exercises, Deep Tissue Massage, Arch support/shoe inserts with splay metatarsal padding, and Custom orthoses. I insisted that any digital devices be removed daily and not worn overnight for safety. The patient is to carefully examine the toes daily for any skin irritation while using any splinting or padding device. The advantages and disadvantages of each option were discussed and the patients questions re: shoegear, padding, custom vs prefabricated inserts, activity level, and consistency in home treatment regimens for optimal success were answered to their verbally confirmed satisfaction. Kathleen spence Gear Counseling: Kathleen SPENCE Rx - The patient was counseled in great detail on their muscoloskeletal foot and toe deformities which coincided with the dermatological presentations visualized on exam. We discussed how their deformities put the integrity of their feet at risk for potential pedal complications which makes the accomidative diabetic shoes and cutomizable inserts medically necessary. We discussed the different shoe and insert treatment types and options, as well as the important advantages for adhering to regularly wearing these accomidative devices daily. The patient was made aware of the fact that a failure to abide by these recommedations may be deleterious to their foot health as they are able to prevent many pedal complications such as skin irritation, skin ulceration, infection, and even loss of toe/foot/leg/or life. Time was also spent with the patient dispensing and discussing proper diabetic footcare techniques including daily skin moisturization, daily foot inspection for any interruption in skin integrity including open lesions, or sign of infection such as redness/malodor/drainage/swelling. Also discussed and recommended were procedures regarding daily shoe inspection for the presence of internal foreign bodies as well as any visualized irregular shoe or insert wear. Patient questions re: shoes, inserts, and self foot inspections were answered to their satisfaction as the patient verbally confirmed a full understanding of the above information. Patient DEFERS recommended Extra Depth Orthopedic pressure-accommodative shoes against medical advice. Screening/Special Tests: F all Risk Assessment: P erformed Screening: N o falls in the past year F ALLS: Screening for Future Fall Risk Have you had two or more falls in the past year? N o Have you had any falls with injury in the past year? N o * Follow Up: 4 Months * Images: * Sign off status: Completed true * Provider: Alexandru Sandoval, DPM Date: 12/17/2024 Generated for Ann blanchard/Lorna/Vikram on: 12/18/2024 10:43 PM EST History and Physical Notes * HPI (History of Present Illness) Category Sub-Category Detail Notes Category Not es Toe pain Location: B/L feet Duration: several years Course: worse Aggravated by: shoes, any pressure Treatments: change in shoes At Risk footcare Pt States Last PCP Visit: Date: 5 Examination Category Sub-Category Detail Notes Category Not es Neurological SENSORY: , (Neuro) Neurol ogical exam demonstrates a loss of protective sensation by an absence of tested sensitivity to 5.07 [place]uz monofilament at 2 or more sites out of 5 total locations, each foot Dermatologic SKIN FINDINGS: , Skin exam reve als Keratotic lesion(s) located at, Medial plantar, IPJ, , TA, T5 Orthopedic FOOT MORPHOLOGY: (-) Charcot col lapse/destruction noted at MTJ FOOTWEAR EVALUATION: worn, non-supportiv e, shoe gear properties exacerbate patients complaints in relation to their foot/toe deformity DIGITAL DEFORMITIES: Digital contracture , PIPJ, 2-5 B/L, incompl-reducible to push-up test, no over, nor underlapping, there is evidence of shoe producing skin irritation General Examination FOOT EXAM: Lower Extrem ity Neurological Exam performed:: Yes Visual exam of foot performed:: Yes Date: 10/16/2025 Sensory testing performed:: sensations d iminished Pedal pulse taking performed:: 2+ Footwear Evaluation Footwear Evaluation performe d:: Yes Ophthalmology Referral DIABETES EYE EXAM Procedure Perform ed:: Yes Date of Exam Performed: 05/22/2025 Diabetic Retinopathy Screening:: Yes Findings of Diabetic Eye Exam:: no retin opathy Nails NAILS are: Elongated, overg rown, dystrophic, lytic, greater than 3mm thick, discolored and friable with crumbly malodorous subungual debris, with dull to no pain on palpation due to neuropathy, , TA, T1, T2, T3, T4, T5, T6, T7, T8, T9
[2025-10-17 14:40] LABS: Appearance Urine Clear; Glucose Urine UA Negative (Negative); PH 6.0 (5.0-9.0); Specific Gravity - Urine 1.015 (1.005-1.025)
[2025-10-17 15:45] LABS: Microalbum/Creatinine Ratio Ur 12.5 ug/mg cr (<30); Total Protein Urine Random < 7 mg/dL (<12)
--- OUTSIDE RECORDS SUMMARY | 2025-10-17 22:42 | XMS_ITS | Patient Health Record ---
Author Organization [facility] Address [address] [place] [address] Care Team Providers Care General Office Worker Name Role Phone Garrett (RETIRED) Ash PAZ Primary Care Provider Unavailable Frederick Davies Jr Unavailable [phone] Reason For Referral No Information Medications Medication SIG (Take, Route, Frequency, Duration) Notes Start Date End Date Status Simvastatin 20mg Act joon Lisinopril 10mg Acti ve glyBURIDE 10 mg Acti ve Nifedical XL 60 MG Tablet Extended Release 24 Hour 1 tablet Orally Once a day Active Pioglitazone HCl Act joon Atenolol 100mg Activ e metFORMIN HCl 1000 MG Tablet Orally Active Colyte with Flavor Packs 240 GM Solution Reconstituted As directed Orally Over the specified time.; Duration: 1 day(s) 08/13/2016 Active Aleve 220 MG Tablet Orally as needed Active Social History Social History Additional Details Category Social Info Options Details Miscellaneous: Marital status: single 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 Problems Problem Type SNOMED Code ICD Code Onset Dates Problem Status W/U Status Risk Notes Problem Rectal bleeding (56361094) Rectal bleeding (K62.5) Active confirmed Problem Abnormal feces (984500469) Abnormal findings in stool (R19.5) Active confirmed Plan Of Treatment Future Test Test Name Order Date COLONOSCOPY 08/05/2012 COLONOSCOPY 08/13/2016 Insurance Providers Payer Name Payer Address Payer Phone Subscriber Number Group Number Insured Name Patient Relationship to Insured Coverage Start Date Coverage End Date MEDICARE OF [employer] [address] [place] [address] [phone] [id number] CR FERNANDES Self - patient is the insured Medical (General) History Medical History History ICD Code diabetes hypertension Denies VT,CVA,Lung disease,renal disease hypercholesterolemia
--- OUTSIDE RECORDS SUMMARY | 2025-10-17 22:43 | XMS_ITS | Patient Health Record ---
Author Organization [facility] Billy mohini Jose Address [address] [place] [address] Care Team Providers Care Supervisor Research Kennel Name Role Phone Paul, Kartik Primary Care Provider Birgit Sandoval Unavailable [phone] Allergies No Known Allergies Results Component Value [...] meal s Orally Twice a day Active Ezetimibe 10 MG 1 tablet Orally Once a day Active Simvastatin 20 MG 1 tablet in the evening Orally Once a day Active Lisinopril 10 MG 1 tablet Orally twic e a day Active Pioglitazone HCl 30 MG 1 tablet Orally O nce a day Active Nifedical XL 60 MG 1 tablet Orally Once a day Active glyBURIDE 10mg twice a day Act joon Atorvastatin Calcium 80 MG 1 tablet Oral ly Once a day Active Cephalexin 500 MG TAKE ONE CAPSULE BY MOUTH THREE TIMES A DAY Oral; Duration: 7 Not-Taking Atenolol 100 MG 1 tablet Orally Once a day Active hydroCHLOROthiazide 50 MG 1 tablet in th e morning Orally Once a day Active Immunizations Vaccine Route Administration Date Status Comme nts Influenza Unknown 01/05/2018 Refused Influenza Unknown 07/05/2018 Refused Influenza Unknown 10/04/2018 Refused Influenza Unknown 04/19/2020 Refused Influenza Unknown 04/28/2024 Refused Influenza Unknown 10/16/2025 Refused COVID-19 Pfizer BioNTech Vaccine Unknown 04/04/2021 [...] ast year? No Points 0 Interpretation Negative Problems Problem Type SNOMED Code ICD Code Onset Dates Problem Status W/U Status Risk Notes Problem Acquired hammer toe of right foot (1856861094405795 ) Other hammer toe(s) (acquired), right foot (M20.41) Active confirmed Problem Acquired hammer toe of left foot (9321711800607008 ) Other hammer toe(s) (acquired), left foot (M20.42) Active confirmed Problem Polyneuropathy due to type 2 diabetes mellitus (017143279) Type 2 diabetes mellitus with diabetic polyneuropathy (E11.42) Active confirmed Vital Signs Blood pressure diastolic 65 mm Hg 10/16/2025 Height 5ft9in in 10/16/2025 Blood pressure systolic 130 mm Hg 10/16/2025 Weight 240 lbs 10/16/2025 BMI 35.44 kg/m2 10/16/2025 Encounters Encounter Location Date Provider Diagnosis [facility] [address] 10/27/2024 Birgit Sandoval Type 2 diabetes mellitus with diabetic polyneuropathy E11.42 ; Ingrown nail L60.0 and [facility]ium B[facility] [address] 01/19/2025 Birgit Sandoval Type 2 diabetes mellitus with diabetic polyneuropathy E11.42 ; Tinea unguium B35.1 ; Other hammer toe(s) (acquired), right foot M20.41 and Other hammer toe(s) (acquired), left foot M20.[address] [address] 04/04/2025 Birgit Sandoval Type 2 diabetes mellitus with diabetic polyneuropathy E11.42 and Tinea unguium B35.[address] [address] 07/06/2025 Birgit Sandoval Type 2 diabetes mellitus with diabetic polyneuropathy E11.42 and Tinea unguium B35.[address] [address] 10/16/2025 Birgit Sandoval Type 2 diabetes mellitus [...] mellitus with diabetic polyneuropathy (ICD-10 - E11.42) 07/06/2025 Type 2 diabetes mellitus with diabetic polyneuropathy (ICD-10 - E11.42) 10/16/2025 Other hammer toe(s) (acquired), right foot (ICD-10 - M20.41) Patient Educated with: DIABETIC FOOT CARE INSTRUCTIONS. pdf (DIABETIC FOOT CARE INSTRUCTIONS. pdf) 10/16/2025 Type 2 diabetes mellitus with diabetic polyneuropathy (ICD-10 - E11.42) 10/16/2025 Tinea unguium (ICD-10 - B35.1) 10/27/2024 Tinea unguium (ICD-10 - B35.1) 07/06/2025 Tinea unguium (ICD-10 - B35.1) 01/19/2025 Other hammer toe(s) (acquired), right foot (ICD-10 - M20.41) 01/19/2025 Other hammer toe(s) (acquired), left foot (ICD-10 - M20.42) 10/16/2025 Other hammer toe(s) (acquired), left foot (ICD-10 - M20.42) Plan Of Treatment Pending Test Test Name Order Date [id number] NAIL, 6 OR MORE 01/05/2018 [id number] NAIL, 6 OR MORE 04/01/2018 [id number] NAIL, 6 OR MORE 07/05/2018 [id number] NAIL, 6 OR MORE 10/04/2018 [id number] Plate 07/05/2018 [id number] SKIN LESIONS, OVER 4 07/05/20 18 [id number] SKIN LESIONS, OVER 4 04/01/20 18 [id number] SKIN LESIONS, OVER 4 01/05/20 18 [id number] SKIN LESIONS, OVER 4 10/04/20 18 Next Appt Details Provider Name:Birgit chang, 03/26/2026 11:00:00 AM, [address] [place], [address], Insurance Providers Payer Name Payer Address Payer Phone Subscriber Number Group Number Insured Name Patient Relationship to Insured Coverage Start Date Coverage End Date Medicare [employer] [address] [facility] [place] [address] [id number] Juan Antonio Gaines Self - patient is the insured 4 Medical (General) History Medical History History ICD Code Diabetic type 2 High blood pressure Measles Surgical History Surgery Date(Month/Year) Stent x2 placed 05/2019
--- OUTSIDE RECORDS SUMMARY | 2025-10-17 22:43 | XMS_ITS ---
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 He has a history of precancerous growths, a history of previous basal cell carcinoma,a history of previous squamous cell carcinoma, and no family history of melanoma. He has no lesionsof concern today. Medications Medication Generic Name RxNorm Strength Strength Unit Route Dose Dose Form Frequency Date Started Date Ended Status Indication Sig erythromyci n erythrom ycin 856502 5 mg/gram (0.5 %) Ophtha lmic (eye) ointm ent 10/29/20 20 suspend ed Appl y twic e zoran y to affe cted area x 2 week s fluorouraci l fluorour acil 763771 5 % Topica l cream 04/10/20 22 suspend ed Appl y twic e zoran y to fore head ( biop sy site ) for 6 week s- site will beco me red, ida gamaliel and irri espinal d. Do not use to the poin t of disc omfo rt. ketoconazol e ketocona zole 149423 2 % Topica l shamp oo 12/19/19 21 suspend ed Sham poo 2-3 time s a week as need ed for scal p scal e mupirocin mupiroci n 196861 2 % Topica l ointm ent 06/18/20 20 suspend ed Appl y twic e a day to all biop sy site s unti l heal ed. mupirocin mupiroci n 263685 2 % Topica l ointm ent 05/21/20 23 suspend ed Appl y to woun d on arm once to twic e zoran y unti l heal ed. triamcinolo ne acetonide triamcin olone acetonid e 7804939 0.1 % Topica l APPLY THIN LAYER cream BID 03/12/20 23 active Appl y twic e zoran y to rash up to 2 week s/mo nth as need ed. Adult Low Dose Aspirin aspirin 81 mg Oral table t,del ayed relea se (DR/E C) suspend ed atorvastati n 80 mg Oral 1 table t QD active cephalexin cephalex in 984598 500 mg Oral capsu le 10/23/20 20 suspend ed Take 1 cap po twic e zoran y for 14 days with food and glas s of wate r. clopidogrel clopidog rel 75 mg Oral 1 table t QD active doxycycline hyclate doxycycl ine hyclate 9483999 100 mg Oral table t 10/29/20 20 suspend ed Take 1 tabl et twic e a day for 7 days with food and wate r doxycycline monohydrate doxycycl ine monohydr ate 8385636 100 mg Oral capsu le BID 11/05/20 20 suspend ed TAKE 1 CAPS ULE PO BID X 14 DAYS WITH FOOD AND A FULL GLAS S OF WATE R ezetimibe ezetimib e 10 mg Oral 1 table t QD active furosemide 20 mg Oral table t suspend ed furosemide furosemi de 20 mg Oral 1 table t QD active glyburide glyburid e 10 mg Oral 1 QD active hydrochloro thiazide hydrochl orothiaz kyleigh 50 mg Oral 1 table t QD active isosorbide mononitrate isosorbi de mononitr ate 30 mg Oral 1 Table t, Exten ded Relea se 24 hr QD active lisinopril lisinopr il 20 mg Oral 1 table t QD active metformin metformi n 1,000 mg Oral 1 table t QD active metoprolol succinate metoprol ol succinat e 100 mg Oral 1 Table t, Exten ded Relea se 24 hr QD active nifedipine nifedipi ne 60 mg Oral 1 table t, exten ded relea se QD active nifedipine nifedipi ne 30 mg Oral 1 table t, exten ded relea se QD active pioglitazon e pioglita zone 30 mg Oral 1 table t QD active Atenolol NULL 07/08/20 16 suspend ed GlyBURIDE NULL 07/08/20 16 suspend ed Lisinopril NULL 07/08/20 16 suspend ed MetFORMIN & Diet Manage Prod NULL 07/08/20 16 suspend ed Mupirocin NULL 07/08/20 16 suspend ed Nifedical XL NULL 07/08/20 16 suspend ed Pioglitazon e HCl NULL 07/08/20 16 suspend ed Simvastatin NULL 07/08/20 16 suspend ed Tylenol NULL 07/08/20 16 suspend ed Problems Problem Code Type Status Date of Diagnosis Date of Resolution Hypercholesterolemia (disorder) 55760785(S NOMED) Problem active Senile hyperkeratosis (disorder) 609160502( SNOMED) Diagnosis active 12/22/2017 Actinic keratosis (disorder) 634816801( SNOMED) Problem active Scar conditions and fibrosis of skin (disorder) 716020655( SNOMED) Diagnosis active 08/11/2016 Basal cell carcinoma of upper extremity (disorder) 559906373( SNOMED) Diagnosis active 07/30/2016 Disorder of skin and/or subcutaneous tissue (disorder) 58807252(S NOMED) Diagnosis active 07/22/2016 Neoplasm of uncertain behavior of skin (disorder) 09946292(S NOMED) Diagnosis active 07/08/2016 Neoplasm of uncertain behavior of skin D48.5(ICD- 10) Diagnosis active 06/18/2020 Actinic keratosis L57.0(ICD- 10) Diagnosis active 06/18/2020 Other melanin hyperpigmentation L81.4(ICD- 10) Diagnosis active 06/18/2020 Melanocytic nevi of trunk D22.5(ICD- 10) Diagnosis active 06/18/2020 Melanocytic nevi of left lower limb, including hip D22.72(ICD -10) Diagnosis active 06/18/2020 Melanocytic nevi of right lower limb, including hip D22.71(ICD -10) Diagnosis active 06/18/2020 Other rosacea L71.8(ICD- 10) Diagnosis active 06/18/2020 Other seborrheic keratosis L82.1(ICD- 10) Diagnosis active 06/18/2020 Hemangioma of skin and subcutaneous tissue D18.01(ICD -10) Diagnosis active 06/18/2020 Other seborrheic dermatitis L21.8(ICD- 10) Diagnosis active 06/18/2020 Venous insufficiency (chronic) (peripheral) I87.2(ICD- 10) Diagnosis active 06/18/2020 Localized edema R60.0(ICD- 10) Diagnosis active 06/18/2020 Tinea pedis B35.3(ICD- 10) Diagnosis active 06/18/2020 Tinea unguium B35.1(ICD- 10) Diagnosis active 06/18/2020 Personal history of other malignant neoplasm of skin Z85.828(IC D-10) Diagnosis active 06/18/2020 Family history of malignant neoplasm of other organs or systems Z80.8(ICD- 10) Diagnosis active 06/18/2020 Basal cell carcinoma of skin of nose C44.311(IC D-10) Diagnosis active 07/26/2020 Basal cell carcinoma of skin of nose C44.311(IC D-10) Diagnosis active 10/23/2020 Encounter for surgical aftercare following surgery on the skin and subcutaneous tissue Z48.817(IC D-10) Diagnosis active 11/05/2020 Encounter for surgical aftercare following surgery on the skin and subcutaneous tissue Z48.817(IC D-10) Diagnosis active 10/29/2020 Encounter for surgical aftercare following surgery on the skin and subcutaneous tissue Z48.817(IC D-10) Diagnosis active 11/12/2020 Encounter for surgical aftercare following surgery on the skin and subcutaneous tissue Z48.817(IC D-10) Diagnosis active 12/10/2020 Personal history of other malignant neoplasm of skin Z85.828(IC D-10) Diagnosis active 12/19/2020 Family history of malignant neoplasm of other organs or systems Z80.8(ICD- 10) Diagnosis active 12/19/2020 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, 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(ICD -10) Diagnosis active 12/19/2020 Actinic keratosis L57.0(ICD- 10) Diagnosis active 12/19/2020 Other seborrheic dermatitis L21.8(ICD- 10) Diagnosis active 12/19/2020 Psoriasis vulgaris L40.0(ICD- 10) Diagnosis active 12/19/2020 Melanocytic nevi of left upper limb, including shoulder D22.62(ICD -10) Diagnosis active 12/19/2020 Melanocytic nevi of right upper limb, including shoulder D22.61(ICD -10) Diagnosis active 12/19/2020 Melanocytic nevi of right lower limb, including hip D22.71(ICD -10) Diagnosis active 12/19/2020 Melanocytic nevi of left lower limb, including hip D22.72(ICD -10) Diagnosis active 12/19/2020 Other melanin hyperpigmentation L81.4(ICD- 10) Diagnosis active 12/19/2020 Furuncle of back [any part, except buttock and flank] L02.222(IC D-10) Diagnosis active 12/19/2020 Encounter for surgical aftercare following surgery on the skin and subcutaneous tissue Z48.817(IC D-10) Diagnosis active 01/14/2021 Surgical follow-up (finding) 045634885( SNOMED) Diagnosis active 03/04/2021 Neoplasm of uncertain behavior of skin (disorder) 90306097(S NOMED) Diagnosis active 01/20/2022 Actinic keratosis (disorder) 600886950( SNOMED) Diagnosis active 01/20/2022 History of malignant neoplasm of skin (situation) 590590119( SNOMED) Diagnosis active 01/20/2022 Family history of malignant neoplasm (situation) 011589387( SNOMED) Diagnosis active 01/20/2022 Seborrheic dermatitis (disorder) 63100886(S NOMED) Diagnosis active 01/20/2022 Psoriasis vulgaris (disorder) 487119652( SNOMED) Diagnosis active 01/20/2022 Melanocytic nevus of left upper limb (disorder) 5928784862 14071(SNOM ED) Diagnosis active 01/20/2022 Melanocytic nevus of right upper limb (disorder) 633849197( SNOMED) Diagnosis active 01/20/2022 Melanocytic nevus of lower limb (disorder) 213266564( SNOMED) Diagnosis active 01/20/2022 Melanocytic nevus of left lower limb (disorder) 1876046928 58066(SNOM ED) Diagnosis active 01/20/2022 Disorder of pigmentation (disorder) 572991723( SNOMED) Diagnosis active 01/20/2022 Rosacea (disorder) 081435205( SNOMED) Diagnosis active 01/20/2022 Neoplasm of uncertain behavior of skin (disorder) 52886292(S NOMED) Diagnosis active 04/02/2022 History of malignant neoplasm of skin (situation) 882814537( SNOMED) Diagnosis active 04/02/2022 Basal cell carcinoma of skin (disorder) 946002458( SNOMED) Diagnosis active 06/09/2022 Basal cell carcinoma of face (disorder) 805770570( SNOMED) Diagnosis active 06/09/2022 Carcinoma in situ of skin (disorder) 59644431(S NOMED) Diagnosis active 06/09/2022 Diabetes mellitus (disorder) 18832295(S NOMED) Problem active Increased blood pressure (finding) 30256978(S NOMED) Problem active Neoplasm of uncertain behavior of skin (disorder) 95432903(S NOMED) Diagnosis active 08/28/2022 Actinic keratosis (disorder) ( SNOMED) Diagnosis active 08/28/2022 Furuncle of buttock (disorder) 37798526(S NOMED) Diagnosis active 08/28/2022 Melanocytic nevus of right upper limb (disorder) 220823694( SNOMED) Diagnosis active 08/28/2022 Melanocytic nevus of trunk (disorder) 251041661( SNOMED) Diagnosis active 08/28/2022 Melanocytic nevus of skin (disorder) 814595060( SNOMED) Diagnosis active 08/28/2022 Seborrheic keratosis (disorder) 701284245( SNOMED) Diagnosis active 08/28/2022 Benign neoplasm of skin of left upper limb (disorder) 9214274058 589773(SNO MED) Diagnosis active 08/28/2022 Peripheral venous insufficiency (disorder) 60340476(S NOMED) Diagnosis active 08/28/2022 Disorder of pigmentation (disorder) 297304144( SNOMED) Diagnosis active 08/28/2022 Disorder of skin (disorder) 53499056(S NOMED) Diagnosis active 08/28/2022 Hemangioma of skin and subcutaneous tissue (disorder) 855976306( SNOMED) Diagnosis active 08/28/2022 History of malignant neoplasm of skin (situation) 016825898( SNOMED) Diagnosis active 08/28/2022 Neoplasm of uncertain behavior of skin (disorder) 45282727(S NOMED) Diagnosis active 03/12/2023 Basal cell carcinoma of face (disorder) 340120300( SNOMED) Diagnosis active 03/12/2023 Actinic keratosis (disorder) ( SNOMED) Diagnosis active 03/12/2023 Disorder of skin (disorder) 08632546(S NOMED) Diagnosis active 03/12/2023 Peripheral venous insufficiency (disorder) 60363434(S NOMED) Diagnosis active 03/12/2023 Melanocytic nevus of right upper limb (disorder) 978774703( SNOMED) Diagnosis active 03/12/2023 Melanocytic nevus of trunk (disorder) 376921376( SNOMED) Diagnosis active 03/12/2023 Melanocytic nevus of skin (disorder) 301009520( SNOMED) Diagnosis active 03/12/2023 Seborrheic keratosis (disorder) 826213998( SNOMED) Diagnosis active 03/12/2023 Benign neoplasm of skin of left upper limb (disorder) 5459573131 276450(SNO MED) Diagnosis active 03/12/2023 Disorder of pigmentation (disorder) 796164334( SNOMED) Diagnosis active 03/12/2023 Disorder of skin (disorder) 43381945(S NOMED) Diagnosis active 03/12/2023 Hemangioma of skin and subcutaneous tissue (disorder) 798486245( SNOMED) Diagnosis active 03/12/2023 History of malignant neoplasm of skin (situation) 423319163( SNOMED) Diagnosis active 03/12/2023 Basal cell carcinoma of skin (disorder) 464109307( SNOMED) Problem active Squamous cell carcinoma (disorder) 254352549( SNOMED) Problem active Basal cell carcinoma of face (disorder) 123709927( SNOMED) Diagnosis active 04/07/2023 Surgical follow-up (finding) 023128327( SNOMED) Diagnosis active 04/19/2023 Neoplasm of uncertain behavior of skin (disorder) 66759952(S NOMED) Diagnosis active 05/21/2023 Basal cell carcinoma of upper extremity (disorder) 296643582( SNOMED) Diagnosis active 05/21/2023 History of malignant neoplasm of skin (situation) 311110896( SNOMED) Diagnosis active 05/21/2023 Basal cell carcinoma of upper extremity (disorder) 324553680( SNOMED) Diagnosis active 07/09/2023 History of malignant neoplasm of skin (situation) 597926937( SNOMED) Diagnosis active 07/09/2023 Neoplasm of uncertain behavior of skin (disorder) 95425213(S NOMED) Diagnosis active 07/29/2023 Actinic keratosis (disorder) ( SNOMED) Diagnosis active 07/29/2023 Melanocytic nevus of right upper limb (disorder) 108916934( SNOMED) Diagnosis active 07/29/2023 Melanocytic nevus of trunk (disorder) 547320815( SNOMED) Diagnosis active 07/29/2023 Melanocytic nevus of skin (disorder) 557938077( SNOMED) Diagnosis active 07/29/2023 Onychomycosis caused by dermatophyte (disorder) 004837143( SNOMED) Diagnosis active 07/29/2023 Peripheral venous insufficiency (disorder) 71075274(S NOMED) Diagnosis active 07/29/2023 Seborrheic keratosis (disorder) 156453623( SNOMED) Diagnosis active 07/29/2023 Disorder of pigmentation (disorder) 558595204( SNOMED) Diagnosis active 07/29/2023 Disorder of skin (disorder) 91081451(S NOMED) Diagnosis active 07/29/2023 Hemangioma of skin and subcutaneous tissue (disorder) 668880366( SNOMED) Diagnosis active 07/29/2023 Chronic ulcer of skin (disorder) 41254277(S NOMED) Diagnosis active 07/29/2023 Scar conditions and fibrosis of skin (disorder) 990750716( SNOMED) Diagnosis active 07/29/2023 History of malignant neoplasm of skin (situation) 758242485( SNOMED) Diagnosis active 07/29/2023 Basal cell carcinoma of face (disorder) 127682232( SNOMED) Diagnosis active 10/14/2023 Actinic keratosis (disorder) ( SNOMED) Diagnosis active 10/14/2023 Neoplasm of uncertain behavior of skin (disorder) 70305380(S NOMED) Diagnosis active 01/31/2024 Actinic keratosis (disorder) ( SNOMED) Diagnosis active 01/31/2024 Melanocytic nevus of right upper limb (disorder) 531339596( SNOMED) Diagnosis active 01/31/2024 Melanocytic nevus of trunk (disorder) 657674009( SNOMED) Diagnosis active 01/31/2024 Melanocytic nevus of skin (disorder) 329153298( SNOMED) Diagnosis active 01/31/2024 Benign neoplasm of skin of left upper eyelid (disorder) 4661100232 9248418(SN OMED) Diagnosis active 01/31/2024 Peripheral venous insufficiency (disorder) 42354623(S NOMED) Diagnosis active 01/31/2024 Onychomycosis caused by dermatophyte (disorder) 027780672( SNOMED) Diagnosis active 01/31/2024 Seborrheic keratosis (disorder) 674004543( SNOMED) Diagnosis active 01/31/2024 Disorder of pigmentation (disorder) 743036297( SNOMED) Diagnosis active 01/31/2024 Disorder of skin (disorder) 17568111(S NOMED) Diagnosis active 01/31/2024 Hemangioma of skin and subcutaneous tissue (disorder) 425447356( SNOMED) Diagnosis active 01/31/2024 Superficial injury of lower leg (disorder) 787386761( SNOMED) Diagnosis active 01/31/2024 History of malignant neoplasm of skin (situation) 062624763( SNOMED) Diagnosis active 01/31/2024 Carcinoma in situ of skin of face (disorder) 67016750(S NOMED) Diagnosis active 05/08/2024 Neoplasm of uncertain behavior of skin (disorder) 88342691(S NOMED) Diagnosis active 09/04/2024 Actinic keratosis (disorder) 074571565( SNOMED) Diagnosis active 09/04/2024 Inflamed seborrheic keratosis (disorder) 912579877( SNOMED) Diagnosis active 09/04/2024 Acne (disorder) 95564554(S NOMED) Diagnosis active 09/04/2024 Melanocytic nevus of right upper limb (disorder) 239972555( SNOMED) Diagnosis active 09/04/2024 Melanocytic nevus of trunk (disorder) 156749714( SNOMED) Diagnosis active 09/04/2024 Melanocytic nevus of skin (disorder) 982401532( SNOMED) Diagnosis active 09/04/2024 Benign neoplasm of skin of left upper eyelid (disorder) 5759798256 7611548(SN OMED) Diagnosis active 09/04/2024 Peripheral venous insufficiency (disorder) 78714537(S NOMED) Diagnosis active 09/04/2024 Seborrheic keratosis (disorder) 111629080( SNOMED) Diagnosis active 09/04/2024 Disorder of pigmentation (disorder) 413768287( SNOMED) Diagnosis active 09/04/2024 Disorder of skin (disorder) 98095819(S NOMED) Diagnosis active 09/04/2024 Hemangioma of skin and subcutaneous tissue (disorder) 774634044( SNOMED) Diagnosis active 09/04/2024 Onychomycosis caused by dermatophyte (disorder) 104987215( SNOMED) Diagnosis active 09/04/2024 History of malignant neoplasm of skin (situation) 011143669( SNOMED) Diagnosis active 09/04/2024 Basal cell carcinoma of face (disorder) 158818707( SNOMED) Diagnosis active 10/12/2024 Actinic keratosis (disorder) ( SNOMED) Diagnosis active 10/12/2024 Neoplasm of uncertain behavior of skin (disorder) 95802489(S NOMED) Diagnosis active 03/30/2025 Actinic keratosis (disorder) ( SNOMED) Diagnosis active 03/30/2025 Melanocytic nevus of right upper limb (disorder) 539042366( SNOMED) Diagnosis active 03/30/2025 Melanocytic nevus of trunk (disorder) 074467940( SNOMED) Diagnosis active 03/30/2025 Melanocytic nevus of skin (disorder) 371066204( SNOMED) Diagnosis active 03/30/2025 Seborrheic keratosis (disorder) 286508698( SNOMED) Diagnosis active 03/30/2025 Disorder of pigmentation (disorder) 413978866( SNOMED) Diagnosis active 03/30/2025 Disorder of skin (disorder) 36302687(S NOMED) Diagnosis active 03/30/2025 Papulosquamous dermatosis (disorder) 25989205(S NOMED) Diagnosis active 03/30/2025 Hemangioma of skin and subcutaneous tissue (disorder) 002533551( SNOMED) Diagnosis active 03/30/2025 History of malignant neoplasm of skin (situation) 475693382( SNOMED) Diagnosis active 03/30/2025 Basal cell carcinoma of upper extremity (disorder) 373861207( SNOMED) Diagnosis active 05/03/2025 Carcinoma of skin of head/neck (disorder) 223954376( SNOMED) Diagnosis active 05/03/2025 Dysplastic nevus of skin (disorder) 727111957( SNOMED) Problem active 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) 877535990( SNOMED) Diagnosis active 05/29/2025 Surgical follow-up (finding) 544538909( SNOMED) Diagnosis active 06/05/2025 Surgical follow-up (finding) 476770667( SNOMED) Diagnosis active 07/03/2025 Neoplasm of uncertain behavior of skin (disorder) 06390075(S NOMED) Diagnosis active 10/12/2025 Actinic keratosis (disorder) 065269288( SNOMED) Diagnosis active 10/12/2025 Eczema (disorder) 64049464(S NOMED) Diagnosis active 10/12/2025 Melanocytic nevus of right upper limb (disorder) 945311467( SNOMED) Diagnosis active 10/12/2025 Melanocytic nevus of trunk (disorder) 648674832( SNOMED) Diagnosis active 10/12/2025 Melanocytic nevus of skin (disorder) 433777576( SNOMED) Diagnosis active 10/12/2025 Seborrheic keratosis (disorder) 328761966( SNOMED) Diagnosis active 10/12/2025 Disorder of pigmentation (disorder) 936740091( SNOMED) Diagnosis active 10/12/2025 Disorder of skin (disorder) 49935606(S NOMED) Diagnosis active 10/12/2025 Hemangioma of skin and subcutaneous tissue (disorder) 700031256( SNOMED) Diagnosis active 10/12/2025 History of malignant neoplasm of skin (situation) 369042874( SNOMED) Diagnosis active 10/12/2025 Results No data Encounters Service provided at [address], [place], [place] [id number]. Office phonenumber is [phone]. Office fax number is [phone]. Encounter Diagnosis Location Date / Time Type Disc harge Status Actinic Keratoses (L57.0)Erosive Pustulosis of the Scalp (L30.8)Melanocytic Nevi (D22.61)Blue Nevus (D22.5,D22.4,D22.61)Seborrhei c Keratoses (L82.1)Lentigines (L81.4)Sebaceous Hyperplasia (L73.8)Martinez Angiomas (D18.01)History of non-melanoma skin cancer (Z85.828)Neoplasm of Uncertain Behavior (D48.5)Neoplasm of Uncertain Behavior (D48.5)Neoplasm of Uncertain Behavior (D48.5) [facility] 10/12/2025 19:45:00 UTC [id number] Reason For Referral No data Procedures Procedure Date Documentation of current medications (pr ocedure) 10/14/2025 12:00 am UTC Shave biopsy (procedure) 10/12/2025 12:0 0 am UTC Destruction of premalignant skin lesion (procedure) 10/12/2025 12:00 am UTC Documentation of current medications (pr ocedure) 07/10/2025 12:00 am UTC Documentation of current medications (pr ocedure) 06/13/2025 12:00 am UTC Documentation of current medications (pr ocedure) 05/31/2025 12:00 am UTC Mohs surgery (procedure) 05/29/2025 12:0 0 am UTC Documentation of current medications (pr ocedure) 05/03/2025 12:00 am UTC Tumor destruction (procedure) 05/03/2025 12:00 am UTC Destruction of premalignant skin lesion (procedure) 03/30/2025 12:00 am UTC Shave biopsy (procedure) 03/30/2025 12:0 0 am UTC Destruction of premalignant skin lesion (procedure) 10/12/2024 12:00 am UTC Tumor destruction (procedure) 10/12/2024 12:00 am UTC Shave biopsy (procedure) 09/04/2024 12:0 0 am UTC Destruction of premalignant skin lesion (procedure) 09/04/2024 12:00 am UTC Cryotherapy of skin lesion with liquid n itrogen (procedure) 09/04/2024 12:00 am UTC Tumor destruction (procedure) 05/08/2024 12:00 am UTC Shave biopsy (procedure) 01/31/2024 12:0 0 am UTC Destruction of premalignant skin lesion (procedure) 01/31/2024 12:00 am UTC Cryotherapy of skin lesion with liquid n itrogen (procedure) 10/14/2023 12:00 am UTC Tumor destruction (procedure) 10/14/2023 12:00 am UTC Cryotherapy of skin lesion with liquid n itrogen (procedure) 07/29/2023 12:00 am UTC Shave biopsy (procedure) 07/29/2023 12:0 0 am UTC Tumor destruction (procedure) 07/09/2023 12:00 am UTC Tumor destruction (procedure) 05/21/2023 12:00 am UTC Shave biopsy (procedure) 05/21/2023 12:0 0 am UTC Mohs surgery (procedure) 04/07/2023 12:0 0 am UTC Cryotherapy of skin lesion with liquid n itrogen (procedure) 03/12/2023 12:00 am UTC Shave biopsy (procedure) 03/12/2023 12:0 0 am UTC Cryotherapy of skin lesion with liquid n itrogen (procedure) 08/28/2022 12:00 am UTC Shave biopsy (procedure) 08/28/2022 12:0 0 am UTC Tumor destruction (procedure) 06/09/2022 12:00 am UTC Shave biopsy (procedure) 04/02/2022 12:0 0 am UTC Cryotherapy of skin lesion with liquid n itrogen (procedure) 01/20/2022 12:00 am UTC Tumor destruction (procedure) 12/19/2020 12:00 am UTC Cryotherapy of skin lesion with liquid n itrogen (procedure) 12/19/2020 12:00 am UTC Mohs surgery (procedure) 10/23/2020 12:0 0 am UTC Shave biopsy (procedure) 06/18/2020 12:0 0 am UTC Cryotherapy of skin lesion with liquid n itrogen (procedure) 06/18/2020 12:00 am UTC Documentation of past medical history (p rocedure) Documentation of past medical history (p rocedure) Documentation of past medical history (p rocedure) Documentation of past medical history (p rocedure) Documentation of past medical history (p rocedure) Documentation of past medical history (p rocedure) Documentation of past medical history (p rocedure) Documentation of past medical history (p rocedure) Documentation of past medical history (p rocedure) Documentation of past medical history (p rocedure) Documentation of past medical history (p rocedure) Documentation of past medical history (p rocedure) Documentation of past medical history (p rocedure) Documentation of past medical history (p rocedure) Documentation of past medical history (p rocedure) Documentation of past medical history (p rocedure) Documentation of past medical history (p rocedure) Documentation of past medical history (p rocedure) Documentation of past medical history (p rocedure) Documentation of past medical history (p rocedure) Documentation of past medical history (p rocedure) Documentation of past medical history (p rocedure) Documentation of past medical history (p rocedure) Documentation of past medical history (p rocedure) Documentation of past medical history (p rocedure) Documentation of past medical history (p rocedure) Documentation of past medical history (p rocedure) Documentation of past medical history (p rocedure) Documentation of past medical history (p rocedure) Documentation of past medical history (p rocedure) Documentation of past medical history (p rocedure) Documentation of past medica l history (procedure) 2 stents in the heart Review Of Systems Provider reviewed on Oct 12, 2025.A complete review of systems was performed.No Problems With Healing, No Problems With Scarring (hypertrophic Or Keloid), No Problems With Bleeding, No Immunosuppression, No Hay Fever, No Chest Pain, No Fever Or Chills, No Night Sweats, No Unintentional Weight Loss,No Thyroid Problems, No Sore Throat, No Blurry Vision, No Abdominal Pain, No Bloody Stool, No Bloody Urine, No Joint Aches, No Muscle Weakness, No Neck Stiffness, No Headaches, No Seizures, No Shortness Of Breath, No Wheezing, No Anxiety, And No Depression. 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 Start treatment with clobetasol. Reassess in 6 weeks..6.Melanocytic NeviCounseling7.Blue NevusCounseling8.Seborrheic KeratosesCounseling9.YdbqczwgvcComripevrp70.Sebaceous VcxaxidvbukRaikaicnll21.UvdyboVubvfdltDwkmyqkngt92.History of non-melanoma skin cancerCounseling Plan of Care Future visit for 03/29/2026 - Follow up in 6 months for: Skin Check Future visit for 11/23/2025 - Follow up in 6 weeks for: Focused Visit Code Detail Instructions 194070 clobetasol 0.05 % topical ointme nt Apply BID to scalp as directed [id number] mupirocin 2 % topical ointment A pply to wound on arm once to twice daily until healed. [id number] triamcinolone aceton kyleigh 0.1 % topical cream Apply twice daily to rash up to 2 weeks/month as needed. [id number] fluorouracil 5 % topical cream A pply twice daily to forehead ( biopsy site ) for 6 weeks- site will become red, crusted and irritated. Do not use to the point of discomfort. 697180 ketoconazole 2 % shampoo Shampoo 2-3 times a week as needed for scalp scale [id number] doxycycline hyclate 100 mg table t Take 1 tablet twice a day for 14 days with food and water 6453131 doxycycline hyclate 100 mg table t Take 1 tablet twice a day for 14 days with food and water 8805665 doxycycline monohydrate 100 mg c apsule TAKE 1 CAPSULE PO BID X 14 DAYS WITH FOOD AND A FULL GLASS OF WATER [id number] doxycycline hyclate 100 mg table t Take 1 tablet twice a day for 7 days with food and water 395040 erythromycin 5 mg/gr am (0.5 %) eye ointment Apply twice daily to affected area x 2 weeks 033524 cephalexin 500 mg capsule Take 1 cap po twice daily for 14 days with food and glass of water. 468205 mupirocin 2 % topical ointment A pply twice a day to all biopsy sites until healed. Instructions * I counseled the patient regarding the following:Actinic keratoses are precancerous growths that occur within sun damaged skin. If untreated, a small subset of actinic keratoses may develop into squamous cell carcinoma.Contact office if actinic keratoses fail to resolve despite treatment, or if you d evelop a side effect from therapy, such as unbearable crusting, scabbing, redness and tenderness.I recommended the following: Broad Spectrum Sunscreen SPF 30+ * I counseled the patient regarding the following:Expectations: Erosive pustulosis of the scalp is a poorly understood condition that occurs after trauma or excessive sun exposure to the scalp. Eruptions have been seen after photodynamic therapy.Contact office if: Patients with erosive pustulosis canbe at increased risk to develop non-melanoma skin cancers. If any new lesions develop that don't heal on their own, the patient should call the office. * Plan: Suspected. Start treatment with clobetasol. Reassess in 6 weeks. * I counseled the patient regarding the following:Advise self-skin checks every 1-2 months to monitorfor any changes in moles.Photoprotection reviewed in detail and encouraged. Reviewed signs/symptomsof skin cancer.Contact office if any moles change in size, shape or color, or become symptomatic including itching, burning, bleeding.I recommended the following: Broad Spectrum Sunscreen SPF 30+Self-Skin Exams * I counseled the patient regarding the following:Advise self-skin checks every 1-2 months to monitorfor any changes in moles.Photoprotection reviewed in detail and encouraged. Reviewed signs/symptomsof skin cancer.Contact office if any moles change in size, shape or color, or become symptomatic including itching, burning, bleeding.I recommended the following: Broad Spectrum Sunscreen SPF 30+ - Appropriate use of sunscreen and sun protective measures reviewed.Self-Skin Exams * I counseled the patient regarding the following:Seborrheic keratoses are banal. No treatment is necessary unless symptomatic. * I counseled the patient regarding the following:Photoprotection should be used to prevent development of further lentigines. Photoprotection was reviewed in detail and encouraged. * I counseled the patient regarding the following:Sebaceous hyperplasia is a banal prominence of sebaceous glands. No treatment is needed but electrodessication or laser can be used if treatment desired. * I counseled the patient regarding the following:Martinez angiomas are banal vascular growths. No treatment is necessary. * I counseled the patient regarding the following:Skin Care: Patients with a history of non-melanoma skin cancer should wear broad spectrum sunscreen and sun protective clothing.Expectations: Sites of treated skin cancers should be regularly monitored for any evidence of recurrence.Contact Office: Ifa treated site of prior skin cancer develops a new bump lesion, sore, discoloration, or other concerning change.I recommended the following: Broad Spectrum Sunscreen SPF 30+ Social History Code Activity Start Date End Date [id number] (SNOMED) Never smoker Sex Male Sexual orientation Unspecified Gender identity Unspecified Vital Signs No data Insurances Coverage Status Coverage Type Relationship to Subscriber Member Identifier Subscriber Identifier Group Identifier Payer Identifier Active 1 Self [id number]
--- OUTSIDE RECORDS SUMMARY | 2025-10-17 22:43 | XMS_ITS | Clinical Summary ---
Author Organization [facility] Address [address] [place] [address] Phone Care Team Providers Care Harvest Crew Supervisor Name Role Phone Ash Tucker MD Primary Care Provider [phone] Allergies No known active allergies Medications glyBURIDE [...] Only [facility] [address] [place] [address] Melvin Becerra [...] Visit [facility] [address] [place] [address] Melvin Becerra MD [address] [facility] [address] [place] [address] Health Maintenance Due Date Last [...] on patient's age to complete this topic Procedures Procedure Name Priority Date/Time Associated Diagnosis Comments ALBUMIN, URINE, RANDOM Routine 10/17/2025 2:31 PM EST URINALYSIS Routine 10/17/2025 2:31 PM EST PROTEIN / CREATININE RATIO, URINE Routine 10/17/2025 2:31 PM EST Stage 3b chronic kidney disease (HCC) Renal osteodystrophy Essential (primary) hypertension from Last 3 Months Results * Protein, Total, Random Urine w/Creatinine (Protein/Creat Ratio) (10/17/2025 2:31 PM EST) Protein Urine Random <7 <12 mg/dL See order comments Protein/Creatin ine Ratio, Urine TNP <0.2 See order comments Comment: Unable to calculate urine protein creatinine ratio due to low creatinine or protein result. Urine specimen (specimen) Urine specimen obtained by clean catch procedure / Unknown 10/17/2025 2:31 PM EST 10/17/2025 2:31 PM EST us Melvin Becerra MD LAB URINE ORDERABLES Final Re sult [place] See order comments [place] [address] * Albumin, urine, random (10/17/2025 2:31 PM EST) Creatinine, Urine 103.70 mg/dL Se e order comments Urine Microalbumin 13.0 mg/L See order comments Microalbumin/Crea tinine Ratio 12.5 <30 ug/mg cr See order comments Comment: Albumin/Creatinine Ratio Reference Ranges: Normal: < 30 ug/mg creatinine Microalbuminuria: 30 - 300 ug/mg creatinine Clinical Albuminuria: > 300 ug/mg creatinine 10/17/2025 2:31 PM EST 10/17/2025 2:31 PM EST Melvin Becerra MD LAB URINE ORDERABLES Final Re sult Performing Organization Address [place] Phone Number [facility] See order comments [place] [address] * Urinalysis (10/17/2025 2:31 PM EST) Color Urine Yellow See orde r comments Appearance Urine Clear See order comments pH Urine 6.0 5.0 - 9.0 See order comments Glucose Urine Negative Negative mg/dL See order comments Blood, Urine Negative Negative See ord er comments Specific [place] Urine 1.015 1.005 - 1.025 See order comments Protein Urine Negative Neg-Trace mg/dL See order comments Ketones, Urine Negative Negative mg/dL See order comments Nitrite, Urine Negative Negative See o rder comments Leukocyte Esterase Urine Negative Negative See order comments 10/17/2025 2:31 PM EST 10/17/2025 2:31 PM EST Melvin Becerra MD LAB URINE ORDERABLES Final Haven houser Performing Organization Address [place] de Phone Number [facility] See order comments [place] [address] from Last 3 Months [place] [id number] Care Teams Harvest Crew Supervisor Relationship Specialty Start Date End Date Ash Tucker MD [address] [place] [address] THOMAS BOLANOS [place] PCP - General Internal Medicine 05/18/24
== END 2025-10-17 14:28 | disposition home or self-care (01) ==
LOC: HO.LNP 14:27
PROVIDERS: Visit Provider Internal Medicine Nephrology
DX: I12.9 Hypertensive chronic kidney disease with stage 1 through stage 4 chronic kidney disease, or unspecified chronic kidney disease (principal); N18.32 Chronic kidney disease, stage 3b; N25.0 Renal osteodystrophy
CPT/HCPCS: 81003; 82043; 82570; 84156; 87086

== ENCOUNTER 2025-10-22 09:41 | Outpatient (AMB) | payer MEDICARE, SELFPAY ==
--- NOTE | 2025-10-22 09:45 | A.OFFPC_ITS ---
Vital Signs 10/22/25 09:57 Height 5 ft 7.32 in Weight 235 lb 0.4 oz BMI 36.5 BP 136/76 Blood Pressure Location Lt brachial Pulse 67 Pulse Source Pulse Oximeter Temp 97.3 F Pulse Oximetry (%) 95 Intake Visit Reasons: physical Intake Note: no issues Allergies No Known Allergies Allergy (Verified 10/22/25 10:43) Medication List - Last Reconciled 10/22/25 by Trice Chou PA-C atorvastatin 80 mg PO BEDTIME 90 days blood sugar diagnostic (FreeStyle Lite Strips) bid clopidogrel (Plavix) 75 mg PO DAILY ezetimibe 10 mg PO DAILY furosemide (Lasix) 20 mg PO DAILY hydrochlorothiazide 50 mg PO DAILY isosorbide mononitrate ER 30 mg PO DAILY lisinopril 20 mg PO BID metformin 1,000 mg PO BID metoprolol succinate ER 200 mg PO DAILY nifedipine ER 30 mg PO DAILY nifedipine ER 60 mg PO DAILY pioglitazone 30 mg PO DAILY Tobacco use date assessed: 06/11/25 Dental Screening Dental Screen Date: 10/22/25 Did you have a dental visit in the last 12 months?: Yes Did you have a dental problem in the last 6 months where you did not have access to dental care?: No Was dental information given to patient?: Patient has dentist HPI HPI Comments History of Present Illness Details History of Present Illness The patient is a 75 year old male presenting for a physical exam. 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 The patient has a history of type 2 diabetes mellitus, managed with metformin, Actos, and glyburide. His last hemoglobin A1c was 6.4% on June 11, 2025, and a recent value was 6.6%. He reports checking his blood sugar. The patient has chronic kidney disease and is followed by a community health nurse, Dr. Becerra, whom he saw last week. His creatinine has slightly worsened from 1.58 last year to 1.69 currently, with a GFR of 40. His BUN was 55, which is consistent with his baseline. He has a history of leg swelling, for which he takes Lasix 20 mg, and reports it is not too bad currently. The patient also is on medications for cholesterol and blood pressure, including atorvastatin, Plavix, Zetia, hydrochlorothiazide, i sosorbide mononitrate, lisinopril, metoprolol, and nifedipine. He denies needing any refills at this time. Recent lab work from last week showed a chronically elevated white blood cell count of 13,000, which is normal for him, and anemia (H&H 12.0), which is attributed to his chronic kidney disease. He denies black or bloody stools. Platelets, sodium, potassium, calcium, phosphorus, magnesium, and microalbumin were normal. He has low vitamin D and has been prescribed a supplement by his kidney doctor. He reports his last colonoscopy was a long time ago with Dr. Freire or Dr. Davies. He denies any recent falls or hospitalizations in the past year. The patient reports back pain that limits his ability to walk long distances, but he does not use a walker or cane. Social History - Smoking History: Denies ever smoking. - Functional Status: The patient is inde pendent with his activities of daily living, including cooking, cleaning, and laundry. - Social Support: He does not receive an y nursing or [employer] services and does not feel he needs them. - Living Situation: The patient is not m arried and has no children. - Travel: He travels to [place] with his brother and they recently purchased a mobile home in [facility]. - Diet: He tries to eat right. - Exercise: He reports he walks a lot. [facility] Medical History (Updated 10/22/25 @ 10:47 by Trice Chou PA-C) Healthcare maintenance Severe obesity with body mass index (BMI) of 36.0 to 36.9 with serious comorbidity Venous ulcer of right leg Chronic anemia CKD stage 3b, GFR 30-44 ml/min Type 2 diabetes mellitus with hemoglobin A1c goal of less than 7.0% Surgical History History of cardiac cath Family History Mother Skin cancer Father Skin cancer Social History Housing: House Alcohol intake: current Alcohol intake frequency: does not drink Patient Tobacco Use Status: Never used Tobacco service: No Current occupational status: employed Cognitive needs: No Hearing needs: No Vision needs: No Questionnaire PHQ-9 Over the last 2 weeks, how often have you been bothered by any of the following problems? 1. Little interest or pleasure in doing things: not at all 2. Feeling down, depressed, or hopeless: not at all 3. Trouble falling or staying asleep, or sleeping too much: not at all 4. Feeling tired or having little energy: not at all 5. Poor appetite or overeating: not at all 6. Feeling bad about yourself - or that you are a failure or have let yourself or your family down: not at all 7. Trouble concentrating on things, such as reading the newspaper or watching television: not at all 8. Moving or speaking so slowly that other people could have noticed. Or the opposite - being so fidgety or restless that you have been moving around a lot more than usual: not at all 9. Thoughts that you would be better off or of hurting yourself in some way: not at all Total score: 0 Depression Screening Interpretation: Negative Depression Screening Done: Yes 50560 - PHQ-9 Billing: Yes Source: Developed by Drs. Emery López, Parul Kasper, Elvin Moreno and colleagues, with an educational fredi from [employer]. Thrive Questionnaire Date Thrive assessed: 06/11/25 I am a: Patient What is your living situation today?: I have a steady place to live Within the past 12 months, did the food you bought not last and you didn't have the money to get more?: Never true Within the past 12 months, did you worry whether your food would run out before you got money to buy more?: Never true Do you have trouble paying for medicines?: No Do you have trouble getting transportation to medical appointments?: No Do you have trouble paying your heating and electricity bill?: No Do you have trouble taking care of your child, family member or friend?: No Do you have trouble with day-to-day activities such as bathing, preparing meals, shopping, managing finances, etc.?: No Are you currently unemployed and looking for a job?: No Are you interested in more education?: No Please select the resources that you would like help with: None THRIVE Score: 0 AUDIT C Alcohol Use Questionnaire (AUDIT-C) 1. How often do you have a drink containing alcohol?: Never 3. How often do you have six or more drinks on one occasion?: Never Total Score: 0 Score Reviewed/Action Taken: No JOSEP-7 AMB Questionnaire JOSEP-7 Date JOSEP - 7 assessed: 06/11/25 Feeling nervous, anxious, or on edge: 0 = Not at all Not being able to stop or control worryin = Not at all Worrying too much about different things: 0 = Not at all Trouble relaxin = Not at all Being so restless that it is hard to sit still: 0 = Not at all Becoming easily annoyed or irritable: 0 = Not at all Feeling afraid as if something awful might happen: 0 = Not at all Total JOSEP-7 score (0-4 normal; 5-9 mild; 10-14 moderate; 15-21 severe): 0 Source: Developed by Drs. Emery López, Parul Kasper, Elvin Moreno and colleagues, with an educational fredi from [employer]. JOSEP-7 Assessment Billing JOSEP-7 Assessment Tool: JOSEP-7 Assessment 44075 Review of Systems Narrative Review of Systems - Cardiovascular: Reports leg swelling. Denies chest pain or orthopnea. - Respiratory: Denies shortness of breath and cough. - Gastrointestinal: Denies black or bloody stools. - Musculoskeletal: Reports back pain with walking. Denies calf tenderness. - Endocrine: Reports two episodes of hypoglycemia about 1.5 months ago. - Constitutional: Denies recent falls. Const All systems reviewed & are unremarkable except as noted in HPI and below Physical exam (Primary Care) Vital Signs: Last Vital Signs Temp 97.3 F 10/22/25 09:57 Pulse 67 10/22/25 09:57 BP 160/76 H 10/22/25 09:57 Pulse Ox 95 10/22/25 09:57 Care Plan Goal for BP management: <140/90 at Goal BMI result Body Mass Index 36.5 BMI Assessment/Plan discussion: High BMI High, discussed plan: lifestyle, weight reduction, dietary, physical activity, alcohol moderation and other Tobacco/Smoking Status: Tobacco use Status Tobacco use date assessed 06/11/25 10/22/25 09:46 Patient Tobacco Use Status Never used Tobacco 10/22/25 09:46 PHQ-9: PHQ-9 Score PHQ-9: Total score 0 10/22/25 10:28 Depression Screening Interpretation: Negative Thrive Assessment: Date of Thrive Assessment Date Thrive assessed 06/11/25 10/22/25 09:46 Narrative Physical Exam Appearance: Alert. Oriented X3. No acute distress. Head: Normal external exam. Normocephalic. Atraumatic. Eyes: Pupils are equal, round, and reactive to light. Extraocular movements intact. Conjunctiva and sclera normal. Eyelids normal. Ears: External auditory canal normal. Tympanic membranes normal. Throat: Pharynx normal. Uvula midline. Moist mucous membranes. Neck: Normal inspection. Neck supple. Full range of motion. No adenopathy. Thyroid Normal. No meningeal signs. No neck mass noted. Cardiovascular: Normal heart rate and rhythm. Heart sound normal. No murmurs noted. Pulses normal throughout. Respiratory: No respiratory distress. Painless inspiration. Breath sounds normal. No wheezes/rales/rhonchi noted. Chest nontender. No accessory muscle usage noted or decreased air movement noted. Abdomen: Soft and nontender. Bowel sounds normal in all 4 quadrants. No distention noted. No organomegaly noted. No visible injury noted. Back: No costovertebral angle tenderness. Full range of motion noted. Skin: Skin warm and dry. Normal skin color. Normal skin turgor. No rashes/lesions/lacerations noted. Extremities: Mild swelling of legs noted, but not significant. No calf tenderness. Extremities exhibit normal range of motion. Extremities nontender. Neuro: Oriented X 3. No motor deficit. No sensory deficit. Reflexes normal. Office Procedures Flu Questionnaire Does the patient have a severe egg allergy?: No Does the patient have severe life threatening allergies?: No Does the patient have a fever or illness today?: No Has the patient ever had Guillain-[place] Syndrome?: No Has the patient ever had any past reaction to a flu shot?: No Results AMB Hemoglobin A1c AMB Hemoglobin A1c 6.6 % Last Edit by CARMELA Greenwood on 10/22/25 10:27 Immunizations Fluarix [id number] (PF) 45 mcg (15 mcg x 3)/0.5 mL IM syringe Performing Provider: Trice Chou PA-C [facility] Documented (not given) by: Adela Israel on 10/22/25 10:03 Reason Not Given: Patient Refused Results Reviewed Results Reviewed: Laboratory Last Values Hgb A1c (Clinic) 6.6 % (4.0-6.0) H 10/22/25 10:26 Results - Hemoglobin A1c: 6.6%. - CBC: WBC 13,000 (chronic), H&H 12.0, platelet count normal. - Comprehensive Metabolic Panel: Creatinine 1.69, GFR 40, BUN 55, sodium normal, potassium normal, chloride 109, calcium normal, phosphorus normal, magnesium normal. - Vitamin D: Low. - Microalbumin: Normal. - Incomplete labs: Lipid panel, liver enzymes, PSA, thyroid panel, and vitamin B12 were not completed and need to be redrawn. Coding Level of Care Code Est Pt Prev Care >65y(33286) Add On Preventative Visit Only Diagnoses Type 2 diabetes mellitus with hemoglobin A1c goal of less than 7.0% E11.9 CKD stage 3b, GFR 30-44 ml/min N18.32 Healthcare maintenance Z00.00 Additional Codes JOSEP-7 Assessment Billing - JOSEP-7 Assessment Tool: JOSEP-7 Assessment 23791 ([id number]) PHQ-9 - 00519 - PHQ-9 Billing: Yes ([id number]) Time Spent (min) 60 Assessment & Plan Assessment & Plan (1) Type 2 diabetes mellitus with hemoglobin A1c goal of less than 7.0%: Code(s): E11.9 - Type 2 diabetes mellitus without complications Category: Medical Plan: The patient experienced two episodes of hypoglycemia about a month and a half ago. Due to the risk of hypoglycemia, particularly with his age and chronic kidney disease, glyburide will be discontinued completely. He will continue taking Actos and metformin. A follow-up is scheduled in three months to monitor his hemoglobin A1c. If the A1c is above 7.0%, treatment may be adjusted by increasing metformin or adding a once-weekly injectable. (2) CKD stage 3b, GFR 30-44 ml/min: Code(s): N18.32 - Chronic kidney disease, stage 3b Category: Medical Plan: The patient's creatinine has slightly increased to 1.69 and his GFR is 40. He will continue to be followed by his community health nurse, Dr. Becerra. His anemia is stable and considered secondary to his CKD. Management of his diabetes was adjusted with his kidney function in mind. (3) Healthcare maintenance: Code(s): Z00.00 - Encounter for general adult medical examination without abnormal findings Category: Medical Plan: The patient needs to have repeat lab work done, as the previous draw was incomplete. An order will be provided for a lipid panel, liver function tests, PSA, thyroid panel, and vitamin B12. Information on his last colonoscopy will be requested for his chart. The patient takes a prescribed vitamin D supplement for his deficiency. A telehealth follow-up will be scheduled in three months while he is in [place] to review his hemoglobin A1c. Plan Plan Patient was informed and verbally consented to the use of an ambient scribe for clinic note documentation during this visit. 1. Type 2 Diabetes Mellitus With Hypoglycemia The patient experienced two episodes of hypoglycemia about a month and a half ago. Due to the risk of hypoglycemia, particularly with his age and chronic kidney disease, glyburide will be discontinued completely. He will continue taking Actos and metformin. A follow-up is scheduled in three months to monitor his hemoglobin A1c. If the A1c is above 7.0%, treatment may be adjusted by increasing metformin or adding a once-weekly injectable. 2. Chronic Kidney Disease The patient's creatinine has slightly increased to 1.69 and his GFR is 40. He will continue to be followed by his community health nurse, Dr. Becerra. His anemia is stable and considered secondary to his CKD. Management of his diabetes was adjusted with his kidney function in mind. 3. Health Maintenance The patient needs to have repeat lab work done, as the previous draw was incompl ete. An order will be provided for a lipid panel, liver function tests, PSA, thyroid panel, and vitamin B12. Information on his last colonoscopy will be requested for his chart. The patient takes a prescribed vitamin D supplement for his deficiency. A telehealth follow-up will be scheduled in three months while he is in [place] to review his hemoglobin A1c. Discussion Notes I discussed the recent episodes of low blood sugar with the patient. I explained that glyburide, an older medication, can cause sudden drops in blood sugar, especially in older adults and those with chronic kidney disease, and can be dangerous. Therefore, I recommended discontinuing glyburide completely and continuing with metformin and Actos. We reviewed his recent labs, noting his A1c is well-controlled at 6.6% and his kidney function shows a slight decline but is relatively stable. We also discussed the need for repeat bloodwork for cholesterol, liver function, PSA, thyroid, and B12, as these tests were missed in the recent lab draw. I arranged for a follow-up telehealth appointment in three months to monitor his diabetes management after stopping glyburide. I will provide him with an order to get a hemoglobin A1c test done at a lab in [place] before our telehealth call, and we identified a convenient lab location for him. I advised him to take his glyburide prescription with him to [place] just in ca se his sugars run high, but to use it sparingly and not regularly. I instructed him to continue his Lasix for leg swelling. The patient's physical exam was largely unremarkable, with only mild leg swelling noted. Orders: Orders AMB Hemoglobin A1c Today E11.9 - Type 2 diabetes mellitus without complications Hemoglobin A1c Today Z00.00 - Encounter for general adult medical examination without abnormal findings Influenza [id number] Immunization Today Z23 - Encounter for immunization Patient Instructions: Patient Instructions - Stop taking your glyburide medication completely. - Continue taking your other diabetes medications, metformin and Actos, as prescribed. - Take the glyburide prescription with you to [place] just in case your sugar levels are high, but only use it occasionally if needed. - You will need to go back to the lab for more blood tests, including for cholesterol, liver, PSA (prostate), thyroid, and vitamin B12. - You have a prescription from your kidney doctor for your low vitamin D. - Continue taking Lasix for your leg swelling. - We have scheduled a telephone follow-up appointment in three months. - Before your phone appointment, you will need to get a blood test (hemoglobin A1c) done in [place]. You can go to the [facility] at [address] [place] [address] in [facility].
[2025-10-22 09:57] VITALS: BP 136/76; PULSE 67; TEMP 36.3; O2SAT 95; BMI 36.5
== END 2025-10-22 10:44 | disposition home or self-care (01) ==
LOC: HO.HMCSH 09:41
PROVIDERS: PCP Physician Assistant Medical; Visit Provider Physician Assistant Medical
DX: Z00.00 Encounter for general adult medical examination without abnormal findings (principal); E11.9 Type 2 diabetes mellitus without complications; N18.32 Chronic kidney disease, stage 3b; Z23 Encounter for immunization

== ENCOUNTER → 2025-10-22 09:41 | Outpatient (BNVA) | payer MEDICARE, SELFPAY | PROVIDERS: PCP Physician Assistant Medical; Visit Provider Physician Assistant Medical | DX: Z00.00 Encounter for general adult medical examination without abnormal findings (principal); E11.9 Type 2 diabetes mellitus without complications; N18.32 Chronic kidney disease, stage 3b | CPT/HCPCS: 83036; 90471; 96127; 99212 ==

== ENCOUNTER 2025-10-25 11:51 | Outpatient (REF) | payer MEDICARE, SELFPAY ==
--- NOTE | ~2025-10-25 | XR_ITS ---
EXAM: CR Xr Foot Rt Min 3v TECHNIQUE: 3 views of the right foot INDICATION: M79.671 - Pain in right foot PRIOR: None FINDINGS: Moderate atherosclerotic ossifications are present. There is mild narrowing and minute marginal osteophytes involving the first tarsometatarsal joint. There are multiple linear ossifications in the distal Achilles tendon. Intermetatarsal angle: Angle between the first and second metatarsal measured 4 degrees. (wnl <10 degrees). Metatarsophalangeal angle: Angle between the first metatarsal and proximal phalanx measured 26 degrees. (wnl <15 degrees). Interphalangeal angle: Angle between the proximal and distal phalanx measured 13 degrees. (wnl <10 degrees). Sesamoid position: Station 1 There is a bipartite medial sesamoid. Station Criterion 0 medial sesamoid completely medial to mid-axial line of the first metatarsal 1 medial sesamoid less than 50% overlapping the midline 2 medial sesamoid greater than 50% overlapping the midline 3 medial sesamoid completely lateral to the midline [Foot Ankle. Jul-Aug 1984;5(2):92-103. Hallux valgus assessment: report of research committee of [employer] [employer]] XR/XR foot RT min 3V IMPRESSION: Hallux valgus deformity. Mild first TMT joint osteoarthritis. Electronically signed by: Guevara Vo MD 10/25/2025 01:38 PM EST
[2025-10-25 17:01] LABS: Alanine Aminotransferase 28 U/L (0-40); Albumin Level 4.3 g/dL (3.5-5.0); Alkaline Phosphatase 116 U/L (39-117); Aspartate Amino Transferase 26 U/L (5-37); Cholesterol 146 mg/dL (<200); HDL Cholesterol 43 mg/dL (>40); Total Protein 7.4 g/dL (6.5-8.0); Triglycerides 139 mg/dL (<150)
[2025-10-25 17:04] LABS: PSA,Total (Free>4and<10) 0.98 ng/mL (0.00-4.00)
[2025-10-25 17:19] LABS: Folate 9.8 ng/mL (> or = 4.0); Vitamin B12 332 pg/mL (200-900)
== END 2025-10-25 11:52 | disposition home or self-care (01) ==
LOC: HO.HMGCX 11:51
PROVIDERS: Absent Provider Physician Assistant Medical; PCP Physician Assistant Medical; Visit Provider Physician Assistant Medical
DX: Z00.00 Encounter for general adult medical examination without abnormal findings (principal); M79.671 Pain in right foot; M79.89 Other specified soft tissue disorders; Z13.6 Encounter for screening for cardiovascular disorders; Z13.29 Encounter for screening for other suspected endocrine disorder; Z13.1 Encounter for screening for diabetes mellitus; Z12.5 Encounter for screening for malignant neoplasm of prostate
CPT/HCPCS: 36415; 73630; 80061; 80076; 82607; 82746; 83036; 84153; 84443

== ENCOUNTER 2025-10-25 11:51 | Outpatient (AMB) | payer MEDICARE, SELFPAY ==
--- OUTSIDE RECORDS SUMMARY | 2025-06-27 06:00 | XMS_ITS ---
[facility] Address [address] [place] [address] Care Team Providers Care Slot Router Name Role Phone Keegan Miller Primary Care Provider [phone] Birgit Sandoval [phone] [place] Encounters Encounter Location Date Provider Diagnosis [address] [address] 06/27/2025 Birgit Sandoval Plan Of Treatment Next Appt Details Provider Name:Birgit chang, 03/26/2026 11:00:00 AM, [address] [place], [address], Progress Notes * Juan Antonio FERNANDESDOB:[birth year] (75 yo M)Acc No.[id number]:06/27/2025 Progress Note Patient: Chip ORELLANAlas Provider: Alexandru Sandoval DPM :1950 A ge:75 Y S ex:Male Date:06/27/2025 Address:[address] [id number] Pcp:Keegan Miller Subjective: * Chief Complaints: * [...] 0 06/27/2025 Generated for Ann Nguyen on: 12/26/2024 03:45 PM EST
[2025-10-25 12:13] VITALS: BP 128/54; PULSE 74; O2SAT 95; BMI 36.8
--- NOTE | 2025-10-25 12:13 | MHC.OFFWIV ---
Intake Vital Signs 10/25/25 12:13 Height 5 ft 7 in Weight 235 lb BMI 36.8 BP 128/54 L Blood Pressure Location Lt brachial Position Sitting Pulse 74 Pulse Source Pulse Oximeter Pulse Oximetry (%) 95 Oxygen Delivery Method Room Air Intake Visit Reasons: EP Rt foot pain Intake Note: Patient presents c/o right foot pain/swelling x1 week - unknown injury. Patient Tobacco Use Status: Never used Tobacco Allergies No Known Allergies Allergy (Verified 10/25/25 12:16) HPI HPI Comments History of Present Illness Details History of Present Illness - The patient is a 75 year old male presenting with a right swollen and sore foot. - The pain started approximately one week ago, and he denies any specific trauma or injury. - He reports the pain is localized to the top of his right foot and is worse when he steps on it. - Associated symptoms include some swelling at the front of the foot. - He denies any numbness or tingling in the foot. 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 - The patient is not taking any medication for the pain. - He denies fever, chills, joint pain, CP, or SOB. Physical Exam General: Cooperative, healthy appearing, comfortable, no acute distress and well developed Orientation: Patient oriented x3 Respiratory: Normal respiratory effort and able to speak in complete sentences. Clear to auscultation bilaterally Cardiovascular: Regular rate and rhythm. Normal S1 and S2. Pulses are 2+ Skin: No rashes or lesions noted. No ecchymosis noted. No ulcers noted, no erythema noted. Neuro: Sensation is intact. Extremities: Swelling noted at the top of the right foot. Hallux deformity noted. TTP across the top of the right foot. No TTP of the medial or lateral ankle. No TTP of the calcaneous, Achilles, plantar fascia, forefoot, or MCP joint. Ambulates with a limp. Strength is 5/5 on the lower extremity. No calf tenderness noted. FROM of the knee. Patient was informed and verbally consented to the use of an ambient scribe for clinic note documentation during this visit. [facility] Medical History (Updated 10/22/25 @ 10:47 by Trice Chou PA-C) Healthcare maintenance Severe obesity with body mass index (BMI) of 36.0 to 36.9 with serious comorbidity Venous ulcer of right leg Chronic anemia CKD stage 3b, GFR 30-44 ml/min Type 2 diabetes mellitus with hemoglobin A1c goal of less than 7.0% Surgical History (Updated 10/23/25 @ 17:00 by Trice Chou PA-C) History of colonoscopy (~12/04/16) History of cardiac cath Family History Mother Skin cancer Father Skin cancer Social History Housing: House Alcohol intake: current Alcohol intake frequency: does not drink Patient Tobacco Use Status: Never used Tobacco service: No Current occupational status: employed Cognitive needs: No Hearing needs: No Vision needs: No Review of Systems Const All systems reviewed & are unremarkable except as noted in HPI and below Physical Exam Vital Signs: Last Vital Signs Pulse 74 10/25/25 12:13 BP 128/54 L 10/25/25 12:13 Pulse Ox 95 10/25/25 12:13 Oxygen Delivery Method Room Air 10/25/25 12:13 BMI result Body Mass Index 36.8 Results Reviewed Results Reviewed: will review the xray in the office IMPRESSION: Hallux valgus deformity. Mild first TMT joint osteoarthritis. Assessment & Plan Assessment & Plan (1) Swelling of right foot: Code(s): M79.89 - Other specified soft tissue disorders Plan Most likely arthritis vs strain vs dependent edema vs gout plan - The patient presents with atraumatic right foot pain and swelling that started about a week ago. - To evaluate for a possible fracture, an X-ray of the foot will be obtained. - A supportive shoe will be provided to the patient to aid with ambulation. - wear compression stockings - rest and elevate the foot - tylenol or naproxen as needed for pain - prednisone burst for 5 days Orders: Orders XR foot RT min 3V Today M79.671 - Pain in right foot, M79.89 - Other specified soft tissue disorders Medications: New prednisone 40 mg (2 x 20 mg) PO DAILY 10 tabs 0RF 5 days naproxen 500 mg PO Q12H PRN 20 tabs 0RF pain 7 days Coding Level of Care Code Est Pt Level 4 (76353) Diagnoses Swelling of right foot M79.89
--- OUTSIDE RECORDS SUMMARY | 2025-10-25 15:45 | XMS_ITS | Patient Health Record ---
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 Problems Problem Type SNOMED Code ICD Code Onset Dates Problem Status W/U Status Risk Notes Problem Rectal bleeding (43489246) Rectal bleeding (K62.5) Active confirmed Problem Abnormal feces (444850554) Abnormal findings in stool (R19.5) Active confirmed Plan Of Treatment Future Test Test Name Order Date COLONOSCOPY 08/05/2012 COLONOSCOPY 08/13/2016 Insurance Providers Payer Name Payer Address Payer Phone Subscriber Number Group Number Insured Name Patient Relationship to Insured Coverage Start Date Coverage End Date MED[employer] OF [employer] [address] [place] [address] [phone] [id number] CR FERNANDES Self - patient is the insured Medical (General) History Medical History History ICD Code diabetes hypertension Denies PA,CVA,Lung disease,renal disease hypercholesterolemia
--- OUTSIDE RECORDS SUMMARY | 2025-10-25 15:45 | XMS_ITS | Patient Health Record ---
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 Name Role Phone Paul, Kartik Primary Care Provider [phone] Birgit Sandoval Unavailable [phone] Allergies No Known Allergies Results Component Value [...] Problem Acquired hammer toe of right foot (8588453388387299 ) Other hammer toe(s) (acquired), right foot (M20.41) Active confirmed Problem Acquired hammer toe of left foot (4021424276918409 ) Other hammer toe(s) (acquired), left foot (M20.42) Active confirmed Problem Polyneuropathy due to type 2 diabetes mellitus (763935200) Type 2 diabetes mellitus with diabetic polyneuropathy (E11.42) Active confirmed Vital Signs Blood pressure diastolic 65 mm Hg 10/16/2025 Height 5ft9in in 10/16/2025 Blood pressure systolic 130 mm Hg 10/16/2025 Weight 240 lbs 10/16/2025 BMI 35.44 kg/m2 10/16/2025 Encounters Encounter Location Date Provider Diagnosis [facility] [address] 10/27/2024 Birgit Sandoval Type 2 diabetes mellitus with diabetic polyneuropathy E11.42 ; Ingrown nail L60.0 and T[facility]guium B35.1 [facility] [address] 01/19/2025 Birgit Sandoval Type 2 diabetes mellitus with diabetic polyneuropathy E11.42 ; Tinea unguium B35.1 ; Other hammer toe(s) (acquired), right foot M20.41 and Other hammer toe(s) (acquired), left foot M20.[address] [address] 04/04/2025 Birgit Sandoval Type 2 diabetes mellitus with diabetic polyneuropathy E11.42 and Tinea unguium B35.[address] [address] 07/06/2025 Birgit Sandoval Type 2 diabetes mellitus with diabetic polyneuropathy E11.42 and Tinea unguium B35.[address] [address] 10/16/2025 Birgit Sandoval Type 2 diabetes mellitus [...] Treatment Pending Test Test Name Order Date [id number] NAIL, 6 OR MORE 01/05/2018 [id number] NAIL, 6 OR MORE 04/01/2018 77772-OBVFXNF NAIL, 6 OR MORE 07/05/2018 68787-RADGIZR NAIL, 6 OR MORE 10/04/2018 49387-Ltrwybkh Plate 07/05/2018 18814-OOLA SKIN LESIONS, OVER 4 07/05/20 18 09551-HEKS SKIN LESIONS, OVER 4 04/01/20 18 32400-GYOL SKIN LESIONS, OVER 4 01/05/20 18 13079-MZIG SKIN LESIONS, OVER 4 10/04/20 18 Next Appt Details Provider Name:Birgit chang, 03/26/2026 11:00:00 AM, [address] [place], [address], Insurance Providers Payer Name Payer Address Payer Phone Subscriber Number Group Number Insured Name Patient Relationship to Insured Coverage Start Date Coverage End Date Medicare [employer] [address] [facility] [place] [address] [id number] Juan Antonio Gaines Self - patient is the insured 4 Medical (General) History Medical History History ICD Code Diabetic type 2 High blood pressure Measles Surgical History Surgery Date(Month/Year) Stent x2 placed 05/2019
--- OUTSIDE RECORDS SUMMARY | 2025-10-25 15:46 | XMS_ITS | Clinical Summary ---
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 Active NIFEdipine XL (PROCARDIA XL) 60 MG 24 hr tablet TAKE ONE TABLET BY MOUTH EVERY DAY ALONG WITH 30 MG 5 Active ergocalciferol 1.25 MG (32334 UT) capsule Take 1 capsule (50,000 Units total) by mouth every 14 (fourteen) days 6 capsule 5 01/17/20 26 Active Active Problems Problem Noted Date Diagnosed Date Polyneuropathy due to type 2 diabetes mellitus 0 06/01/2024 Essential (primary) hypertension 06/01/2024 Stage 3b chronic kidney disease 06/01/2024 Type 2 diabetes mellitus wit h diabetic chronic kidney disease 06/01/2024 Renal osteodystrophy 06/01/2024 Encounters Date Type Department Care Team Description 10/18/2025 1:15 PM EST Office Visit [facility] [address] [place] [address] Melvin Becerra MD Stage 3b chronic kidney disease (HCC) (Primary Dx); Renal osteodystrophy; Essential (primary) hypertension 09/24/2025 Orders Only [facility] [address] [place] [address] Melvin Becerra MD Stage 3b chronic kidney [...] Sign Reading Time Taken Comments Blood Pressure 122/64 10/18/2025 1:28 PM EST Pulse 78 10/18/2025 1:28 PM EST Temperature - - Respiratory Rate - - Oxygen Saturation 94% 10/18/2025 1:28 PM EST Inhaled Oxygen Concentration - - Weight 107 kg (235 lb 12.8 oz) 10/18/2025 1:28 P M EST Height - - Body Mass Index - - Plan of Treatment Upcoming Encounters Date Type Department Care Team (Late st Contact Info) Description 05/02/2026 1:45 PM EDT Office Visit [facility] [address] [place] [address] Melvin Becerra MD [address] [facility] [address] [place] [address] Health Maintenance Due Date Last [...] ORDERABLES Final Re sult Performing Organization Address [facility] Phone Number [place] See order comments [place] [address] * Albumin, urine, random (10/17/2025 2:31 PM EST) Creatinine, Urine 103.70 mg/dL Se e order comments Urine Microalbumin 13.0 mg/L See order comments Microalbumin/Crea tinine Ratio 12.5 <30 ug/mg cr See order comments Comment: Albumin/Creatinine Ratio Reference Ranges: Normal: < 30 ug/mg creatinine Microalbuminuria: 30 - 300 ug/mg creatinine Clinical Albuminuria: > 300 ug/mg creatinine 10/17/2025 2:31 PM EST 10/17/2025 2:31 PM EST Result [facility] us Melvin Becerra MD LAB URINE ORDERABLES Final Re sult Performing Organization Address [facility] Phone [facility] See order comments [place] [address] * Urinalysis (10/17/2025 2:31 PM EST) Color Urine Yellow See orde r comments Appearance Urine Clear See order comments pH Urine 6.0 5.0 - 9.0 See order comments Glucose Urine Negative Negative mg/dL See order comments Blood, Urine Negative Negative See ord er comments Specific [place] Urine 1.015 1.005 - 1.025 See order comments Protein Urine Negative Neg-Trace mg/dL See order comments Ketones, Urine Negative Negative mg/dL See order comments Nitrite, Urine Negative Negative See o rder comments Leukocyte Esterase Urine Negative Negative See order comments 10/17/2025 2:31 PM EST 10/17/2025 2:31 PM EST us Melvin Becerra MD LAB URINE ORDERABLES Final Re sult Performing Organization Address [facility] de Phone Number [facility] See order comments [place] [address] from Last 3 Months Insurance Medicare Medicare Care Teams Sanitary Landfill Operator Relationship Specialty Start Date End Date Keegan Miller MD [facility] [address] [place] [address] [place] [address] PCP - General Internal Medicine 10/18/25
== END 2025-10-25 14:04 | disposition home or self-care (01) ==
PROVIDERS: PCP Physician Assistant Medical; Visit Provider Physician Assistant Medical
DX: M79.89 Other specified soft tissue disorders (principal)

== ENCOUNTER → 2025-10-25 13:21 | Outpatient (BNV) | payer MEDICARE, SELFPAY | PROVIDERS: Absent Provider Physician Assistant Medical; PCP Physician Assistant Medical; Visit Provider Radiology Diagnostic Radiology | DX: M19.071 Primary osteoarthritis, right ankle and foot (principal); M20.11 Hallux valgus (acquired), right foot | CPT/HCPCS: 73630 ==